=== PATIENT | female | born 1935 | race Caucasian/White ===

== ENCOUNTER 2016-04-18 10:11 | Outpatient (CLI) | payer MEDICARE, OTHER | END 2016-04-18 10:12 | disposition home or self-care (01) | DX: Z13.820 Encounter for screening for osteoporosis (principal); M85.88 Other specified disorders of bone density and structure, other site; Z78.0 Asymptomatic menopausal state ==

== ENCOUNTER 2016-07-01 08:20 | Outpatient (CLI) | payer MEDICARE, OTHER | END 2016-07-01 23:59 | DX: E78.2 Mixed hyperlipidemia (principal); Z79.899 Other long term (current) drug therapy ==

== ENCOUNTER 2016-07-25 09:05 | Outpatient (CLI) | payer MEDICARE, OTHER | END 2016-07-25 09:06 | disposition home or self-care (01) | DX: R47.01 Aphasia (principal); F03.90 Unspecified dementia, unspecified severity, without behavioral disturbance, psychotic disturbance, mood disturbance, and anxiety; I65.22 Occlusion and stenosis of left carotid artery ==

== ENCOUNTER 2016-07-25 09:08 | Outpatient (CLI) | payer MEDICARE, OTHER | END 2016-07-25 09:09 | disposition home or self-care (01) | DX: F03.90 Unspecified dementia, unspecified severity, without behavioral disturbance, psychotic disturbance, mood disturbance, and anxiety (principal); R47.01 Aphasia; J34.89 Other specified disorders of nose and nasal sinuses ==

== ENCOUNTER 2016-07-25 09:24 | Outpatient (CLI) | payer MEDICARE, OTHER | END 2016-07-25 09:25 | disposition home or self-care (01) | DX: D70.9 Neutropenia, unspecified (principal); D63.1 Anemia in chronic kidney disease; R80.9 Proteinuria, unspecified ==

== ENCOUNTER 2016-09-06 16:04 | Outpatient (CLI) | payer MEDICARE, OTHER | END 2016-09-06 16:05 | disposition home or self-care (01) | LOC: LAB.N 16:04 | PROVIDERS: ATTEND Nurse Practitioner Primary Care | DX: F03.90 Unspecified dementia, unspecified severity, without behavioral disturbance, psychotic disturbance, mood disturbance, and anxiety (principal) | CPT/HCPCS: 36415; 82607 ==

== ENCOUNTER 2016-09-19 11:39 | Emergency (ER) | payer MEDICARE, OTHER ==
--- NOTE | 2016-09-19 12:24 | ED Physician Documentation ---
PD HPI CHEST PAIN - Stated complaint Stated Complaint: CHEST PX - Chief complaint Chief Complaint: Cardiac - History obtained from History obtained from: Patient - History of Present Illness Timing - onset: How many days ago (2-3 days of intermittent left chest or shoulder pains, aching and lasts seconds to a minute or two. Random occurrence not associated with position, activity, breathing, eating. Has been left chest at times and left anterior shoulder at times. No feeling of palpitations. No associated dyspnea, lightheaded, nausea, nor pleuritic component.) Timing - onset during: Other (has occurred randomly through the day about 3-4 times each day and lasted just seconds/minute. Has not had it awaken her. Did not feel it with walking around/activity at any point.) Timing - duration: Seconds, Minutes Timing - details: Abrupt onset, Intermittant Quality: Aching Location: Left chest, Left shoulder/arm Radiation: No: Jaw, Neck, Back Improved by: No: Rest Worsened by: No: Exertion, Inspiration, Eating, Movement Associated symptoms: No: Shortness of air, Diaphoresis, Nausea, Feeling faint / dizzy, General Weakness, Palpitations Similar symptoms before: Has not had sx before Recently seen: Not recently seen Review of Systems Constitutional: denies: Fever, Chills Nose: denies: Rhinorrhea / runny nose, Congestion Throat: denies: Sore throat Cardiac: denies: Palpitations, Pedal edema, Calf pain Respiratory: denies: Dyspnea, Cough, Wheezing GI: denies: Abdominal Pain, Nausea, Vomiting, Diarrhea : denies: Dysuria, Frequency Skin: denies: Rash, Lesions Neurologic: denies: Focal weakness, Numbness, Near syncope, Altered mental status, Headache Psychiatric: denies: Insomnia Endocrine: denies: Weight loss Immunocompromised: denies: Immunocompromised PD PAST MEDICAL HISTORY - Past Medical History Past Medical History: Yes Cardiovascular: Congestive heart failure, Hypertension, High cholesterol, Murmur Respiratory: None Neuro: Peripheral neuropathy Endocrine/Autoimmune: None GI: Ulcers, Colon polyps : None HEENT: Chronic sinusitis Psych: None Musculoskeletal: Osteoarthritis Derm: None - Past Surgical History Past Surgical History: Yes General: Appendectomy, Colonoscopy, EGD Ortho: Knee replacement, 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, Oophrectomy Cardiovascular: Other HEENT: Cataracts - Present Medications Home Medications: Ambulatory Orders Medication Instructions Recorded Confirmed Doxazosin [Cardura] 4 mg PO BID 08/09/12 09/19/16 Gabapentin 1,200 mg PO BID 08/09/12 09/19/16 Multivitamin [Multivitamins] 1 each PO DAILY 08/09/12 09/19/16 Polyethylene Glycol 3350 [Miralax] 17 gm PO DAILY PRN 08/09/12 09/19/16 hydrALAZINE [Apresoline] 50 mg PO BID 08/09/12 09/19/16 Allopurinol 100 mg PO DAILY 09/10/12 09/19/16 Acetaminophen [Tylenol] 500 mg PO Q6H PRN 12/31/12 09/19/16 Furosemide [Lasix] 40 mg PO DAILY 04/17/13 09/19/16 DULoxetine [Cymbalta] 20 mg PO DAILY 07/27/16 09/19/16 - Allergies Allergies/Adverse Reactions: Allergies Allergy/AdvReac Type Severity Reaction Status Date / Time amoxicillin trihydrate * AdvReac Rash Verified 09/19/16 11:53 [From Augmentin] niacin AdvReac Rash Verified 09/19/16 11:53 [From Niaspan Extended-Release] potassium clavulanate * AdvReac Rash Verified 09/19/16 11:53 [From Augmentin] - Social History Does the pt smoke?: No Smoking Status: Former smoker Does the pt drink ETOH?: Yes Does the pt have substance abuse?: No - Family History Family history: reports: Non contributory - Immunizations Immunizations are current?: Yes - POLST Patient has POLST: No PD ED PE NORMAL - Vitals Vital signs reviewed: Yes - General General: Alert and oriented X 3, Well developed/nourished, Other (some short term memory deficit but alert and conversant.) - HEENT HEENT: Atraumatic, Pharynx benign - Neck Neck: Supple, no meningeal sign, No adenopathy, No JVD - Cardiac Cardiac: RRR, Other (2/6 murmur left chest to back likely c/w mitral valve; patient says she has had murmur since age 9.) - Respiratory Respiratory: Clear bilaterally - Abdomen Abdomen: Soft, Non tender - Back Back: No CVA TTP - Derm Derm: Normal color, Warm and dry - Extremities Extremities: No deformity, Normal ROM s pain, No edema, No calf tenderness / cord - Neuro Neuro: Alert and oriented X 3, No motor deficit, Normal speech - Psych Psych: Normal mood, Normal affect Results - Vitals Vitals: Vital Signs - 24 hr 09/19/16 09/19/16 09/19/16 11:42 11:45 12:15 Temperature 36.4 C L Heart Rate 57 L 58 L Respiratory 16 18 Rate Blood Pressure 174/60 H 176/62 H Blood Pressure 160/82 H [Right] O2 Saturation 94 98 09/19/16 09/19/16 13:10 14:05 Temperature Heart Rate 57 L 58 L Respiratory 16 16 Rate Blood Pressure 172/61 H 166/56 H Blood Pressure [Right] O2 Saturation 97 Oxygen O2 Source Room air - EKG (time done) 11:49 Rate: Rate (enter#) (55), Jim Rhythm: Sinus bradycardia [place]: Normal Intervals: Normal [place] QRS: Normal Ischemia: Normal ST segments, ST elevation c/w repol. No: ST elevation c/w ischemia, ST depression, T wave inversion - Labs Labs: Laboratory Tests 09/19/16 09/19/16 09/19/16 11:58 11:58 11:58 WBC 3.7 L RBC 3.70 L Hgb 11.8 L Hct 35.9 L MCV 96.8 MCH 31.8 H MCHC 32.8 RDW 15.8 H Plt Count 99 L MPV 10.5 Neut # 2.2 Lymph # 1.1 L Ward # 0.3 Eos # 0.1 Baso # 0.0 Absolute Nucleated RBC 0.00 Nucleated RBCs 0.1 Sodium 140 Potassium 5.9 H Chloride 108 Carbon Dioxide 23 Anion Gap 9.0 BUN 93 H* Creatinine 2.3 H Estimated GFR (MDRD) 20 L Glucose 85 Calcium 10.5 H Total Bilirubin 0.7 AST 43 H ALT 39 Alkaline Phosphatase 70 Troponin I < 0.04 B-Natriuretic Peptide Total Protein 7.2 Albumin 4.4 Globulin 2.8 Albumin/Globulin Ratio 1.6 Lipase 64 H 09/19/16 11:58 WBC RBC Hgb Hct MCV MCH MCHC RDW Plt Count MPV Neut # Lymph # Ward # Eos # Baso # Absolute Nucleated RBC Nucleated RBCs Sodium Potassium Chloride Carbon Dioxide Anion Gap BUN Creatinine Estimated GFR (MDRD) Glucose Calcium Total Bilirubin AST ALT Alkaline Phosphatase Troponin I B-Natriuretic Peptide 123 H Total Protein Albumin Globulin Albumin/Globulin Ratio Lipase - Rads (name of study) chest Radiology: Prelim report reviewed (no acute process) PD MEDICAL DECISION MAKING - ED course Complexity details: reviewed results, considered differential (brief, nonexertional left chest/shoulder pains for the past couple of days. Normal labs. Unclear etiology but not having markers to suggest threatening process. ) , d/w patient Departure - Departure Disposition: 01 Home, Self Care Clinical Impression: Intermittent left-sided chest pain, Chronic kidney disease stage 4 Condition: Stable Record reviewed to determine appropriate education?: Yes Instructions: ED Chest Pain Atypical Unkn Cause Follow-Up: Daina Burnham MD [Primary Care Provider] - Comments: Tylenol 500 mg 4 times daily for pain as needed. Usual medications. Recheck with PMD if symptoms persist. Return to ED if consistent/worse pain. At least one of your blood pressure readings in the ER today was elevated above the normal level. If you have diagnosed high blood pressure in the past, please be sure you are taking your BP medications and eating low salt diet. If you do not have know high BP, then being high today does not mean it is a rat exterminator issue. It might be reactively high to the situation that has you here. You should follow up with your primary care to have the blood pressure checked again in the next few days/week or so to see if it is persistently high. If so, then you may need medication or changes in diet/lifestyle to treat it. Discharge Date/Time: 09/19/16 14:21
[2016-09-19] MEDS ORDERED: ASPIRIN 325 MG TABLET PO STA (12:42)
[2016-09-19] MEDS ORDERED: ASPIRIN 325 MG TABLET PO ONE (12:47)
[2016-09-19 12:59] LABS: BASOPHILS % (AUTO) 0.7 %; EOSINOPHILS # (AUTO) 0.1 10^3/uL (0.0-0.7); EOSINOPHILS % (AUTO) 2.5 %; HCT - HEMATOCRIT 35.9 % (37.0-47.0); HGB - HEMOGLOBIN 11.8 g/dL (12.0-16.0); LYMPHOCYTES # (AUTO) 1.1 10^3/uL (1.5-3.5); LYMPHOCYTES % (AUTO) 29.5 %; MEAN CORPUSCULAR HEMOGLOBIN 31.8 pg (27.0-31.0); MEAN CORPUSCULAR HGB CONC 32.8 g/dL (32.0-36.0); MEAN CORPUSCULAR VOLUME 96.8 fL (81.0-99.0); MEAN PLATELET VOLUME 10.5 fL (7.9-10.8); MONOCYTES # (AUTO) 0.3 10^3/uL (0.0-1.0); MONOCYTES % (AUTO) 8.2 %; NEUTROPHILS # (AUTO) 2.2 10^3/uL (1.5-6.6); NEUTROPHILS % (AUTO) 59.1 %; NUCLEATED RED BLOOD CELLS AUTO 0.1 /100WBC; RED CELL DISTRIBUTION WIDTH 15.8 % (12.0-15.0); UNCORRECTED WHITE BLOOD COUNT 3.7 x10^3/uL; WHITE BLOOD COUNT 3.7 x10^3/uL (4.8-10.8)
[2016-09-19 13:11] LABS: ALBUMIN/GLOBULIN RATIO 1.6 (1.0-2.2); BILIRUBIN,TOTAL 0.7 mg/dL (0.2-1.0); CALCIUM 10.5 mg/dL (8.5-10.3); CREATININE 2.3 mg/dL (0.4-1.0); POTASSIUM 5.9 mmol/L (3.5-5.0); TOTAL PROTEIN 7.2 g/dL (6.7-8.2)
--- NOTE | 2016-09-19 13:28 | XRAY Preliminary Report ---
Exam: XR Chest 2 View PA/LAT IMPRESSION: No acute pulmonary consolidation. [facility] SITE ID: [id number]
--- NOTE | 2016-09-19 13:31 | XRAY Report ---
EXAM: CHEST RADIOGRAPHY EXAM DATE: 09/19/2016 01:00 PM. CLINICAL HISTORY: Intermittent left chest pain for 3-4 days. COMPARISON: Chest x-ray 04/07/2010. TECHNIQUE: 2 views. FINDINGS: Lungs/Pleura: No focal opacities evident. No pleural effusion. No pneumothorax. Normal volumes. Mediastinum: Normal heart size with mild aortic tortuosity. Other: Leftward curvature of the lumbar spine status post lumbar spine surgery. Prominent thoracic os teophytes. IMPRESSION: No acute pulmonary consolidation. [facility] Referring Provider Line: [phone] SITE ID: [id number]
[2016-09-19 14:06] VITALS: BP 166/56
== END 2016-09-19 14:21 | disposition home or self-care (01) ==
LOC: ED 11:39
DX: R07.9 Chest pain, unspecified (principal); I13.0 Hypertensive heart and chronic kidney disease with heart failure and stage 1 through stage 4 chronic kidney disease, or unspecified chronic kidney disease; N18.4 Chronic kidney disease, stage 4 (severe); I50.9 Heart failure, unspecified; R00.1 Bradycardia, unspecified; R01.1 Cardiac murmur, unspecified; Z87.891 Personal history of nicotine dependence
CPT/HCPCS: 36415; 71020; 80053; 83690; 83880; 84484; 85025; 93005; 93010; 99284; A9270

== ENCOUNTER 2016-11-18 10:25 | Emergency (ER) | payer MEDICARE, OTHER ==
--- NOTE | 2016-11-18 12:17 | ED Physician Documentation ---
History of Present Illness - Stated complaint Stated Complaint: NECK PX,LT EAR PX - Chief complaint Chief Complaint: Heent - History obtained from History obtained from: Patient - History of Present Illness Timing: How many weeks ago (2) Pain level max: 5 Pain level now: 5 Improved by: nothing Worsened by: palpation - Additonal information Additional information: Patient is an 81-year-old female who presents to the emergency department complaint of left-sided neck pain that runs along the course of her carotid artery. She states that this has been present for the past 2 weeks, though she is unsure of the timeframe. Her answers alternated from a few days to approximately 1 month. States she has seen her doctor for this and "had several tests". Does not recall what these tests are. States that she hears a whooshing sound in her left ear. States that the pain is worse with palpation, movement does not really affect the pain. Eating and drinking did not affect the pain. Has not been sick recently. No fevers. Has a right-sided carotid endarterectomy in the past. Review of Systems Ten Systems: 10 systems reviewed and negative Constitutional: denies: Fever, Chills Eyes: denies: Decreased vision, Photophobia Ears: denies: Ear pain Nose: denies: Rhinorrhea / runny nose, Congestion Throat: denies: Sore throat Cardiac: denies: Chest pain / pressure Respiratory: denies: Cough GI: denies: Abdominal Pain, Nausea, Vomiting, Diarrhea Skin: denies: Rash Musculoskeletal: denies: Back pain Neurologic: denies: Focal weakness, Numbness, Seizure, Headache, Head injury PD PAST MEDICAL HISTORY - Past Medical History Past Medical History: Yes Cardiovascular: Congestive heart failure, Hypertension, High cholesterol, Murmur Respiratory: None Neuro: Peripheral neuropathy Endocrine/Autoimmune: None GI: Ulcers, Colon polyps : None HEENT: Chronic sinusitis Psych: None Musculoskeletal: Osteoarthritis Derm: None - Past Surgical History Past Surgical History: Yes General: Appendectomy, Colonoscopy, EGD Ortho: Knee replacement, 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, Oophrectomy Cardiovascular: Other HEENT: Cataracts - Present Medications Home Medications: Ambulatory Orders Medication Instructions Recorded Confirmed Doxazosin [Cardura] 4 mg PO BID 08/09/12 11/18/16 Gabapentin 1,200 mg PO BID 08/09/12 11/18/16 Multivitamin [Multivitamins] 1 each PO DAILY 08/09/12 11/18/16 Polyethylene Glycol 3350 [Miralax] 17 gm PO DAILY PRN 08/09/12 11/18/16 hydrALAZINE [Apresoline] 50 mg PO BID 08/09/12 11/18/16 Allopurinol 100 mg PO DAILY 09/10/12 11/18/16 Acetaminophen [Tylenol] 500 mg PO Q6H PRN 12/31/12 11/18/16 Furosemide [Lasix] 40 mg PO DAILY 04/17/13 11/18/16 DULoxetine [Cymbalta] 20 mg PO DAILY 07/27/16 11/18/16 Fludrocortisone [Florinef] 0.1 mg PO DAILY 11/16/16 11/18/16 - Allergies Allergies/Adverse Reactions: Allergies Allergy/AdvReac Type Severity Reaction Status Date / Time amoxicillin trihydrate * AdvReac Rash Verified 11/18/16 10:40 [From Augmentin] niacin AdvReac Rash Verified 11/18/16 10:40 [From Niaspan Extended-Release] potassium clavulanate * AdvReac Rash Verified 11/18/16 10:40 [From Augmentin] - Social History Does the pt smoke?: No Smoking Status: Former smoker Does the pt drink ETOH?: Yes Does the pt have substance abuse?: No - Immunizations Immunizations are current?: Yes - POLST Patient has POLST: No PD ED PE NORMAL - Vitals Vital signs reviewed: Yes - General General: Alert and oriented X 3, No acute distress, Well developed/nourished - HEENT HEENT: PERRL, EOMI, Ears normal, Moist mucous membranes, Pharynx benign - Neck Neck: Supple, no meningeal sign, Other (Tender to palpation along the length of the left carotid artery. This reproduces her pain. She also has some tenderness in the posterior aspect of the sternocleidomastoid muscle. No overlying skin changes. No bruit.) - Cardiac Cardiac: RRR, Strong equal pulses - Respiratory Respiratory: No respiratory distress, Clear bilaterally - Abdomen Abdomen: Soft, Non tender, Non distended - Derm Derm: Warm and dry, No rash - Extremities Extremities: No edema - Neuro Neuro: Alert and oriented X 3, tax services professional 2-12 intact, No motor deficit, No sensory deficit, Normal speech - Psych Psych: Normal mood, Normal affect Results - Vitals Vitals: Vital Signs - 24 hr 11/18/16 11/18/16 10:35 14:17 Temperature 36.1 C L 35.6 C L Heart Rate 69 60 Respiratory 20 16 Rate Blood Pressure 179/70 H 180/78 H O2 Saturation 96 98 Oxygen O2 Source Room air - Rads (name of study) carotid US Radiology: Prelim report reviewed, EMP read contemporaneously, See rad report ( extensive plaque, no change from July 2016. ) PD MEDICAL DECISION MAKING - ED course Complexity details: reviewed old records, reviewed results, re-evaluated patient , considered differential, d/w patient ED course: Patient is an 81-year-old female with mild dementia which makes her a difficult historian. She is complaining of left-sided neck pain for the past several weeks. She was tender over the carotid artery, therefore an ultrasound was performed which reveals no acute abnormalities. MRI is not available today for MRA. She does not have any Raheem syndrome. She is unable to have a CT scan because of her renal function. She is well-appearing, nontoxic. Cranial nerves intact. Symptoms resolved in the emergency department. She would like to go home at this time and has an appointment with her doctor on Monday. She will return sooner if she worsens. Normal examination of the ear. No mastoid tenderness. No temporal artery tenderness. Possible muscular pain over the sternocleidomastoid? No skin changes. Patient counseled regarding signs and symptoms for which I believe and urgent re-evaluation would be necessary. Patient with good understanding of and agreement to plan and is comfortable going home at this time This document was made in part using voice recognition software. While efforts are made to proofread this document, sound alike and grammatical errors may occur. Departure - Departure Disposition: Home, Self Care Clinical Impression: Neck pain on left side Condition: Good Instructions: ED Neck Pain No Trauma Follow-Up: Logan Burnham MD [Primary Care Provider] - 11/22/16 Comments: Return if you worsen. You can take tylenol for the pain. Your doctor may consider and MRA of your neck if your symptoms are worsening. Discharge Date/Time: 11/18/16 14:17
[2016-11-18 14:28] VITALS: BP 180/78
--- NOTE | 2016-11-22 10:13 | Ultrasound Report ---
CAROTID DUPLEX: 11/18/2016 CLINICAL INDICATION: Left neck pain. COMPARISON: 07/25/2016. TECHNIQUE: Real-time sonographic vascular imaging was performed by the water softener service supervisor through the carotid arteries utilizing both color-flow and Doppler spectral analysis. Multiple outreach representative static images were saved for review. Vessel PSV cm/sec 2D Plaque Estimate % ICA/CCA PSV EDV cm/sec % Stenosis RCCA Prox 75 -- RCCA Dist 99 14 RECA 151 -- RT BULB 105 -- 1.0 14 VAISHNAVI Prox 89 -- 0.89 21 VAISHNAVI Mid 92 -- 0.92 22 VAISHNAVI Dist 119 -- 1.20 27 RVA 41 RVA flow direction: Antegrade. Vessel PSV cm/sec 2D Plaque Estimate % ICA/CCA PSV EDV cm/sec % Stenosis LCCA Prox 65 -- LCCA Dist 62 10 LECA 102 -- LFT BULB 48 -- 0.77 6 LICA Prox 115 -- 1.85 10 LICA Mid 112 -- 1.80 19 LICA Dist 90 -- 1.45 20 LVA 122 LVA flow direction: Antegrade. Velocity criteria are extrapolated from diameter data as defined by the Society of Radiologists in Ultrasound Consensus Conference Radiology 2003; 229; 340-346. Degree of Stenosis % ICA PSV cm/sec Plaque Estimate % ICA/CCA RSV Ratio ICA EDV cm/sec Normal < 125 None < 2.0 < 40 <50 < 125 < 50 < 2.0 < 40 50-69 125 - 130 >/= 50 2.0 - 4.0 40 - 100 >/= 70 but less than near occlusion > 230 >/= 50 > 4.0 > 100 Near occlusion High, low, or undetectable Visible lumen Variable Variable Total occlusion Undetectable No detectable lumen Not applicable Not applicable FINDINGS: RIGHT: There is minimal residual plaquing in the right carotid bifurcation, without evidence of a focal hemodynamically significant carotid stenosis. LEFT: There is calcified plaquing in the left carotid bifurcation, without evidence of a focal hemodynamically significant internal carotid stenosis. The vertebral arteries demonstrate antegrade flow bilaterally. IMPRESSION: STABLE BILATERAL PLAQUING, WITH NO EVIDENCE OF A FOCAL HEMODYNAMICALLY SIGNIFICANT CAROTID STENOSIS. MTDD
== END 2016-11-18 14:17 | disposition home or self-care (01) ==
LOC: ED 10:25
DX: M54.2 Cervicalgia (principal); H92.02 Otalgia, left ear; I11.0 Hypertensive heart disease with heart failure; I50.9 Heart failure, unspecified; E78.00 Pure hypercholesterolemia, unspecified; G62.9 Polyneuropathy, unspecified; M19.90 Unspecified osteoarthritis, unspecified site; Z86.010 Personal history of colon polyps; Z87.11 Personal history of peptic ulcer disease; Z87.891 Personal history of nicotine dependence
CPT/HCPCS: 80053; 83690; 85025; 93880; 99283; 99284

== ENCOUNTER 2016-12-02 10:40 | Emergency (ER) | payer MEDICARE, OTHER ==
[2016-12-02] MEDS ORDERED: SODIUM CHLORIDE 0.9% 1,000 ML IV ONE ×2 (11:51→13:43)
[2016-12-02 12:16] LABS: BASOPHILS % (AUTO) 0.5 %; EOSINOPHILS % (AUTO) 1.5 %; HCT - HEMATOCRIT 30.2 % (37.0-47.0); LYMPHOCYTES # (AUTO) 0.7 10^3/uL (1.5-3.5); LYMPHOCYTES % (AUTO) 21.4 %; MEAN CORPUSCULAR HEMOGLOBIN 32.2 pg (27.0-31.0); MEAN CORPUSCULAR HGB CONC 33.2 g/dL (32.0-36.0); MEAN CORPUSCULAR VOLUME 97.1 fL (81.0-99.0); MEAN PLATELET VOLUME 9.1 fL (7.9-10.8); MONOCYTES # (AUTO) 0.3 10^3/uL (0.0-1.0); MONOCYTES % (AUTO) 8.6 %; NEUTROPHILS # (AUTO) 2.1 10^3/uL (1.5-6.6); RED BLOOD COUNT 3.11 10^6/uL (4.20-5.40); RED CELL DISTRIBUTION WIDTH 16.7 % (12.0-15.0); UNCORRECTED WHITE BLOOD COUNT 3.1 x10^3/uL; WHITE BLOOD COUNT 3.1 x10^3/uL (4.8-10.8)
[2016-12-02 12:23] LABS: ALBUMIN/GLOBULIN RATIO 1.5 (1.0-2.2); BILIRUBIN,TOTAL 0.5 mg/dL (0.2-1.0); CALCIUM 9.5 mg/dL (8.5-10.3); CREATININE 2.5 mg/dL (0.4-1.0); POTASSIUM 4.3 mmol/L (3.5-5.0)
--- NOTE | 2016-12-02 13:26 | CT Preliminary Report ---
Exam: CT Head W/O IMPRESSION: 1. No acute intracranial abnormality. 2. Moderate patchy white matter hypodensity throughout the cerebral hemispheres. This is nonspecific but typically secondary to small vessel ischemic change. 3. Intracranial atherosclerotic vascular calcifications. 4. Partial opacification involving peripheral mastoid air cells on the left. This likely is improved compared to recent MRI. [facility] SITE ID: [id number]
--- NOTE | 2016-12-02 13:29 | CT Report ---
EXAM: CT HEAD EXAM DATE: 12/02/2016 12:27 PM. CLINICAL HISTORY: Confusion, with expressive aphasia. COMPARISON: MRI of the brain 07/25/2016. CT scan of the head 09/06/2013. TECHNIQUE: Multiaxial CT images were obtained from the foramen magnum to the vertex. IV contrast: Non e. Reformats: Coronal. In accordance with CT protocol optimization, one or more of the following dose reduction techniques w ere utilized for this exam: automated exposure control, adjustment of mA and/or KV based on patient s ize, or use of iterative reconstructive technique. FINDINGS: Parenchyma: Moderate patchy white matter hypodensity is seen throughout the cerebral hemispheres. Mod erate vascular calcifications are seen involving the cavernous ICA. No intraparenchymal hemorrhage. N o evidence of mass, midline shift, or CT findings of infarction. Trimble-white differentiation is distin ct. Extraaxial Spaces: Normal for age. No subdural or epidural collections identified. Ventricles: No hydrocephalus. Sinuses: Partial opacification is seen involving peripheral mastoid air cells diffusely. Middle ear c avity is clear. Right mastoid air cells and middle ear cavity are clear. Partially visualized paranas al sinuses are clear. Bones: No evidence of fracture or calvarial defect. Other: None. IMPRESSION: 1. No acute intracranial abnormality. 2. Moderate patchy white matter hypodensity throughout the cerebral hemispheres. This is nonspecific but typically secondary to small vessel ischemic change. 3. Intracranial atherosclerotic vascular calcifications. 4. Partial opacification involving peripheral mastoid air cells on the left. This likely is improved compared to recent MRI. [facility] Referring Provider Line: [phone] SITE ID: [id number]
--- NOTE | 2016-12-02 13:38 | ED Physician Documentation ---
History of Present Illness - Stated complaint Stated Complaint: CONFUSED - Chief complaint Chief Complaint: General - History obtained from History obtained from: Patient, Family (Spouse) - Additonal information Additional information: The patient is an 81-year-old female who is brought to the emergency department by her because of increased confusion, that is worse than usual lately. Last night she was unable to operate the stove, and put meat directly on the burner of the stove. This morning she was unable to get out of the car by herself, and did not understand simple instructions. She has had confusion for several months, and has been evaluated by a neurologist for expressive aphasia. She underwent MRI of the brain in July 2016, and it revealed bihemispheric abnormalities consistent with small vessel disease. She had diarrhea earlier in the week, but that has gotten better since her aquatic habitat biologist changed her medication, decreasing her gabapentin and changing her Lasix dosage. Her diarrhea has since resolved. She has had no fever, cough, chest pain, nausea, vomiting, or dysuria. Review of Systems Unable to obtain: Confused, Other ( assists with history and review of systems.) Constitutional: denies: Fever Nose: denies: Congestion Throat: denies: Sore throat Cardiac: denies: Chest pain / pressure Respiratory: denies: Dyspnea, Cough GI: reports: Diarrhea. denies: Abdominal Pain, Nausea, Vomiting : denies: Dysuria Skin: denies: Rash Musculoskeletal: denies: Extremity swelling Neurologic: reports: Generalized weakness, Confused. 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, Oophrectomy Cardiovascular: Other HEENT: Cataracts - Present Medications Home Medications: Ambulatory Orders Medication Instructions Recorded Confirmed Doxazosin [Cardura] 4 mg PO BID 08/09/12 11/18/16 Gabapentin 1,200 mg PO BID 08/09/12 11/18/16 Multivitamin [Multivitamins] 1 each PO DAILY 08/09/12 11/18/16 Polyethylene Glycol 3350 [Miralax] 17 gm PO DAILY PRN 08/09/12 11/18/16 hydrALAZINE [Apresoline] 50 mg PO BID 08/09/12 11/18/16 Allopurinol 100 mg PO DAILY 09/10/12 11/18/16 Acetaminophen [Tylenol] 500 mg PO Q6H PRN 12/31/12 11/18/16 Furosemide [Lasix] 40 mg PO DAILY 04/17/13 11/18/16 DULoxetine [Cymbalta] 20 mg PO DAILY 07/27/16 11/18/16 Fludrocortisone [Florinef] 0.1 mg PO DAILY 11/16/16 11/18/16 - Allergies Allergies/Adverse Reactions: Allergies Allergy/AdvReac Type Severity Reaction Status Date / Time amoxicillin trihydrate * AdvReac Rash Verified 11/18/16 10:40 [From Augmentin] niacin AdvReac Rash Verified 11/18/16 10:40 [From Niaspan Extended-Release] potassium clavulanate * AdvReac Rash Verified 11/18/16 10:40 [From Augmentin] - Social History Does the pt smoke?: No Smoking Status: Former smoker Does the pt drink ETOH?: Yes Does the pt have substance abuse?: No - Immunizations Immunizations are current?: Yes - POLST Patient has POLST: No PD ED PE NORMAL - Vitals Vital signs reviewed: Yes (Diastolic hypotension.) - General General: Well developed/nourished, Other (Sleepy, but easily arousable. Oriented 2.) - HEENT HEENT: Atraumatic, PERRL, EOMI, Pharynx benign, Other (Dry oral mucosa.) - Neck Neck: Supple, no meningeal sign, No adenopathy, No JVD - Cardiac Cardiac: RRR, Other (1/6 systolic murmur.) - Respiratory Respiratory: No respiratory distress, Clear bilaterally - Abdomen Abdomen: Soft, Non tender, No organomegaly - Back Back: No CVA TTP - Derm Derm: No rash - Extremities Extremities: No edema, No calf tenderness / cord - Neuro Neuro: No motor deficit (Oriented x 2, confused with regard to year. Generalized weakness, without focal motor deficit detected. Expressive aphasia , with difficulty finding words to express her thoughts. No ataxia or sensory deficit detected.) Results - Vitals Vitals: Vital Signs - 24 hr 12/02/16 12/02/16 12/02/16 10:46 12:59 15:03 Temperature 36.2 C L Heart Rate 77 73 68 Respiratory 16 16 16 Rate Blood Pressure 116/44 L 143/66 H O2 Saturation 97 98 95 12/02/16 16:09 Temperature Heart Rate 78 Respiratory 16 Rate Blood Pressure 163/64 H O2 Saturation 98 Oxygen O2 Source Room air - Labs Labs: Laboratory Tests 12/02/16 12/02/16 12/02/16 12:00 12:00 15:00 WBC 3.1 L RBC 3.11 L Hgb 10.0 L Hct 30.2 L MCV 97.1 MCH 32.2 H MCHC 33.2 RDW 16.7 H Plt Count 116 L MPV 9.1 Neut # 2.1 Lymph # 0.7 L [place] # 0.3 Eos # 0.0 Baso # 0.0 Absolute Nucleated RBC 0.00 Nucleated RBCs 0.0 Sodium 140 Potassium 4.3 Chloride 110 Carbon Dioxide 24 Anion Gap 6.0 BUN 52 H Creatinine 2.5 H Estimated GFR (MDRD) 18 L Glucose 158 H Calcium 9.5 Total Bilirubin 0.5 AST 33 ALT 24 Alkaline Phosphatase 67 Total Protein 6.0 L Albumin 3.6 Globulin 2.4 Albumin/Globulin Ratio 1.5 Lipase 44 Urine Color YELLOW Urine Clarity CLEAR Urine pH 5.5 Ur Specific [place] 1.020 Urine Protein 100 H Urine Glucose (UA) NEGATIVE Urine Ketones NEGATIVE Urine Occult Blood TRACE-INTA Urine Nitrite NEGATIVE Urine Bilirubin NEGATIVE Urine Urobilinogen 0.2 (NORMAL) Ur Leukocyte Esterase NEGATIVE Urine RBC 0-5 Urine WBC 0-3 Ur Squamous Epith Cells FEW Squamous Urine Bacteria Rare Ur Microscopic Review INDICATED Urine Culture Comments NOT INDICATED - Rads (name of study) Head CT w/o Radiology: Prelim report reviewed, EMP read contemporaneously, See rad report (1 ) No acute intracranial abnormality. 2) Moderate patchy white matter hypodensity throughout the cerebral hemispheres. This is nonspecific but typically secondary to small vessel ischemic change. 3) Intracranial atherosclerotic vascular calcifications. 4) Partial opacification involving peripheral mastoid air cells on the left. This likely is improved compared to recent MRI.) PD MEDICAL DECISION MAKING - ED course Complexity details: reviewed old records, reviewed results, re-evaluated patient , considered differential, d/w patient, d/w family ED course: The patient's presentation is significant for dehydration with mental status changes manifested as confusion and generalized weakness. CT scan of the brain reveals no evidence of acute abnormality, although there is evidence of [place] spheric small vessel disease, which was also revealed on previous MRI from July of this year. Treatment in the emergency department included administration of normal saline 2 L IV. Following this treatment the patient became much more alert, her expressive aphasia markedly improved, and she demonstrates the ability to ambulate with a steady gait and improved strength. Her feels comfortable taking her back home, stating that her mental status and strength has returned nearly to baseline. I discussed with the patient and her the importance of outpatient follow-up, as well as potentially worrisome signs or symptoms that should prompt reevaluation in the emergency department. Departure - Departure Disposition: 01 Home, Self Care Clinical Impression: Confusion with non-focal neuro exam, Dehydration, Chronic kidney disease stage 4 Condition: Stable Instructions: ED Dehydration Follow-Up: Jose Luis Carrington ARNP [Provider Admit Priv/Credential] - Comments: Drink adequate amount of fluids. Follow-up with your primary physician within 1-2 weeks. Call to schedule an appointment. Return to the emergency department if you develop increasing confusion, recurrent dehydration, or otherwise worsening symptoms. Discharge Date/Time: 12/02/16 16:12
[2016-12-02 15:07] LABS: BILIRUBIN,URINE NEGATIVE (NEGATIVE); PH,URINE 5.5 PH (5.0-7.5); UA w/ MICROSCOPIC CHARGE YES
[2016-12-02 15:24] LABS: UR CULTURE IF IND NOT INDICATED; WBC,URINE 0-3 /HPF (0-5)
[2016-12-02 16:11] VITALS: BP 163/64
== END 2016-12-02 16:12 | disposition home or self-care (01) ==
LOC: ED 10:40
DX: E86.0 Dehydration (principal); I13.0 Hypertensive heart and chronic kidney disease with heart failure and stage 1 through stage 4 chronic kidney disease, or unspecified chronic kidney disease; N18.4 Chronic kidney disease, stage 4 (severe); I50.9 Heart failure, unspecified; G62.9 Polyneuropathy, unspecified; Z87.891 Personal history of nicotine dependence
CPT/HCPCS: 36415; 51701; 70450; 80053; 81001; 81003; 83690; 85025; 87086; 99284

== ENCOUNTER 2016-12-13 09:48 | Outpatient (CLI) | payer MEDICARE, OTHER | END 2016-12-13 09:49 | disposition home or self-care (01) | LOC: LAB.N 09:48 | PROVIDERS: ATTEND Internal Medicine Nephrology | DX: N05.9 Unspecified nephritic syndrome with unspecified morphologic changes (principal); R06.2 Wheezing; I11.0 Hypertensive heart disease with heart failure | CPT/HCPCS: 83880 ==

== ENCOUNTER 2017-01-18 08:38 | Outpatient (CLI) | payer MEDICARE, OTHER ==
[2017-01-18 09:44] LABS: CALCIUM 9.6 mg/dL (8.5-10.3); CREATININE 2.1 mg/dL (0.4-1.0); POTASSIUM 5.2 mmol/L (3.5-5.0)
== END 2017-01-18 08:39 | disposition home or self-care (01) ==
LOC: LAB 08:38
PROVIDERS: ATTEND Internal Medicine Nephrology
DX: N05.9 Unspecified nephritic syndrome with unspecified morphologic changes (principal)
CPT/HCPCS: 36415; 80048

== ENCOUNTER 2017-01-31 11:48 | Outpatient (CLI) | payer MEDICARE, OTHER ==
[2017-01-31 19:41] LABS: CALCIUM 9.5 mg/dL (8.5-10.3); CREATININE 1.8 mg/dL (0.4-1.0)
== END 2017-01-31 11:49 | disposition home or self-care (01) ==
LOC: LAB.N 11:48
PROVIDERS: ATTEND Nurse Practitioner Primary Care
DX: I12.9 Hypertensive chronic kidney disease with stage 1 through stage 4 chronic kidney disease, or unspecified chronic kidney disease (principal); N18.4 Chronic kidney disease, stage 4 (severe); Z51.81 Encounter for therapeutic drug level monitoring; Z02.89 Encounter for other administrative examinations
CPT/HCPCS: 36415; 80048

== ENCOUNTER 2017-02-14 09:09 | Inpatient (IN) | payer MEDICARE, OTHER ==
--- NOTE | 2017-02-14 09:20 | ED Physician Documentation ---
History of Present Illness - Stated complaint Stated Complaint: CHEST PX,HIGH BP - Chief complaint Chief Complaint: Cardiac - Additonal information Additional information: hx from pt and pt with severe an dporrly controlled HTN, advanced renal insuff, anemia 2/2 renal insuff (gets procrit) but no hx CAD or CHF was started on nifedipine for HTN about 2 weeks ago but it cause edema so it was dced and her hydralazine was increased instead but the edema did not go away now she has had two days of soa with laying flat so she cannot sleep and associated chest tightness presently chest tightness is 1/10 no fever no cough no abd pain no NVD no blood black BM PMD Puhr, 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 denies: Cough GI: denies: Abdominal Pain, Nausea, Vomiting, Diarrhea, Bloody / black stool Musculoskeletal: reports: Extremity swelling. 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, Oophrectomy Cardiovascular: Other HEENT: Cataracts - Present Medications Home Medications: Ambulatory Orders Medication Instructions Recorded Confirmed Doxazosin [Cardura] 4 mg PO BID 08/09/12 02/14/17 Gabapentin 600 mg PO BID 08/09/12 02/14/17 Multivitamin [Multivitamins] 1 each PO DAILY 08/09/12 02/14/17 Polyethylene Glycol 3350 [Miralax] 17 gm PO DAILY PRN 08/09/12 02/14/17 hydrALAZINE [Apresoline] 50 mg PO BID 08/09/12 02/14/17 Allopurinol 100 mg PO DAILY 09/10/12 02/14/17 DULoxetine [Cymbalta] 20 mg PO DAILY 07/27/16 02/14/17 Acetaminophen 500 mg PO Q6H PRN 02/14/17 02/14/17 Aspirin Chewable [[place] 81 mg PO DAILY 02/14/17 02/14/17 Aspirin] Atorvastatin Calcium 80 mg PO QPM 02/14/17 02/14/17 Docusate Sodium 100 mg PO QPM 02/14/17 02/14/17 Fludrocortisone [Florinef] 0.2 mg PO DAILY 02/14/17 02/14/17 Furosemide [Furosemide] 40 mg PO DAILY 02/14/17 02/14/17 Gabapentin 1,200 mg PO BID 02/14/17 02/14/17 Nifedipine [Nifedipine ER] 30 mg PO QPM 02/14/17 02/14/17 - Allergies Allergies/Adverse Reactions: Allergies Allergy/AdvReac Type Severity Reaction Status Date / Time amoxicillin trihydrate * AdvReac Rash Verified 11/18/16 10:40 [From Augmentin] niacin AdvReac Rash Verified 11/18/16 10:40 [From Niaspan Extended-Release] nifedipine AdvReac Edema Verified 02/14/17 09:17 potassium clavulanate * AdvReac Rash Verified 11/18/16 10:40 [From Augmentin] - Social History Does the pt smoke?: No Smoking Status: Former smoker Does the pt drink ETOH?: Yes Does the pt have substance abuse?: No - Immunizations Immunizations are current?: Yes - POLST Patient has POLST: No PD ED PE NORMAL - Vitals Vital signs reviewed: Yes - Cardiac Cardiac: RRR - Respiratory Respiratory: No respiratory distress - Abdomen Abdomen: Soft, Non tender - Derm Derm: Normal color - Extremities Extremities: Other (3+ edema maco LE and alos edema to upper ext) Results - Vitals Vitals: Vital Signs - 24 hr 02/14/17 02/14/17 02/14/17 09:13 10:07 10:33 Temperature 36.1 C L Heart Rate 78 66 Respiratory 20 14 Rate Blood Pressure 208/58 H 186/55 H O2 Saturation 96 96 Oxygen O2 Source Room air - EKG (time done) 0915 Rate: Rate (enter#) (78) Rhythm: NSR [place]: Normal Intervals: Normal PA Ischemia: Q waves (III V1) Compare to prior EKG: Other (similar to September 2016 EKG) - Labs Labs: Laboratory Tests 02/14/17 02/14/17 02/14/17 09:48 09:48 09:48 WBC 4.3 L RBC 3.47 L Hgb 10.7 L Hct 32.6 L MCV 93.8 MCH 30.8 MCHC 32.8 RDW 17.9 H Plt Count 121 L MPV 9.3 Neut # 2.9 Lymph # 0.9 L [place] # 0.4 Eos # 0.1 Baso # 0.0 Absolute Nucleated RBC 0.00 Nucleated RBC % 0.1 Manual Slide Review Indicated Platelet Estimate DECREASED (<130,000) Platelet Morphology NORMAL APPEARANCE RBC Morph Micro Appear NORMAL APPEARANCE Sodium 141 Potassium 3.8 Chloride 109 Carbon Dioxide 22 Anion Gap 10.0 BUN 38 H Creatinine 1.7 H Estimated GFR (MDRD) 29 L Glucose 121 H Calcium 9.2 Total Bilirubin 0.7 AST 28 ALT 23 Alkaline Phosphatase 88 Troponin I < 0.04 B-Natriuretic Peptide Total Protein 5.7 L Albumin 3.2 Globulin 2.5 Albumin/Globulin Ratio 1.3 Lipase 35 02/14/17 09:48 WBC RBC Hgb Hct MCV MCH MCHC RDW Plt Count MPV Neut # Lymph # [place] # Eos # Baso # Absolute Nucleated RBC Nucleated RBC % Manual Slide Review Platelet Estimate Platelet Morphology RBC Morph Micro Appear Sodium Potassium Chloride Carbon Dioxide Anion Gap BUN Creatinine Estimated GFR (MDRD) Glucose Calcium Total Bilirubin AST ALT Alkaline Phosphatase Troponin I B-Natriuretic Peptide 400 H Total Protein Albumin Globulin Albumin/Globulin Ratio Lipase PD MEDICAL DECISION MAKING - ED course ED course: last echo 2015 showed LVH and EF 70% new onset CHF and chest pain with heart score of 7 gave nitro paste (for CP edema and HTN), asa and a small dose of lasix note pt is on florinef but do not think this process merits a stress dose Departure - Departure Disposition: [facility] DC/Xfer Clinical Impression: Renal insufficiency Chest pain Qualifiers: Chest pain type: unspecified Qualified Code(s): R07.9 - Chest pain, unspecified CHF (congestive heart failure) Qualifiers: Congestive heart failure type: unspecified congestive heart failure type Congestive heart failure chronicity: unspecified congestive heart failure chronicity Qualified Code(s): I50.9 - Heart failure, unspecified Edema Qualifiers: Edema type: unspecified Qualified Code(s): R60.9 - Edema, unspecified Condition: Fair Discharge Date/Time: 02/14/17 12:17
[2017-02-14 09:40] LABS: BASOPHILS % (AUTO) 0.6 %; EOSINOPHILS # (AUTO) 0.1 10^3/uL (0.0-0.7); EOSINOPHILS % (AUTO) 3.1 %; HCT - HEMATOCRIT 32.6 % (37.0-47.0); HGB - HEMOGLOBIN 10.7 g/dL (12.0-16.0); LYMPHOCYTES # (AUTO) 0.9 10^3/uL (1.5-3.5); LYMPHOCYTES % (AUTO) 20.8 %; MEAN CORPUSCULAR HEMOGLOBIN 30.8 pg (27.0-31.0); MEAN CORPUSCULAR HGB CONC 32.8 g/dL (32.0-36.0); MEAN CORPUSCULAR VOLUME 93.8 fL (81.0-99.0); MEAN PLATELET VOLUME 9.3 fL (7.9-10.8); MONOCYTES # (AUTO) 0.4 10^3/uL (0.0-1.0); MONOCYTES % (AUTO) 9.2 %; NEUTROPHILS # (AUTO) 2.9 10^3/uL (1.5-6.6); NEUTROPHILS % (AUTO) 66.3 %; NUCLEATED RED BLOOD CELLS AUTO 0.1 /100WBC; RED BLOOD COUNT 3.47 10^6/uL (4.20-5.40); RED CELL DISTRIBUTION WIDTH 17.9 % (12.0-15.0); UNCORRECTED WHITE BLOOD COUNT 4.3 x10^3/uL; WHITE BLOOD COUNT 4.3 x10^3/uL (4.8-10.8)
[2017-02-14] MEDS ORDERED: NITROGLYCERIN 2% PASTE TOP STA (09:43)
[2017-02-14] MEDS ORDERED: NITROGLYCERIN 2% PASTE TOP ONE (09:56)
[2017-02-14 10:05] LABS: PLATELET ESTIMATE, MANUAL DECREASED (<130,000) (NORMAL); PLATELET MORPHOLOGY NORMAL APPEARANCE (NORMAL)
[2017-02-14 10:06] LABS: ALBUMIN/GLOBULIN RATIO 1.3 (1.0-2.2); BILIRUBIN,TOTAL 0.7 mg/dL (0.2-1.0); CALCIUM 9.2 mg/dL (8.5-10.3); CREATININE 1.7 mg/dL (0.4-1.0); POTASSIUM 3.8 mmol/L (3.5-5.0); TOTAL PROTEIN 5.7 g/dL (6.7-8.2)
--- NOTE | 2017-02-14 10:23 | XRAY Preliminary Report ---
Exam: XR CHEST 1 VIEW IMPRESSION: Poor inspiration. Probable congestive heart failure with bibasilar atelectasis and poten tial airspace disease. [facility] SITE ID: [id number]
[2017-02-14] MEDS ORDERED: FUROSEMIDE 40 MG/4 ML VIAL IVP STA (10:25)
[2017-02-14] MEDS ORDERED: ASPIRIN CHEW 81 MG TABLET PO STA (10:25)
--- NOTE | 2017-02-14 10:25 | XRAY Report ---
EXAM: CHEST RADIOGRAPHY EXAM DATE: 02/14/2017 10:14 AM. CLINICAL HISTORY: Chest pain and orthopnea. COMPARISON: Chest x-ray 09/19/2016. TECHNIQUE: 1 view. FINDINGS: Lungs/Pleura: Hazy bibasilar opacities. No pneumothorax. Diminished lung volumes. Diffuse pulmonary v ascular prominence. Mediastinum: Cardiac silhouette is magnified by AP portable technique. Other: None. IMPRESSION: Poor inspiration. Probable congestive heart failure with bibasilar atelectasis and poten tial airspace disease. [facility] Referring Provider Line: [phone] SITE ID: [id number]
[2017-02-14] MEDS ORDERED: ASPIRIN CHEW 81 MG TABLET ONE (10:34)
[2017-02-14] MEDS ORDERED: FUROSEMIDE 40 MG/4 ML VIAL ONE (10:35)
[2017-02-14] MEDS ORDERED: SODIUM CHLORIDE FLUSH 0.9% 10 ML SYRINGE IVP PRN (11:26)
[2017-02-14] MEDS ORDERED: ACETAMINOPHEN 325 MG TABLET PO PRN (11:26)
[2017-02-14] MEDS ORDERED: ZOLPIDEM 5 MG TABLET PO PRN (11:26)
[2017-02-14] MEDS ORDERED: POLYETHYLENE GLYCOL 3350 17 GM PACKET PO PRN (13:41)
[2017-02-14] MEDS: SODIUM CHLORIDE FLUSH 0.9% 10 ML SYRINGE IVP SCH ×2 (13:52→14:46)
[2017-02-14] MEDS: FUROSEMIDE 40 MG/4 ML VIAL IVP SCH (14:46)
[2017-02-14] MEDS: hydrALAZINE 25 MG TABLET PO SCH ×2 (16:28→21:07)
--- NOTE | 2017-02-14 17:50 | HISTORY & PHYSICAL EXAMINATION ---
DATE OF ADMISSION: 02/14/2017 HISTORY OF PRESENT ILLNESS: This is an 81-year-old white female with a history of chronic renal insufficiency, followed by a unix developer, a history of hypertension, and possibly newly diagnosed Alzheimer's by virtue of occasional loss of words. The patient states she remembers having a stress test many years ago for an unknown reason. She has never had a coronary angiogram. The patient recently had many changes in her medications done for blood pressure control and hyperkalemia, and states that over this past 1 week, she started to retain fluid in the form of leg edema: 1 week ago, her Lasix was discontinued for renal protection, hydralazine 50 b.i.d. was increased to 50 q.i.d., nifedipine 30 mg p.o. daily was started, and Florinef 0.1 mg 2 tablets p.o. daily was started; after the fluid retention, her nifedipine was stopped, and her Lasix was resumed only 2 or 3 days ago, but the leg edema continued. The patient presents with slowly worsening dyspnea on exertion, which she would only notice nocturnally when she would get up from bed to urinate, but she became extremely orthopneic over the last 2 nights with PND. She also describes some kind of chest discomfort anteriorly to the left of her sternum, which would be worse when she was short of breath. There were no exertional daytime anginal symptoms or shortness of breath with activities of daily living. She was compliant with all of her medications and all of these changes as above. Her also gives me part of the history with these details. MEDICATIONS: At home most recently were: 1. Lasix 40 mg p.o. daily. 2. Tylenol p.r.n. pain. 3. MiraLax 17 grams p.o. daily. 4. Multivitamin 1 daily. 5. Atorvastatin 80 mg p.o. at bedtime. 6. Baby aspirin daily. 7. Florinef 0.2 mg p.o. daily. 8. Hydralazine 50 mg p.o. q.i.d. 9. Gabapentin 600 mg p.o. b.i.d. 10. Cymbalta 20 mg p.o. daily. 11. Cardura 4 mg p.o. b.i.d. 12. Allopurinol 100 mg half a tablet p.o. daily. ALLERGIES: 1. AMOXICILLIN. 2. NIACIN. 3. NIFEDIPINE (EDEMA). 4. POTASSIUM (UNKNOWN ALLERGY). FAMILY HISTORY: Negative for cardiac disease or diabetes. SOCIAL HISTORY: The patient is a nonsmoker, who quit smoking over 20 years ago. She drinks rare alcohol. Denies illicit drug use. The patient lives with her . REVIEW OF SYSTEMS: The reports that the patient has had a "loss for words," for which she has started to see a neurologist, and various testing has shown possible early Alzheimer's. The patient is not on treatment for this yet. A CT scan of the head was done in November of 2016, and this actually shows multiple areas of possible ischemic infarcts. The patient denies any recent travel, diarrhea, fever, chills, cough, or sputum production. She has never had angina before these last 2 or 3 days. The patient has received Procrit in the past, ordered by her unix developer when the hemoglobin would indicate its use. Most recently, however, there was no Procrit, but a blood transfusion which was approximately 2 weeks ago. The rest of the comprehensive review of systems is negative except for as above. PHYSICAL EXAMINATION: GENERAL: Reveals a white female in no distress, in bed with the head of the bed elevated. VITAL SIGNS: Blood pressure on presentation was 208/58 and Most recently 214/ 71. Heart rate is 68 and sinus rhythm. She is afebrile. HEENT: Unremarkable. Her oral mucosa is moist. NECK: Shows no JVD in an 80-degree upright position. There are no carotid bruits. LUNGS: Bibasilar crackles. HEART: Sounds are distant. There is no audible murmur. ABDOMEN: Soft. Positive bowel sounds. Nontender. No bruit. EXTREMITIES: Show 2+ edema bilaterally to the knees. There is no clubbing or cyanosis. NEUROLOGIC: Intact. There was no speech hesitation or loss of words. LABORATORY DATA: Sodium 141, potassium 3.8, BUN 38, creatinine 1.7, which is her baseline. Normal liver tests. Troponin not detected at less than 0.04. BNP 400. Lipase normal. No INR was done. White blood count 4.3, hemoglobin 10.7, with a normal MCV. RDW 17.9. Chest x-ray: Mild CHF. EKG: Normal sinus rhythm, poor R-wave progression, no acute changes. IMPRESSION/DIAGNOSES: 1. Congestive heart failure, new onset. 2. Chest pain, new onset 3. Leg edema, which could be cor pulmonale versus left heart failure versus continued side effect from recent nifedipine use versus edema from renal failure (her GFR is not severely depressed, though). 4. Hypertension, poorly controlled. I do not have in records whether she had an evaluation for renal artery stenosis or mineralocorticoid or adrenocorticoid secreting tumors. 5. Possible early dementia. 6. CKD PLAN: Admit the patient to telemetry to rule out dysrhythmia as the cause of her symptoms. Cycle troponins to rule out IN. Obtain an echo to evaluate LV and RV contractility and PA pressure. Start the patient on IV diuretics. Stop the Florinef, which causes sodium retention and thereby fluid retention. Stop the nifedipine (continue with it's elimination). Continue with use of her hydralazine, Cardura, and Lasix for blood pressure control. Continue with baby aspirin. Nitrates will also be used for both blood pressure control and anginal treatment. If her echo and isoenzymes are negative, then proceed to a stress test to rule out cardiac ischemia as the cause for the angina and CHF. 17:9:00 JOB #: [id number] EXT JOB #:[id number] CARLOS
[2017-02-14] MEDS: NITROGLYCERIN 2% PASTE TOP SCH (18:35)
[2017-02-14] MEDS ORDERED: hydrALAZINE 25 MG TABLET PO SCH (21:00)
[2017-02-14] MEDS ORDERED: GABAPENTIN 400 MG CAPSULE PO SCH (21:00)
[2017-02-14] MEDS: GABAPENTIN 300 MG CAPSULE PO SCH (21:06)
[2017-02-14] MEDS: DOCUSATE SODIUM 100 MG CAPSULE PO SCH (21:06)
[2017-02-14] MEDS: ATORVASTATIN 40 MG TABLET PO SCH (21:06)
[2017-02-14] MEDS: HEPARIN 5,000 UNIT/ML VIAL SUBQ SCH (21:07)
[2017-02-15] MEDS: NITROGLYCERIN 2% PASTE TOP SCH ×4 (00:52→18:56)
[2017-02-15 04:44] LABS: BASOPHILS % (AUTO) 0.6 %; EOSINOPHILS # (AUTO) 0.1 10^3/uL (0.0-0.7); EOSINOPHILS % (AUTO) 3.9 %; HCT - HEMATOCRIT 28.3 % (37.0-47.0); HGB - HEMOGLOBIN 9.5 g/dL (12.0-16.0); LYMPHOCYTES # (AUTO) 0.9 10^3/uL (1.5-3.5); LYMPHOCYTES % (AUTO) 27.6 %; MEAN CORPUSCULAR HEMOGLOBIN 31.2 pg (27.0-31.0); MEAN CORPUSCULAR HGB CONC 33.4 g/dL (32.0-36.0); MEAN CORPUSCULAR VOLUME 93.3 fL (81.0-99.0); MEAN PLATELET VOLUME 8.5 fL (7.9-10.8); MONOCYTES # (AUTO) 0.4 10^3/uL (0.0-1.0); MONOCYTES % (AUTO) 11.9 %; NEUTROPHILS # (AUTO) 1.9 10^3/uL (1.5-6.6); NUCLEATED RED BLOOD CELLS AUTO 0.1 /100WBC; RED BLOOD COUNT 3.03 10^6/uL (4.20-5.40); RED CELL DISTRIBUTION WIDTH 17.6 % (12.0-15.0); UNCORRECTED WHITE BLOOD COUNT 3.4 x10^3/uL; WHITE BLOOD COUNT 3.4 x10^3/uL (4.8-10.8)
[2017-02-15 04:58] LABS: CALCIUM 8.7 mg/dL (8.5-10.3); CREATININE 1.9 mg/dL (0.4-1.0); MAGNESIUM 1.7 mg/dL (1.7-2.8); POTASSIUM 3.5 mmol/L (3.5-5.0)
[2017-02-15] MEDS: FUROSEMIDE 40 MG/4 ML VIAL IVP SCH ×2 (06:27→14:28)
[2017-02-15] MEDS: SODIUM CHLORIDE FLUSH 0.9% 10 ML SYRINGE IVP SCH ×3 (06:27→20:57)
[2017-02-15] MEDS: MULTIVITAMIN TABLET PO SCH (08:59)
[2017-02-15] MEDS: hydrALAZINE 25 MG TABLET PO SCH ×4 (08:59→20:57)
[2017-02-15] MEDS: GABAPENTIN 300 MG CAPSULE PO SCH ×2 (08:59→20:56)
[2017-02-15] MEDS: POLYETHYLENE GLYCOL 3350 17 GM PACKET PO SCH (08:59)
[2017-02-15] MEDS: DOXAZOSIN 4 MG TABLET PO SCH ×2 (09:00→20:56)
[2017-02-15] MEDS: DULoxetine 20 MG CAPSULE PO SCH (09:00)
[2017-02-15] MEDS: ALLOPURINOL 100 MG TABLET PO SCH (09:00)
[2017-02-15] MEDS: FAMOTIDINE 20 MG TABLET PO SCH (09:00)
[2017-02-15] MEDS: ASPIRIN CHEW 81 MG TABLET PO SCH (09:00)
[2017-02-15] MEDS: HEPARIN 5,000 UNIT/ML VIAL SUBQ SCH ×2 (09:01→20:57)
[2017-02-15] MEDS ORDERED: REGADENOSON 0.4 MG/5 ML SYRINGE IVP ONE (15:03)
--- NOTE | 2017-02-15 16:22 | Nuclear Medicine Report ---
EXAM: SINGLE-ISOTOPE PHARMACOLOGICAL STRESS TEST WITH REGADENOSON. SINGLE-ISOTOPE AND ONE-DAY REST/STRESS M YOCARDIAL PERFUSION SCANS WITH TOMOGRAPHIC IMAGING, QUANTITATIVE ANALYSIS, WALL MOTION ANALYSIS AND C ALCULATION OF EJECTION FRACTION. EXAM DATE: 02/15/2017 10:26 AM. CLINICAL HISTORY: Chest pain. COMPARISON: None available. TECHNIQUE: After the intravenous administration of 9.7 mCi of Tc-99m sestamibi, a rest myocardial perfusion scan was done with tomography. Motion correction was applied when appropriate. A pharmacological stress was performed with the infusion of 0.4 mg regadenoson per protocol. Accordin g to protocol, 39.6 mCi of Tc-99m sestamibi was injected for stress myocardial perfusion scan. Motion correction was applied when appropriate. Gated tomographic images were obtained for wall motion analysis and computation of left ventricular e jection fraction. FINDINGS: No convincing fixed or reversible perfusion defects. Wall motion analysis demonstrates no focal wall motion abnormality The left ventricular end-diastolic volume is 107 cc. The left ventricular end-systolic volume is 28 c c. The left ventricular ejection fraction is calculated to be 74%. IMPRESSION: 1. No scintigraphic findings to indicate myocardial ischemia. Negative for infarct. 2. Normal left ventricular ejection fraction of 74%. 3. Normal segmental and global wall motion. 4. Normal left ventricular cavity size, no change with stress. [facility] The call report notification system was initiated by Dr. Hubert North at 16:12 hrs on 02/15/17. The above findings were discussed with Dr. Bright by Dr. Hubert North at 16:18 hrs on 02/15/17. Referring Provider Line: [phone] SITE ID: [id number]
--- NOTE | 2017-02-15 17:06 | PROVIDER PROGRESS NOTE ---
Assessment/Plan - Problem List (1) CHF (congestive heart failure) Qualifiers: Congestive heart failure type: diastolic Congestive heart failure chronicity: unspecified congestive heart failure chronicity Qualified Code(s) : I50.30 - Unspecified diastolic (congestive) heart failure Assessment/Plan: Edema and plmonary edema decreasing. Continue present care. Will assess oximetry with ambulation on R.A. No Flurinef should be used. I discussed this with her PCP, Nelsy Carrington today. (2) Chest pain Qualifiers: Chest pain type: unspecified Qualified Code(s): R07.9 - Chest pain, unspecified Assessment/Plan: Pharmaceutical stress test was neg for ischemia or scar by scan, but EKG had changes which would therefore be consistent with LVH strain pattern. Continue with diuresis and watch for excessive tachycardia as up and about. (3) Renal insufficiency Assessment/Plan: Abnormal creat but stable (4) HTN (hypertension) Assessment/Plan: Present increased meds are controlling BP. Will assess with increasing activity. Probable DCh tomorrow. (5) Alzheimer's dementia Assessment/Plan: This was confirmed to me in discussion with her PCP, Nelsy Carrington. No Aricept being used as of yet, for unknown reason. (6) Anemia of renal disease Assessment/Plan: Hgb stable. - Current Meds Current Meds: Current Medications Generic Name Dose Route Start Last Admin Trade Name Freq PRN Reason Stop Dose Admin Allopurinol 100 mg 02/15/17 09:00 02/15/17 09:00 Zyloprim PO 100 mg DAILY ASHLY Administration Aspirin 81 mg 02/15/17 09:00 02/15/17 09:00 [facility] [place] Aspirin PO 81 mg DAILY ASHLY Administration Atorvastatin Calcium 80 mg 02/14/17 21:00 02/14/17 21:06 Lipitor PO 80 mg QPM ASHLY Administration Docusate Sodium 100 mg 02/14/17 21:00 02/14/17 21:06 Colace 100mg Capsule PO 100 mg QPM ASHLY Administration Doxazosin Mesylate 4 mg 02/15/17 09:00 02/15/17 09:00 Cardura PO 4 mg BID ASHLY Administration Duloxetine HCl 20 mg 02/15/17 09:00 02/15/17 09:00 Cymbalta PO 20 mg DAILY ASHLY Administration Famotidine 20 mg 02/15/17 09:00 02/15/17 09:00 Pepcid PO 20 mg DAILY ASHLY Administration Furosemide 40 mg 02/14/17 15:00 02/15/17 14:28 Lasix Inj 40 Mg Vial IVP 40 mg BIDDIURETIC ASHLY Administration Gabapentin 600 mg 02/14/17 21:00 02/15/17 08:59 Neurontin PO 600 mg BID ASHLY Administration Heparin Sodium (Porcine) 5,000 unit 02/14/17 21:00 02/15/17 09:01 SUBQ 5,000 unit BID ASHLY Administration Hydralazine HCl 50 mg 02/14/17 17:00 02/15/17 16:59 Apresoline PO 50 mg QID ASHLY Administration Multivitamins 1 tab 02/15/17 08:00 02/15/17 08:59 Theragran PO 1 tab DAILYWM ASHLY Administration Nitroglycerin 1 inch 02/14/17 19:00 02/15/17 13:18 Nitro-Bid (Pkt) TOP 1 inch Q6H ASHLY Administration Polyethylene Glycol 17 gm 02/15/17 09:00 02/15/17 08:59 Miralax PO 17 gm DAILY ASHLY Administration Sodium Chloride 10 ml 02/14/17 11:26 02/14/17 21:07 Normal Saline Flush 0.9% IVP 10 ml PRN PRN Administration NEEDED PER PROVIDER ORDERS Sodium Chloride 10 ml 02/14/17 14:00 02/15/17 14:28 Normal Saline Flush 0.9% IVP 10 ml Q8HR ASHLY Administration - Lab Result Fish Bone Diagrams: 02/15/17 04:20 02/15/17 04:20 - Additional Planning My Orders: My Active Orders 02/14/17 17:00 hydrALAZINE [Apresoline] 50 mg PO QID 02/14/17 19:00 Nitroglycerin 2% Paste (Pkt) [Nitro-Bid (Pkt)] 1 inch TOP Q6H 02/14/17 21:00 Atorvastatin [Lipitor] 80 mg PO QPM Docusate Sodium 100Mg Capsule [Colace 100Mg Capsule] 100 mg PO QPM Gabapentin [Neurontin] 600 mg PO BID 02/15/17 08:00 Exercise Treadmill Test [XR] Routine Multivitamin [Theragran] 1 tab PO DAILYWM 02/15/17 09:00 Allopurinol [Zyloprim] 100 mg PO DAILY Aspirin Chewable [[place] Aspirin] 81 mg PO DAILY DULoxetine [Cymbalta] 20 mg PO DAILY Doxazosin [Cardura] 4 mg PO BID 02/15/17 13:02 Miscellaenous Nursing Order [RC] QSHIFT 02/16/17 09:00 Oxygen Desat. Study w/Exercise [RC] .ONCE Subjective - Subjective Patient Reports: Feeling Better, Resting Comfortably Nursing Reports: Other (Able to lie supine without SOB) Objective Vital Signs: Vital Signs - 24 hr 02/14/17 02/14/17 02/14/17 18:04 19:01 19:39 Temperature 36.7 C Heart Rate [ 69 Brachial] Respiratory 20 Rate Blood Pressure 206/58 H 186/56 H 187/61 H [Right Brachial artery] O2 Saturation 96 02/14/17 02/15/17 02/15/17 21:00 00:45 04:40 Temperature 37.2 C 37.1 C Heart Rate [ 73 68 75 Brachial] Respiratory 16 16 Rate Blood Pressure 199/64 H 198/63 H 195/63 H [Right Brachial artery] O2 Saturation 96 93 02/15/17 02/15/17 02/15/17 06:35 07:01 08:39 Temperature 37.6 C H Heart Rate [ 72 94 74 Brachial] Respiratory 20 20 Rate Blood Pressure 211/63 H 205/66 H 182/59 H [Right Brachial artery] O2 Saturation 92 95 02/15/17 02/15/17 13:00 15:50 Temperature 36.9 C 37.1 C Heart Rate [ 79 Brachial] Respiratory 20 20 Rate Blood Pressure 173/61 H 187/58 H [Right Brachial artery] O2 Saturation 95 95 Oxygen O2 Source Room air I&O (Last 24 Hrs): Intake and Output Totals x24h 02/13/17 02/14/17 02/15/17 23:59 23:59 23:59 Intake Total 540 1200 Output Total 500 500 Balance 40 700 General: Alert HEENT: Mucous membr. moist/pink Neck: No JVD Neuro: Alert Cardiovascular: Regular rate, No murmurs Respiratory: No respiratory distress Abdomen: Soft Extremities: Other (1+ edema (decreased)) - Results Results: Laboratory Results WBC 3.4 x10^3/uL (4.8-10.8) L 02/15/17 04:20 RBC 3.03 10^6/uL (4.20-5.40) L 02/15/17 04:20 Hgb 9.5 g/dL (12.0-16.0) L 02/15/17 04:20 Hct 28.3 % (37.0-47.0) L 02/15/17 04:20 MCV 93.3 fL (81.0-99.0) 02/15/17 04:20 MCH 31.2 pg (27.0-31.0) H 02/15/17 04:20 MCHC 33.4 g/dL (32.0-36.0) 02/15/17 04:20 RDW 17.6 % (12.0-15.0) H 02/15/17 04:20 Plt Count 103 10^3/uL (130-450) L 02/15/17 04:20 MPV 8.5 fL (7.9-10.8) 02/15/17 04:20 Neut # 1.9 10^3/uL (1.5-6.6) 02/15/17 04:20 Lymph # 0.9 10^3/uL (1.5-3.5) L 02/15/17 04:20 Burt # 0.4 10^3/uL (0.0-1.0) 02/15/17 04:20 Eos # 0.1 10^3/uL (0.0-0.7) 02/15/17 04:20 Baso # 0.0 10^3/uL (0.0-0.1) 02/15/17 04:20 Absolute Nucleated RBC 0.00 x10^3/uL 02/15/17 04:20 Nucleated RBC % 0.1 /100WBC 02/15/17 04:20 Manual Slide Review Indicated 02/14/17 09:48 Platelet Estimate DECREASED (<130,000) (NORMAL) 02/14/17 09:48 Platelet Morphology NORMAL APPEARANCE (NORMAL) 02/14/17 09:48 RBC Morph Micro Appear NORMAL APPEARANCE (NORMAL) 02/14/17 09:48 Sodium 140 mmol/L (135-145) 02/15/17 04:20 Potassium 3.5 mmol/L (3.5-5.0) 02/15/17 04:20 Chloride 108 mmol/L (101-111) 02/15/17 04:20 Carbon Dioxide 25 mmol/L (21-32) 02/15/17 04:20 Anion Gap 7.0 (6-13) 02/15/17 04:20 BUN 41 mg/dL (6-20) H 02/15/17 04:20 Creatinine 1.9 mg/dL (0.4-1.0) H 02/15/17 04:20 Estimated GFR (MDRD) 25 (>89) L 02/15/17 04:20 Glucose 103 mg/dL (70-100) H 02/15/17 04:20 Calcium 8.7 mg/dL (8.5-10.3) 02/15/17 04:20 Magnesium 1.7 mg/dL (1.7-2.8) 02/15/17 04:20 Total Bilirubin 0.7 mg/dL (0.2-1.0) 02/14/17 09:48 AST 28 IU/L (10-42) 02/14/17 09:48 ALT 23 IU/L (10-60) 02/14/17 09:48 Alkaline Phosphatase 88 IU/L (42-121) 02/14/17 09:48 Troponin I < 0.04 ng/mL (<0.49) 02/14/17 21:07 B-Natriuretic Peptide 370 pg/mL (5-100) H 02/15/17 04:20 Total Protein 5.7 g/dL (6.7-8.2) L 02/14/17 09:48 Albumin 3.2 g/dL (3.2-5.5) 02/14/17 09:48 Globulin 2.5 g/dL (2.1-4.2) 02/14/17 09:48 Albumin/Globulin Ratio 1.3 (1.0-2.2) 02/14/17 09:48 Lipase 35 U/L (22-51) 02/14/17 09:48 - Procedures Procedures: Procedures CLOSED ENDOSCOPIC BIOPSY OF LARGE INTESTINE (10/24/14) ENDOSC POLYPECTOMY OF LG INTEST (10/24/14) INSPECTION OF LOWER INTESTINAL TRACT, ENDO (06/26/15) INSPECTION OF UPPER INTESTINAL TRACT, ENDO (06/26/15)
--- NOTE | 2017-02-15 17:27 | CARDIAC PROCEDURE NOTE ---
DATE OF SERVICE: 02/15/2017 00:00:00 After signing informed consent, the patient underwent a Lexiscan nuclear stress test using standard p rocedure. Resting heart rate 65. Resting blood pressure 142/64. Peak heart rate 95. Peak blood pressure 170/50. Resting EKG: Normal sinus rhythm, first degree AV block, otherwise within normal limits. Peak EKG: Normal sinus rhythm with first degree AV block, [address] depressions in leads V4 through V6 with biphasic T-waves in the same leads and 0.[address] depressions in the inferior leads. The patient developed a headache, shortness of breath, and her typical chest pressure which she rated 8/10 at peak. These symptoms resolved spontaneously. IMPRESSION: Abnormal electrocardiogram changes during pharmaceutical stress test. Nuclear images reported separately. JOB #: [id number] EXT JOB #:[id number]
[2017-02-15] MEDS: ATORVASTATIN 40 MG TABLET PO SCH (20:56)
[2017-02-15] MEDS: DOCUSATE SODIUM 100 MG CAPSULE PO SCH (20:57)
[2017-02-15] MEDS ORDERED: LABETALOL 5 MG/1 ML 20 ML MDV IV ONE (22:11)
[2017-02-15] MEDS: NITROGLYCERIN 50 MG/250 ML 50 MG/250 ML BOTTLE IV SCH (22:54)
[2017-02-16] MEDS: FUROSEMIDE 40 MG/4 ML VIAL IVP SCH ×2 (06:32→14:21)
[2017-02-16] MEDS: SODIUM CHLORIDE FLUSH 0.9% 10 ML SYRINGE IVP SCH ×3 (06:32→20:46)
[2017-02-16] MEDS: POLYETHYLENE GLYCOL 3350 17 GM PACKET PO SCH (08:28)
[2017-02-16] MEDS: ASPIRIN CHEW 81 MG TABLET PO SCH (08:28)
[2017-02-16] MEDS: hydrALAZINE 25 MG TABLET PO SCH ×4 (08:28→20:13)
[2017-02-16] MEDS: DULoxetine 20 MG CAPSULE PO SCH (08:28)
[2017-02-16] MEDS: MULTIVITAMIN TABLET PO SCH (08:28)
[2017-02-16] MEDS: ALLOPURINOL 100 MG TABLET PO SCH (08:29)
[2017-02-16] MEDS: FAMOTIDINE 20 MG TABLET PO SCH (08:29)
[2017-02-16] MEDS: DOXAZOSIN 4 MG TABLET PO SCH ×2 (08:29→20:12)
[2017-02-16] MEDS: GABAPENTIN 300 MG CAPSULE PO SCH ×2 (08:29→20:12)
[2017-02-16] MEDS: HEPARIN 5,000 UNIT/ML VIAL SUBQ SCH ×2 (08:36→20:12)
[2017-02-16 09:24] LABS: BASOPHILS % (AUTO) 0.8 %; EOSINOPHILS # (AUTO) 0.1 10^3/uL (0.0-0.7); EOSINOPHILS % (AUTO) 3.9 %; HCT - HEMATOCRIT 25.8 % (37.0-47.0); HGB - HEMOGLOBIN 8.6 g/dL (12.0-16.0); LYMPHOCYTES # (AUTO) 0.7 10^3/uL (1.5-3.5); LYMPHOCYTES % (AUTO) 23.6 %; MEAN CORPUSCULAR HEMOGLOBIN 30.4 pg (27.0-31.0); MEAN CORPUSCULAR HGB CONC 33.3 g/dL (32.0-36.0); MEAN CORPUSCULAR VOLUME 91.6 fL (81.0-99.0); MEAN PLATELET VOLUME 8.5 fL (7.9-10.8); MONOCYTES # (AUTO) 0.3 10^3/uL (0.0-1.0); MONOCYTES % (AUTO) 9.7 %; RED BLOOD COUNT 2.82 10^6/uL (4.20-5.40); RED CELL DISTRIBUTION WIDTH 17.8 % (12.0-15.0); UNCORRECTED WHITE BLOOD COUNT 3.2 x10^3/uL; WHITE BLOOD COUNT 3.2 x10^3/uL (4.8-10.8)
[2017-02-16 09:32] LABS: CALCIUM 8.8 mg/dL (8.5-10.3); MAGNESIUM 1.7 mg/dL (1.7-2.8); POTASSIUM 3.8 mmol/L (3.5-5.0)
--- NOTE | 2017-02-16 15:30 | PROVIDER PROGRESS NOTE ---
Assessment/Plan - Problem List (1) CHF (congestive heart failure) Qualifiers: Congestive heart failure type: diastolic Congestive heart failure chronicity: unspecified congestive heart failure chronicity Qualified Code(s) : I50.30 - Unspecified diastolic (congestive) heart failure Assessment/Plan: Will change iv Lasix from 40 bid to Lasix 80 mg iv daily Continue to monitor (2) Chest pain Qualifiers: Chest pain type: unspecified Qualified Code(s): R07.9 - Chest pain, unspecified Assessment/Plan: Resolved since no longer fluid overloaded (3) Renal insufficiency Assessment/Plan: Elevated creat but stable (4) HTN (hypertension) Assessment/Plan: Pt having spikes of uncontrolled BP despite escalating doses of antihypertensives. Will do Abd arterial Doppler to R/O renal artery stenosis. Will check plasma Renin activity and a 24 hour urine collection for VMA and metanephrines to R/O pheochromocytoma. (5) Alzheimer's dementia Assessment/Plan: Stable and mildly demented - Current Meds Current Meds: Current Medications Generic Name Dose Route Start Last Admin Trade Name Freq PRN Reason Stop Dose Admin Allopurinol 100 mg 02/15/17 09:00 02/16/17 08:29 Zyloprim PO 100 mg DAILY ASHLY Administration Aspirin 81 mg 02/15/17 09:00 02/16/17 08:28 [facility] [place] Aspirin PO 81 mg DAILY ASHLY Administration Atorvastatin Calcium 80 mg 02/14/17 21:00 02/15/17 20:56 Lipitor PO 80 mg QPM ASHLY Administration Docusate Sodium 100 mg 02/14/17 21:00 02/15/17 20:57 Colace 100mg Capsule PO 100 mg QPM ASHLY Administration Doxazosin Mesylate 4 mg 02/15/17 09:00 02/16/17 08:29 Cardura PO 4 mg BID ASHLY Administration Duloxetine HCl 20 mg 02/15/17 09:00 02/16/17 08:28 Cymbalta PO 20 mg DAILY ASHLY Administration Famotidine 20 mg 02/15/17 09:00 02/16/17 08:29 Pepcid PO 20 mg DAILY ASHLY Administration Gabapentin 600 mg 02/14/17 21:00 02/16/17 08:29 Neurontin PO 600 mg BID ASHLY Administration Heparin Sodium (Porcine) 5,000 unit 02/14/17 21:00 02/16/17 08:36 SUBQ 5,000 unit BID ASHLY Administration Hydralazine HCl 50 mg 02/14/17 17:00 02/16/17 14:13 Apresoline PO 50 mg QID ASHLY Administration Nitroglycerin 50 mg in 250 mls @ 1.5 mls/hr 02/15/17 23:00 02/16/17 14:00 Nitroglycerin IV 30 mcg/min .Q72H ASHLY 9 mls/hr Protocol Titration 5 MCG/MIN Multivitamins 1 tab 02/15/17 08:00 02/16/17 08:28 Theragran PO 1 tab DAILYWM ASHLY Administration Polyethylene Glycol 17 gm 02/15/17 09:00 02/16/17 08:28 Miralax PO 17 gm DAILY ASHLY Administration Sodium Chloride 10 ml 02/14/17 11:26 02/14/17 21:07 Normal Saline Flush 0.9% IVP 10 ml PRN PRN Administration NEEDED PER PROVIDER ORDERS Sodium Chloride 10 ml 02/14/17 14:00 02/16/17 14:13 Normal Saline Flush 0.9% IVP 10 ml Q8HR ASHLY Administration - Lab Result Fish Bone Diagrams: 02/16/17 09:16 02/16/17 09:16 - Additional Planning My Orders: My Active Orders 02/16/17 METANEPHRINES FRACTION 24HR UR [REFLAB] Routine 02/16/17 09:00 Oxygen Desat. Study w/Exercise [RC] .ONCE 02/16/17 09:16 ALDOSTERONE/RENIN ACTIVITY [REFLAB] Routine 02/16/17 13:00 Arterial Visceral Complete [US] Routine 02/16/17 15:26 Miscellaenous Nursing Order [RC] QSHIFT 02/16/17 16:00 cloNIDine 0.1 MG PATCH [[id number]] 1 patch TOP Q7D 02/17/17 05:00 BMP - BASIC METABOLIC PANEL [CHEM] DAILYLAB CBC - COMP BLD CT W/AUTO DIFF [HEME] DAILYLAB MAGNESIUM [CHEM] DAILYLAB 02/17/17 09:00 FUROSEMIDE INJ 40mg VIAL [LASIX INJ 40 mg VIAL] 80 mg IVP DAILY Subjective - Subjective Patient Reports: Feeling Better, Resting Comfortably Nursing Reports: Other (Had a headache when BP was elevated, systolic >200, and Pt was started on iv NTG by [facility]) Objective Vital Signs: Vital Signs - 24 hr 02/15/17 02/15/17 02/15/17 15:50 20:49 22:00 Temperature 37.1 C 37.1 C Heart Rate [ 78 Brachial] Respiratory 20 19 Rate Blood Pressure 187/58 H 227/60 H 212/68 H [Right Brachial artery] O2 Saturation 95 94 02/15/17 02/15/17 02/15/17 22:03 23:00 23:30 Temperature Heart Rate [ 65 66 Brachial] Respiratory 11 L 16 Rate Blood Pressure 212/68 H 183/51 H 175/52 H [Right Brachial artery] O2 Saturation 95 91 L 02/16/17 02/16/17 02/16/17 00:45 01:15 01:30 Temperature Heart Rate [ 68 68 Brachial] Respiratory 14 16 Rate Blood Pressure 151/50 H 152/51 H 166/49 H [Right Brachial artery] O2 Saturation 97 98 02/16/17 02/16/17 02/16/17 01:45 02:00 02:15 Temperature Heart Rate [ 62 Brachial] Respiratory 15 15 Rate Blood Pressure 177/53 H 172/56 H 163/50 H [Right Brachial artery] O2 Saturation 97 100 02/16/17 02/16/17 02/16/17 02:30 02:45 03:00 Temperature Heart Rate [ 61 66 66 Brachial] Respiratory 14 16 16 Rate Blood Pressure 155/51 H 165/52 H 165/50 H [Right Brachial artery] O2 Saturation 100 100 100 02/16/17 02/16/17 02/16/17 03:15 03:45 04:00 Temperature Heart Rate [ 67 67 67 Brachial] Respiratory 14 15 14 Rate Blood Pressure 166/53 H 162/52 H 150/50 H [Right Brachial artery] O2 Saturation 99 98 97 02/16/17 02/16/17 02/16/17 04:15 04:30 04:47 Temperature 36.6 C Heart Rate [ 66 68 85 Brachial] Respiratory 13 23 20 Rate Blood Pressure 160/50 H 163/49 H 170/45 H [Right Brachial artery] O2 Saturation 97 97 96 02/16/17 02/16/17 02/16/17 05:00 05:15 05:30 Temperature Heart Rate [ 66 66 66 Brachial] Respiratory 14 14 17 Rate Blood Pressure 161/52 H 159/50 H 140/54 H [Right Brachial artery] O2 Saturation 98 99 98 02/16/17 02/16/17 02/16/17 05:45 06:00 06:15 Temperature Heart Rate [ 64 64 66 Brachial] Respiratory 15 25 H 24 Rate Blood Pressure 154/49 H 149/50 H 162/51 H [Right Brachial artery] O2 Saturation 98 99 98 02/16/17 02/16/17 02/16/17 06:30 06:45 07:00 Temperature Heart Rate [ 73 64 64 Brachial] Respiratory 13 24 13 Rate Blood Pressure 158/52 H 164/53 H 156/53 H [Right Brachial artery] O2 Saturation 99 98 98 02/16/17 02/16/17 02/16/17 07:30 08:00 09:00 Temperature 98.3 C H Heart Rate [ 66 69 71 Brachial] Respiratory 15 18 20 Rate Blood Pressure 161/52 H 164/57 H 142/43 H [Right Brachial artery] O2 Saturation 2 L 96 92 02/16/17 02/16/17 02/16/17 09:10 09:15 09:25 Temperature Heart Rate [ 68 68 67 Brachial] Respiratory 16 22 14 Rate Blood Pressure 137/54 H 146/45 H 150/45 H [Right Brachial artery] O2 Saturation 92 93 96 02/16/17 02/16/17 02/16/17 09:30 10:00 10:15 Temperature 98.2 C H Heart Rate [ 67 71 67 Brachial] Respiratory 18 18 20 Rate Blood Pressure 148/47 H 145/45 H 150/47 H [Right Brachial artery] O2 Saturation 94 93 93 02/16/17 02/16/17 02/16/17 10:30 11:00 12:00 Temperature 36.8 C Heart Rate [ 66 61 71 Brachial] Respiratory 16 15 16 Rate Blood Pressure 153/50 H 159/51 H 154/49 H [Right Brachial artery] O2 Saturation 95 93 93 02/16/17 02/16/17 02/16/17 12:30 13:00 13:30 Temperature Heart Rate [ 67 66 65 Brachial] Respiratory 17 16 15 Rate Blood Pressure 152/50 H 146/46 H 173/58 H [Right Brachial artery] O2 Saturation 92 93 93 02/16/17 02/16/17 02/16/17 14:00 14:30 14:59 Temperature 36.7 C Heart Rate [ 68 73 70 Brachial] Respiratory 16 20 24 Rate Blood Pressure 176/59 H 182/56 H 183/56 H [Right Brachial artery] O2 Saturation 92 93 92 Oxygen O2 Source Room air I&O (Last 24 Hrs): Intake and Output Totals x24h 02/14/17 02/15/17 02/16/17 23:59 23:59 23:59 Intake Total 540 1401.85 265.950 Output Total 500 500 650 Balance 40 901.85 -384.050 General: Alert HEENT: Mucous membr. moist/pink Neck: Supple, No JVD Cardiovascular: Regular rate, No murmurs Respiratory: No respiratory distress Abdomen: Normal bowel sounds, Soft Extremities: Other (1+ edema) - Results Results: Laboratory Results WBC 3.2 x10^3/uL (4.8-10.8) L 02/16/17 09:16 RBC 2.82 10^6/uL (4.20-5.40) L 02/16/17 09:16 Hgb 8.6 g/dL (12.0-16.0) L 02/16/17 09:16 Hct 25.8 % (37.0-47.0) L 02/16/17 09:16 MCV 91.6 fL (81.0-99.0) 02/16/17 09:16 MCH 30.4 pg (27.0-31.0) 02/16/17 09:16 MCHC 33.3 g/dL (32.0-36.0) 02/16/17 09:16 RDW 17.8 % (12.0-15.0) H 02/16/17 09:16 Plt Count 103 10^3/uL (130-450) L 02/16/17 09:16 MPV 8.5 fL (7.9-10.8) 02/16/17 09:16 Neut # 2.0 10^3/uL (1.5-6.6) 02/16/17 09:16 Lymph # 0.7 10^3/uL (1.5-3.5) L 02/16/17 09:16 Hunt # 0.3 10^3/uL (0.0-1.0) 02/16/17 09:16 Eos # 0.1 10^3/uL (0.0-0.7) 02/16/17 09:16 Baso # 0.0 10^3/uL (0.0-0.1) 02/16/17 09:16 Absolute Nucleated RBC 0.00 x10^3/uL 02/16/17 09:16 Nucleated RBC % 0.0 /100WBC 02/16/17 09:16 Manual Slide Review Indicated 02/14/17 09:48 Platelet Estimate DECREASED (<130,000) (NORMAL) 02/14/17 09:48 Platelet Morphology NORMAL APPEARANCE (NORMAL) 02/14/17 09:48 RBC Morph Micro Appear NORMAL APPEARANCE (NORMAL) 02/14/17 09:48 Sodium 141 mmol/L (135-145) 02/16/17 09:16 Potassium 3.8 mmol/L (3.5-5.0) 02/16/17 09:16 Chloride 106 mmol/L (101-111) 02/16/17 09:16 Carbon Dioxide 26 mmol/L (21-32) 02/16/17 09:16 Anion Gap 9.0 (6-13) 02/16/17 09:16 BUN 41 mg/dL (6-20) H 02/16/17 09:16 Creatinine 2.0 mg/dL (0.4-1.0) H 02/16/17 09:16 Estimated GFR (MDRD) 24 (>89) L 02/16/17 09:16 Glucose 183 mg/dL (70-100) H 02/16/17 09:16 Calcium 8.8 mg/dL (8.5-10.3) 02/16/17 09:16 Magnesium 1.7 mg/dL (1.7-2.8) 02/16/17 09:16 Total Bilirubin 0.7 mg/dL (0.2-1.0) 02/14/17 09:48 AST 28 IU/L (10-42) 02/14/17 09:48 ALT 23 IU/L (10-60) 02/14/17 09:48 Alkaline Phosphatase 88 IU/L (42-121) 02/14/17 09:48 Troponin I < 0.04 ng/mL (<0.49) 02/16/17 09:16 B-Natriuretic Peptide 370 pg/mL (5-100) H 02/15/17 04:20 Total Protein 5.7 g/dL (6.7-8.2) L 02/14/17 09:48 Albumin 3.2 g/dL (3.2-5.5) 02/14/17 09:48 Globulin 2.5 g/dL (2.1-4.2) 02/14/17 09:48 Albumin/Globulin Ratio 1.3 (1.0-2.2) 02/14/17 09:48 Lipase 35 U/L (22-51) 02/14/17 09:48 - Procedures Procedures: Procedures CLOSED ENDOSCOPIC BIOPSY OF LARGE INTESTINE (10/24/14) ENDOSC POLYPECTOMY OF LG INTEST (10/24/14) INSPECTION OF LOWER INTESTINAL TRACT, ENDO (06/26/15) INSPECTION OF UPPER INTESTINAL TRACT, ENDO (06/26/15)
[2017-02-16] MEDS ORDERED: cloNIDine 0.1 MG PATCH TOP SCH (16:00)
[2017-02-16] MEDS: DOCUSATE SODIUM 100 MG CAPSULE PO SCH (20:12)
[2017-02-16] MEDS: ATORVASTATIN 40 MG TABLET PO SCH (20:12)
--- NOTE | 2017-02-16 20:16 | Ultrasound Report ---
RENAL ARTERY DUPLEX: 02/16/2017 CLINICAL INDICATION: Hypertension. COMPARISON: Abdominal ultrasound 10/09/2007. TECHNIQUE: Real-time sonographic vascular imaging was performed by the audio visual aide through the renal arteries utilizing both color-flow and Doppler flow analysis. Multiple transportation services representative static images were saved for review. RT KIDNEY LT KIDNEY Size: 10.8 x 7.0 x 6.3 cm Size: 10.8 x 6.0 x 4.9 cm SEGMENTAL ARTERY SEGMENTAL ARTERY PSV RI PSV RI Upper Pole 20 0.78 Upper Pole 21 0.82 Mid Pole 38 0.88 Mid Pole 23 0.76 Lower Pole 30 0.86 Lower Pole 18 0.74 RIGHT RENAL ARTERY LEFT RENAL ARTERY PSV RA/AO PSV RA/AO Origin: --- --- Origin: --- --- Proximal: --- --- Proximal: --- --- Mid: --- --- Mid: --- --- Distal: 166 0.49 Distal: 74 0.31 PROX AORTA PSV: 237 cm/s RRV patent Yes LRV patent Yes CRITERIA FOR CLASSIFICATION OF RENAL ARTERY DISEASE BY DUPLEX SCANNING RENAL ARTERY DIAMETER REDUCTION RENAL ARTERY PSV RAR Normal < 180 cm/sec <3.5 < 60 % >180 cm/sec <3.5 < 60 % >180 cm/sec <3.5 Occlusion (100)% No signal No signal FINDINGS: Right: The right kidney measures 10.8 x 7.0 x 6.3 cm. No hydronephrosis is seen. Resistive indices are elevated, compatible with medical renal disease. The origin, proximal, and mid portions of the right renal artery could not be visualized, due to bowel gas. Velocity and ratio in the distal right renal artery are normal. The right renal vein is patent. Left: The left kidney measures 10.8 x 6.0 x 4.9 cm. There is a heterogeneous, vascular mass, measuring 3.2 x 3.1 x 2.7 cm, in the mid portion of the left kidney, new from previous ultrasound. No hydronephrosis is seen. Resistive indices are elevated, compatible with medical renal disease. The origin, proximal, and mid portions of the left renal artery could not be visualized, due to overlying bowel gas. Velocity and ratio in the distal left renal artery are normal. The left renal vein is patent. Incidental note is made of a small right pleural effusion. IMPRESSION: 1. NONVISUALIZATION OF THE MAJORITY OF BOTH RENAL ARTERIES, DUE TO OVERLYING BOWEL GAS. 2. HETEROGENEOUS, VASCULAR MASS IN THE MID LEFT KIDNEY, SUSPICIOUS FOR NEOPLASM. MTDD
[2017-02-16] MEDS: NITROGLYCERIN 50 MG/250 ML 50 MG/250 ML BOTTLE IV SCH (20:47)
[2017-02-17 05:22] LABS: BASOPHILS % (AUTO) 0.4 %; EOSINOPHILS # (AUTO) 0.1 10^3/uL (0.0-0.7); EOSINOPHILS % (AUTO) 3.6 %; HCT - HEMATOCRIT 26.7 % (37.0-47.0); HGB - HEMOGLOBIN 8.7 g/dL (12.0-16.0); LYMPHOCYTES % (AUTO) 28.3 %; MEAN CORPUSCULAR HEMOGLOBIN 30.5 pg (27.0-31.0); MEAN CORPUSCULAR HGB CONC 32.7 g/dL (32.0-36.0); MEAN CORPUSCULAR VOLUME 93.3 fL (81.0-99.0); MEAN PLATELET VOLUME 8.8 fL (7.9-10.8); MONOCYTES # (AUTO) 0.4 10^3/uL (0.0-1.0); MONOCYTES % (AUTO) 12.8 %; NEUTROPHILS # (AUTO) 1.9 10^3/uL (1.5-6.6); NEUTROPHILS % (AUTO) 54.9 %; RED BLOOD COUNT 2.86 10^6/uL (4.20-5.40); RED CELL DISTRIBUTION WIDTH 17.8 % (12.0-15.0); UNCORRECTED WHITE BLOOD COUNT 3.5 x10^3/uL; WHITE BLOOD COUNT 3.5 x10^3/uL (4.8-10.8)
[2017-02-17 05:30] LABS: CALCIUM 8.5 mg/dL (8.5-10.3); MAGNESIUM 1.9 mg/dL (1.7-2.8)
[2017-02-17] MEDS: SODIUM CHLORIDE FLUSH 0.9% 10 ML SYRINGE IVP SCH ×3 (06:51→20:17)
[2017-02-17] MEDS: ISOSORBIDE MONONITRATE ER 30 MG TABLET PO SCH (08:13)
[2017-02-17] MEDS: MULTIVITAMIN TABLET PO SCH ×2 (08:29→12:08)
[2017-02-17] MEDS: hydrALAZINE 25 MG TABLET PO SCH ×3 (08:30→21:57)
[2017-02-17] MEDS: ALLOPURINOL 100 MG TABLET PO SCH (08:31)
[2017-02-17] MEDS: FAMOTIDINE 20 MG TABLET PO SCH (08:32)
[2017-02-17] MEDS: ASPIRIN CHEW 81 MG TABLET PO SCH (08:32)
[2017-02-17] MEDS: DOXAZOSIN 4 MG TABLET PO SCH ×2 (08:32→20:13)
[2017-02-17] MEDS: DULoxetine 20 MG CAPSULE PO SCH (08:33)
[2017-02-17] MEDS: POLYETHYLENE GLYCOL 3350 17 GM PACKET PO SCH (08:35)
[2017-02-17] MEDS: GABAPENTIN 300 MG CAPSULE PO SCH ×2 (08:39→20:13)
[2017-02-17] MEDS: HEPARIN 5,000 UNIT/ML VIAL SUBQ SCH ×2 (08:51→20:12)
[2017-02-17] MEDS ORDERED: FUROSEMIDE 40 MG/4 ML VIAL IVP SCH (09:00)
--- NOTE | 2017-02-17 12:10 | MRI Preliminary Report ---
Exam: MRI ABDOMEN W/O IMPRESSION: A 2.8 cm predominantly solid left posterolateral mid renal mass. Areas of decreased T2 signal may be related to calcification. Distal shadowing was present on ultrasound prior day. Vascularity was also noted within mass on ultrasound. No macroscopic fat evident to suggest an angiomyolipoma. The mass is worrisome for renal cell carcinoma until proven otherwise. [facility] SITE ID: [id number]
--- NOTE | 2017-02-17 13:31 | MRI Report ---
EXAM: MR ABDOMEN WITHOUT CONTRAST (MR KIDNEYS) EXAM DATE: 02/17/2017 11:00 AM. CLINICAL HISTORY: Tumor on ultrasound left kidney. Rule out pheochromocytoma. COMPARISON: Images from renal arterial Doppler ultrasound prior day. TECHNIQUE: Multiplanar breath-hold T1, T2, and DWI sequences obtained through the kidneys and abdomen on an MR scanner. Images obtained without administration of intravenous contrast due to renal failur e with GFR= 24. Respiratory motion artifacts. FINDINGS: Lung Bases: Unremarkable. Liver: The liver has normal size, morphology and signal. No evidence of mass or biliary dilatation. Gallbladder: The gallbladder is partially distended and appears normal with no wall thickening or sto ne. Pancreas: The pancreas appears normal with no mass or ductal dilatation. Spleen: The spleen appears normal. Kidneys: Right Kidney: 7 mm probable T1 hyperintense lateral right mid renal cyst with protein or hemorrhage. 7 mm lateral right lower renal cyst. No hydronephrosis or suspicious right renal mass. Left Kidney: There are multiple scattered left renal cysts, which include a 2 cm anterior lateral lef t upper renal cyst. As on renal arterial doppler ultrasound from prior day, there is a 2.8 x 2.4 x 2.6 cm posterolateral left mid renal mass. Tiny T2 hyperintense foci within the mass may be from cystic areas or necrosis. Prominent areas of decreased T2 signal may be from calcification. Distal shadowing was noted on prior ultrasound. No macroscopic fat evident. The mass abuts the left renal hilum. No renal vein invasion evident on noncontrast imaging. Adrenals: The adrenal glands appear normal. Bowel: The small bowel and colon appear normal with no inflammation or obstruction. Retroperitoneum: The retroperitoneal structures appear normal with no mass or lymphadenopathy. Other: Convex left lumbar scoliosis. Prior lumbar fusion surgery. IMPRESSION: 1. A 2.8 cm predominantly solid left posterolateral mid renal mass. No IV contrast given due to renal failure with GFR of 24. Areas of decreased T2 signal may be related to calcification. Distal shadowi ng was present on renal Doppler ultrasound prior day. Vascularity was noted within the mass on ultras ound. No macroscopic fat evident to suggest angiomyolipoma. Location and appearance are not typical f or extra-adrenal pheochromocytoma, however pheochromocytoma is not excluded. Arterial hypertension ca n also be associated with renal cell carcinoma. The mass is worrisome for renal cell carcinoma until proven otherwise. Recommend clinical correlation. [facility] Referring Provider Line: [phone] SITE ID: [id number]
[2017-02-17] MEDS ORDERED: cloNIDine 0.3 MG PATCH TOP SCH (17:00)
--- NOTE | 2017-02-17 17:07 | PROVIDER PROGRESS NOTE ---
Assessment/Plan - Problem List (1) CHF (congestive heart failure) Qualifiers: Congestive heart failure type: diastolic Congestive heart failure chronicity: unspecified congestive heart failure chronicity Qualified Code(s) : I50.30 - Unspecified diastolic (congestive) heart failure Assessment/Plan: Stable with no further SOB and minimal leg edema (2) Renal insufficiency Assessment/Plan: Elevated creatinine but stable (3) HTN (hypertension) Assessment/Plan: Workup for secondary causes and very resistant to control HTN started: 24 hour urine collection for catecholamines underway, renal arteries could not be imaged by ultrasound due to abdominal gas but a heterogenous tumor was seen. 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 I discussed these findings and her hospital course with Dr Cuellar in [facility] today. He dvised increasing Clonidine patch dose and outpatient management of the newly found renal tumor. This was discussed with the patient. Will transfer out of ICU. (4) Alzheimer's dementia Assessment/Plan: Stable (5) Anemia of renal disease Assessment/Plan: Stable - Current Meds Current Meds: Current Medications Generic Name Dose Route Start Last Admin Trade Name Freq PRN Reason Stop Dose Admin Allopurinol 100 mg 02/15/17 09:00 02/17/17 08:31 Zyloprim PO 100 mg DAILY ASHLY Administration Aspirin 81 mg 02/15/17 09:00 02/17/17 08:32 St Juan Aspirin PO 81 mg DAILY ASHLY Administration Atorvastatin Calcium 80 mg 02/14/17 21:00 02/16/17 20:12 Lipitor PO 80 mg QPM ASHLY Administration Clonidine HCl 1 patch 02/17/17 17:00 02/17/17 16:24 Syydbqal-Pyw-0 TOP 1 patch Q7D ASHLY Administration Docusate Sodium 100 mg 02/14/17 21:00 02/16/17 20:12 Colace 100mg Capsule PO 100 mg QPM ASHLY Administration Doxazosin Mesylate 4 mg 02/15/17 09:00 02/17/17 08:32 Cardura PO 4 mg BID ASHLY Administration Duloxetine HCl 20 mg 02/15/17 09:00 02/17/17 08:33 Cymbalta PO 20 mg DAILY ASHLY Administration Famotidine 20 mg 02/15/17 09:00 02/17/17 08:32 Pepcid PO 20 mg DAILY ASHLY Administration Gabapentin 600 mg 02/14/17 21:00 02/17/17 08:39 Neurontin PO 600 mg BID ASHLY Administration Heparin Sodium (Porcine) 5,000 unit 02/14/17 21:00 02/17/17 08:51 SUBQ 5,000 unit BID ASHLY Administration Isosorbide Mononitrate 60 mg 02/17/17 08:30 02/17/17 08:13 Imdur PO 60 mg DAILY ASHLY Administration Multivitamins 1 tab 02/15/17 08:00 02/17/17 12:08 Theragran PO 1 tab DAILYWM ASHLY Administration Polyethylene Glycol 17 gm 02/15/17 09:00 02/17/17 08:35 Miralax PO Not Given DAILY ASHLY Sodium Chloride 10 ml 02/14/17 11:26 02/14/17 21:07 Normal Saline Flush 0.9% IVP 10 ml PRN PRN Administration NEEDED PER PROVIDER ORDERS Sodium Chloride 10 ml 02/14/17 14:00 02/17/17 13:19 Normal Saline Flush 0.9% IVP 10 ml Q8HR ASHLY Administration - Lab Result Fish Bone Diagrams: 02/17/17 04:56 02/17/17 04:56 - Additional Planning My Orders: My Active Orders 02/17/17 Urinalysis w/ Micro, Reflex Cult If [UA w/ MICROSCOPIC, CULT IF] [URIN] Routine 02/17/17 08:30 Isosorbide Mononitrate ER [Imdur] 60 mg PO DAILY 02/17/17 16:05 Transfer [Admit \ Transfer \ Status] [RC] .ONCE 02/17/17 17:00 cloNIDine 0.3 MG PATCH [Oyajmjmj-Hqm-3] 1 patch TOP Q7D 02/17/17 22:00 hydrALAZINE [Apresoline] 75 mg PO TID 02/18/17 09:00 Furosemide [Lasix] 80 mg PO DAILY Subjective - Subjective Patient Reports: Resting Comfortably, No Complaints Nursing Reports: No Complaints Objective Vital Signs: Vital Signs - 24 hr 02/16/17 02/16/17 02/16/17 18:00 18:30 19:00 Temperature Heart Rate [ 77 77 74 Monitoring electrodes] Respiratory 20 17 14 Rate Blood Pressure 154/57 H 163/56 H 177/53 H [Right Brachial artery] O2 Saturation 95 93 93 02/16/17 02/16/17 02/16/17 19:34 20:00 20:37 Temperature 36.7 C Heart Rate [ 70 Monitoring electrodes] Respiratory 18 Rate Blood Pressure 171/66 H 176/66 H 188/61 H [Right Brachial artery] O2 Saturation 93 02/16/17 02/16/17 02/16/17 21:00 21:43 22:00 Temperature Heart Rate [ 76 76 Monitoring electrodes] Respiratory 15 17 Rate Blood Pressure 183/61 H 168/62 H 166/55 H [Right Brachial artery] O2 Saturation 94 93 02/16/17 02/17/17 02/17/17 23:00 00:00 01:00 Temperature Heart Rate [ 70 67 73 Monitoring electrodes] Respiratory 14 14 15 Rate Blood Pressure 158/55 H 134/52 H 160/60 H [Right Brachial artery] O2 Saturation 96 97 98 02/17/17 02/17/17 02/17/17 01:30 02:00 02:30 Temperature Heart Rate [ 69 66 69 Monitoring electrodes] Respiratory 13 11 L 20 Rate Blood Pressure 171/58 H 160/54 H 153/57 H [Right Brachial artery] O2 Saturation 96 98 98 02/17/17 02/17/17 02/17/17 03:00 04:00 04:30 Temperature 36.7 C Heart Rate [ 66 68 69 Monitoring electrodes] Respiratory 14 13 14 Rate Blood Pressure 153/55 H 156/47 H 166/53 H [Right Brachial artery] O2 Saturation 98 96 94 02/17/17 02/17/17 02/17/17 05:00 05:30 06:00 Temperature 36.6 C Heart Rate [ 75 69 70 Monitoring electrodes] Respiratory 14 14 14 Rate Blood Pressure 156/55 H 158/60 H 166/57 H [Right Brachial artery] O2 Saturation 96 94 95 02/17/17 02/17/17 02/17/17 06:41 06:45 07:00 Temperature Heart Rate [ 76 75 67 Monitoring electrodes] Respiratory 12 19 12 Rate Blood Pressure 166/63 H 166/55 H 176/64 H [Right Brachial artery] O2 Saturation 95 95 98 02/17/17 02/17/17 02/17/17 08:00 09:00 11:00 Temperature 36.5 C 36.5 C Heart Rate [ 73 66 67 Monitoring electrodes] Respiratory 17 14 12 Rate Blood Pressure 181/59 H 193/63 H 189/63 H [Right Brachial artery] O2 Saturation 99 94 93 02/17/17 02/17/17 02/17/17 12:00 13:00 14:00 Temperature 36.4 C L 36.5 C Heart Rate [ 75 70 70 Monitoring electrodes] Respiratory 13 12 20 Rate Blood Pressure 162/54 H 160/67 H 169/50 H [Right Brachial artery] O2 Saturation 94 94 96 02/17/17 02/17/17 15:00 16:00 Temperature 37.1 C Heart Rate [ 60 63 Monitoring electrodes] Respiratory 15 16 Rate Blood Pressure 178/63 H 190/61 H [Right Brachial artery] O2 Saturation 96 95 Oxygen O2 Source Room air I&O (Last 24 Hrs): Intake and Output Totals x24h 02/15/17 02/16/17 02/17/17 23:59 23:59 23:59 Intake Total 1401.85 373.550 774.60 Output Total 500 1150 1575 Balance 901.85 -776.450 -800.40 General: Alert HEENT: Mucous membr. moist/pink, Other (Pale) Neck: No JVD Neuro: Other (Intermittently poor memory) Cardiovascular: No murmurs Abdomen: Soft Extremities: Other (1+ edema) - Results Results: Laboratory Results WBC 3.5 x10^3/uL (4.8-10.8) L 02/17/17 04:56 RBC 2.86 10^6/uL (4.20-5.40) L 02/17/17 04:56 Hgb 8.7 g/dL (12.0-16.0) L 02/17/17 04:56 Hct 26.7 % (37.0-47.0) L 02/17/17 04:56 MCV 93.3 fL (81.0-99.0) 02/17/17 04:56 MCH 30.5 pg (27.0-31.0) 02/17/17 04:56 MCHC 32.7 g/dL (32.0-36.0) 02/17/17 04:56 RDW 17.8 % (12.0-15.0) H 02/17/17 04:56 Plt Count 107 10^3/uL (130-450) L 02/17/17 04:56 MPV 8.8 fL (7.9-10.8) 02/17/17 04:56 Neut # 1.9 10^3/uL (1.5-6.6) 02/17/17 04:56 Lymph # 1.0 10^3/uL (1.5-3.5) L 02/17/17 04:56 [place] # 0.4 10^3/uL (0.0-1.0) 02/17/17 04:56 Eos # 0.1 10^3/uL (0.0-0.7) 02/17/17 04:56 Baso # 0.0 10^3/uL (0.0-0.1) 02/17/17 04:56 Absolute Nucleated RBC 0.00 x10^3/uL 02/17/17 04:56 Nucleated RBC % 0.0 /100WBC 02/17/17 04:56 Manual Slide Review Indicated 02/14/17 09:48 Platelet Estimate DECREASED (<130,000) (NORMAL) 02/14/17 09:48 Platelet Morphology NORMAL APPEARANCE (NORMAL) 02/14/17 09:48 RBC Morph Micro Appear NORMAL APPEARANCE (NORMAL) 02/14/17 09:48 Sodium 142 mmol/L (135-145) 02/17/17 04:56 Potassium 4.0 mmol/L (3.5-5.0) 02/17/17 04:56 Chloride 105 mmol/L (101-111) 02/17/17 04:56 Carbon Dioxide 28 mmol/L (21-32) 02/17/17 04:56 Anion Gap 9.0 (6-13) 02/17/17 04:56 BUN 41 mg/dL (6-20) H 02/17/17 04:56 Creatinine 2.0 mg/dL (0.4-1.0) H 02/17/17 04:56 Estimated GFR (MDRD) 24 (>89) L 02/17/17 04:56 Glucose 104 mg/dL (70-100) H 02/17/17 04:56 Calcium 8.5 mg/dL (8.5-10.3) 02/17/17 04:56 Magnesium 1.9 mg/dL (1.7-2.8) 02/17/17 04:56 Total Bilirubin 0.7 mg/dL (0.2-1.0) 02/14/17 09:48 AST 28 IU/L (10-42) 02/14/17 09:48 ALT 23 IU/L (10-60) 02/14/17 09:48 Alkaline Phosphatase 88 IU/L (42-121) 02/14/17 09:48 Troponin I < 0.04 ng/mL (<0.49) 02/16/17 09:16 B-Natriuretic Peptide 370 pg/mL (5-100) H 02/15/17 04:20 Total Protein 5.7 g/dL (6.7-8.2) L 02/14/17 09:48 Albumin 3.2 g/dL (3.2-5.5) 02/14/17 09:48 Globulin 2.5 g/dL (2.1-4.2) 02/14/17 09:48 Albumin/Globulin Ratio 1.3 (1.0-2.2) 02/14/17 09:48 Lipase 35 U/L (22-51) 02/14/17 09:48 - Procedures Procedures: Procedures CLOSED ENDOSCOPIC BIOPSY OF LARGE INTESTINE (10/24/14) ENDOSC POLYPECTOMY OF LG INTEST (10/24/14) INSPECTION OF LOWER INTESTINAL TRACT, ENDO (06/26/15) INSPECTION OF UPPER INTESTINAL TRACT, ENDO (06/26/15)
[2017-02-17] MEDS: DOCUSATE SODIUM 100 MG CAPSULE PO SCH (20:13)
[2017-02-17] MEDS: ATORVASTATIN 40 MG TABLET PO SCH (20:14)
[2017-02-18] MEDS: hydrALAZINE 25 MG TABLET PO SCH (05:56)
[2017-02-18] MEDS: SODIUM CHLORIDE FLUSH 0.9% 10 ML SYRINGE IVP SCH (05:57)
[2017-02-18] MEDS: ISOSORBIDE MONONITRATE ER 30 MG TABLET PO SCH (08:19)
[2017-02-18] MEDS: DULoxetine 20 MG CAPSULE PO SCH (08:20)
[2017-02-18] MEDS: GABAPENTIN 300 MG CAPSULE PO SCH (08:20)
[2017-02-18] MEDS: DOXAZOSIN 4 MG TABLET PO SCH (08:20)
[2017-02-18] MEDS: MULTIVITAMIN TABLET PO SCH (08:20)
[2017-02-18] MEDS: POLYETHYLENE GLYCOL 3350 17 GM PACKET PO SCH (08:20)
[2017-02-18] MEDS: ASPIRIN CHEW 81 MG TABLET PO SCH (08:20)
[2017-02-18] MEDS: FAMOTIDINE 20 MG TABLET PO SCH (08:21)
[2017-02-18] MEDS: ALLOPURINOL 100 MG TABLET PO SCH (08:21)
[2017-02-18] MEDS: HEPARIN 5,000 UNIT/ML VIAL SUBQ SCH (08:22)
[2017-02-18] MEDS ORDERED: FUROSEMIDE 40 MG TABLET PO SCH (09:00)
[2017-02-18 09:04] VITALS: BP 140/42
--- NOTE | 2017-02-18 12:01 | Discharge Plan ---
Discharge Plan Disposition: 01 Home, Self Care Prescriptions: cloNIDine 0.3 MG PATCH [Izcfxcwi-Bow-7] 1 patch TOP Q7D #4 patch Furosemide [Lasix] 80 mg PO DAILY #30 tablet hydrALAZINE [Apresoline] 75 mg PO TID #270 tablet Isosorbide Mononitrate ER [Imdur] 60 mg PO DAILY #30 tablet Diet: Low Sodium Activity Restrictions: Activity as Tolerated Shower Restrictions: No Driving Restrictions: Yes (as per Nelsy Carrington (your PCP)) Additional Instructions or Follow Up instructions: See Dr Cuellar in [facility] in 1-2 weeks for BP check and next plans for your kidney tumor. Note the changes in medications: STOP Nifedipine, Flurinef and Cardura START the new Imdur tablet, Clonidine patch, higher dose of Lasix, higher dose of Hydralazine Follow-Up Care: [facility] - Medical (Dr Cuellar) No Smoking: If you smoke, Please STOP! Call for help. Follow-up with: Jose Luis Carrington ARNP [Primary Care Provider] -
--- NOTE | 2017-02-27 19:10 | DISCHARGE SUMMARY ---
DATE OF ADMISSION: 02/14/2017 DATE OF DISCHARGE: 02/18/2017 HISTORY OF PRESENT ILLNESS: This is an 81-year-old white female with a history of chronic renal insuf ficiency, followed by a hand packager, a history of hypertension, and dementia. The patient was admitt ed with complaints of chest pain, dyspnea on exertion, and leg edema that had progressed over about 4 weeks. HOSPITAL COURSE AND DISCHARGE DIAGNOSES: 1. Hypertension. The patient had multiple adjustments in her medications for control of blood pressur e. Florinef was discontinued. Amlodipine was not used (it was recently discontinued as an outpatient) . The hydralazine dose was adjusted. A clonidine patch was started. Her Lasix dose was increased, and Imdur was also started. The patient also had a low-sodium diet and was instructed on fluid and salt restriction. The patient underwent studies for evaluation for pheochromocytoma and renal artery steno sis, and these were negative. However imaging studies did reveal a renal neoplasm (see below). 2. Acute on chronic kidney disease. The patient's admission creatinine was 1.7, which worsened slight ly throughout this hospital stay. At the time of discharge, her creatinine was 2.0. 3. Dementia. According to the , as well as input from her PCP, Nelsy , her memory loss had been stuttering, and she had recently undergone outpatient evaluation for dementia, but had not been started on any medications such as Aricept. The PCP had advised that she no longer drive a car. There was no other workup done here regarding this diagnosis. 4. Renal neoplasm. During the workup for secondary causes of hypertension, the patient underwent an a bdominal ultrasound, which did not visualize renal artery flow, but it was able to see a tumor associ ated with the kidney on the left. Because of this, she underwent an MRI of the abdomen, and this show ed multiple scattered left renal cysts and a mass near the left renal hilum. This was described as be ing either cystic or necrotic, as well as having some calcification. I discussed this finding with he hand packager, Dr. Cuellar, who is aware of this and advised that she have followup with him as an outp atient for further management of this renal tumor. 5. Chest pain. The patient underwent myocardial perfusion scan testing as well as pharmacological str ess testing, and this showed an LVEF of 74% and no areas consistent with myocardial ischemia. It was felt that the patient's chest pain and dyspnea were related to her volume overload. For this reason, her Lasix dose required increase during this hospital stay. CONDITION AT DISCHARGE: Stable. PHYSICAL EXAMINATION AT DISCHARGE: VITAL SIGNS: Blood pressure 140/42, heart rate 81 in sinus rhythm. HEENT: Unremarkable, with moist mucous membranes. NECK: No elevation of JVD. CHEST: Clear. CARDIOVASCULAR: Heart sounds normal. ABDOMEN: Soft. No bruits. EXTREMITIES: Legs with trace to 1+ edema of the shins (whereas at admission, it was 3+ edema to above the knees). MEDICATIONS AT DISCHARGE: 1. Clonidine 0.3 mg patch topically weekly. 2. Furosemide 80 mg p.o. daily. 3. Hydralazine 75 mg p.o. t.i.d. 4. Imdur 30 mg p.o. daily. 5. Tylenol p.r.n. 6. Allopurinol 100 mg p.o. daily. 7. Baby aspirin daily. 8. Lipitor 80 mg p.o. at bedtime. 9. Colace 100 mg p.o. in the evening. 10. Cymbalta 20 mg p.o. daily. 11. Gabapentin 600 mg p.o. b.i.d. 12. Multivitamin daily. 13. MiraLax p.r.n. ALLERGIES (UNKNOWN IF THESE ARE RASH OR SIDE EFFECT-PRODUCING COMPLAINTS): 1. AMOXICILLIN. 2. NIACIN. 3. NIFEDIPINE. 4. POTASSIUM. FOLLOWUP: With her PCP, Nelsy , as well as the hand packager, Dr. Cuellar, in the [facility] here . TIME REQUIRED FOR COMPLETION OF THIS DISCHARGE: 45 minutes. JOB #: [id number] EXT JOB #:[id number]
== END 2017-02-18 13:00 | disposition home or self-care (01) | DRG 292 ==
LOC: ED 09:09 → ICU 11:26
PROVIDERS: ADMIT Internal Medicine; ATTEND Internal Medicine
DX: N28.9 Disorder of kidney and ureter, unspecified (principal); I13.0 Hypertensive heart and chronic kidney disease with heart failure and stage 1 through stage 4 chronic kidney disease, or unspecified chronic kidney disease; I11.0 Hypertensive heart disease with heart failure; I50.9 Heart failure, unspecified; E78.00 Pure hypercholesterolemia, unspecified; G62.9 Polyneuropathy, unspecified; Z87.11 Personal history of peptic ulcer disease; J32.8 Other chronic sinusitis; N17.9 Acute kidney failure, unspecified; I50.30 Unspecified diastolic (congestive) heart failure; N18.9 Chronic kidney disease, unspecified; R07.9 Chest pain, unspecified; D49.512 Neoplasm of unspecified behavior of left kidney; N28.1 Cyst of kidney, acquired; G30.9 Alzheimer's disease, unspecified; F02.80 Dementia in other diseases classified elsewhere, unspecified severity, without behavioral disturbance, psychotic disturbance, mood disturbance, and anxiety; D63.1 Anemia in chronic kidney disease; M19.90 Unspecified osteoarthritis, unspecified site; Z79.82 Long term (current) use of aspirin; Z79.899 Other long term (current) drug therapy; Z96.659 Presence of unspecified artificial knee joint; Z87.891 Personal history of nicotine dependence
CPT/HCPCS: 36415; 71010; 74181; 78452; 80048; 80053; 82088; 83690; 83735; 83835; 83880; 84244; 84484; 85025; 87150; 93005; 93017; 93306; 93975; 96374; 99284

== ENCOUNTER 2017-03-10 11:30 | Outpatient (CLI) | payer MEDICARE, OTHER ==
[2017-03-10 15:28] LABS: BASOPHILS % (AUTO) 0.5 %; EOSINOPHILS # (AUTO) 0.2 10^3/uL (0.0-0.7); EOSINOPHILS % (AUTO) 3.5 %; LYMPHOCYTES # (AUTO) 1.1 10^3/uL (1.5-3.5); LYMPHOCYTES % (AUTO) 23.4 %; MEAN CORPUSCULAR HEMOGLOBIN 31.4 pg (27.0-31.0); MEAN CORPUSCULAR HGB CONC 33.5 g/dL (32.0-36.0); MEAN CORPUSCULAR VOLUME 93.5 fL (81.0-99.0); MEAN PLATELET VOLUME 10.6 fL (7.9-10.8); MONOCYTES # (AUTO) 0.4 10^3/uL (0.0-1.0); MONOCYTES % (AUTO) 8.4 %; NEUTROPHILS # (AUTO) 2.9 10^3/uL (1.5-6.6); NEUTROPHILS % (AUTO) 64.2 %; NUCLEATED RED BLOOD CELLS AUTO 0.2 /100WBC; RED BLOOD COUNT 2.88 10^6/uL (4.20-5.40); RED CELL DISTRIBUTION WIDTH 16.9 % (12.0-15.0); UNCORRECTED WHITE BLOOD COUNT 4.5 x10^3/uL; WHITE BLOOD COUNT 4.5 x10^3/uL (4.8-10.8)
[2017-03-10 17:02] LABS: ALBUMIN/GLOBULIN RATIO 1.3 (1.0-2.2); BILIRUBIN,TOTAL 0.4 mg/dL (0.2-1.0); CALCIUM 9.5 mg/dL (8.5-10.3); CREATININE 2.8 mg/dL (0.4-1.0); POTASSIUM 4.8 mmol/L (3.5-5.0); TOTAL PROTEIN 6.7 g/dL (6.7-8.2)
== END 2017-03-10 11:31 | disposition home or self-care (01) ==
LOC: LAB.R 11:30
PROVIDERS: ATTEND Nurse Practitioner Primary Care
DX: D63.1 Anemia in chronic kidney disease (principal); I50.9 Heart failure, unspecified; N28.89 Other specified disorders of kidney and ureter; N18.4 Chronic kidney disease, stage 4 (severe); E87.5 Hyperkalemia
CPT/HCPCS: 80053; 82728; 83540; 83615; 83880; 84466; 85025; 85027

== ENCOUNTER 2017-05-22 10:00 | Outpatient (CLI) | payer MEDICARE, OTHER | END 2017-05-22 10:01 | disposition home or self-care (01) | LOC: LAB.N 10:00 | PROVIDERS: ATTEND Internal Medicine Nephrology | DX: Z53.9 Procedure and treatment not carried out, unspecified reason (principal); E87.5 Hyperkalemia | CPT/HCPCS: 36415; 84132 ==

== ENCOUNTER 2017-06-06 08:38 | Emergency (ER) | payer MEDICARE, OTHER ==
--- NOTE | 2017-06-06 08:52 | ED Physician Documentation ---
PD HPI DYSPNEA - Stated complaint Stated Complaint: SOA - History obtained from History obtained from: Patient - History of Present Illness Timing - onset: Yesterday Timing - onset during: Rest Timing - duration: Days (1) Timing - details: Gradual onset Inciting event(s): Other (recent medication changes) Improved by: Rest Worsened by: Exertion Associated symptoms: No: Fever, Cough, Hemoptysis, Wheezing, Chest pain / discomfort, Palpitations, Diaphoresis, Bilateral edema, Unilateral edema Similar symptoms before: Diagnosis (CHF) Recently seen: Clinic - Additional information Additional information: 82-year-old female with a history of renovascular hypertension and stage IV renal failure has had some recent adjustments to her medications with an increase in her furosemide and hydralazine. She is having a sensation now that he she needs to stop and take a deep breath and this is not like which she has had before when she has had shortness of breath walking across the room. She does not feel that she is in any in any distress. She is about 5 pounds less than her usual dry weight today. Review of Systems Constitutional: denies: Fever Eyes: denies: Decreased vision Ears: denies: Ear pain Nose: denies: Rhinorrhea / runny nose, Congestion Throat: denies: Sore throat Cardiac: denies: Chest pain / pressure Respiratory: reports: Dyspnea. denies: Cough GI: denies: Abdominal Pain, Nausea, Vomiting : denies: Dysuria, Frequency Skin: denies: Rash Musculoskeletal: denies: Neck pain, Back pain, Extremity pain PD PAST MEDICAL HISTORY - Past Medical History Cardiovascular: Congestive heart failure, Hypertension, High cholesterol, Murmur Respiratory: None Neuro: Peripheral neuropathy Endocrine/Autoimmune: None GI: Ulcers, Colon polyps : Renal insuffiency HEENT: Chronic sinusitis Psych: None Musculoskeletal: Osteoarthritis Derm: None - Past Surgical History Past Surgical History: Yes General: Appendectomy, Colonoscopy, EGD Ortho: Knee replacement, 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, 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 Cardiovascular: Other HEENT: Cataracts - Present Medications Home Medications: Ambulatory Orders Medication Instructions Recorded Confirmed Polyethylene Glycol 3350 [Miralax] 17 gm PO DAILY PRN 08/09/12 05/23/17 DULoxetine [Cymbalta] 20 mg PO DAILY 07/27/16 05/23/17 Aspirin Chewable [[place] 81 mg PO DAILY 02/14/17 05/23/17 Aspirin] Atorvastatin Calcium 80 mg PO QPM 02/14/17 05/23/17 Docusate Sodium 100 mg PO PRN PRN 02/14/17 05/23/17 Acetaminophen [Tylenol] 650 mg PO Q4HR PRN tablet 02/18/17 05/23/17 Isosorbide Mononitrate ER [Imdur] 60 mg PO DAILY #30 tablet 02/18/17 05/23/17 Multivitamin [Theragran] 1 tab PO DAILYWM tablet 02/18/17 05/23/17 cloNIDine 0.3 MG PATCH 1 patch TOP Q7D #4 patch 02/18/17 05/23/17 [Nxmnmfny-Hlm-2] hydrALAZINE [Apresoline] 75 mg PO TID #270 tablet 02/18/17 05/23/17 Allopurinol 50 mg PO DAILY 03/15/17 05/23/17 Furosemide 20 mg PO DAILY 05/09/17 05/23/17 Gabapentin [Neurontin] 300 mg PO DAILY 05/09/17 05/23/17 Nifedipine [Nifedipine ER] 30 mg PO DAILY #20 tablet.er 06/06/17 - Allergies Allergies/Adverse Reactions: Allergies Allergy/AdvReac Type Severity Reaction Status Date / Time amoxicillin trihydrate * AdvReac Rash Verified 06/06/17 08:57 [From Augmentin] niacin AdvReac Rash Verified 06/06/17 08:57 [From Niaspan Extended-Release] nifedipine AdvReac Edema Verified 06/06/17 08:57 potassium clavulanate * AdvReac Rash Verified 06/06/17 08:57 [From Augmentin] - Social History Does the pt smoke?: No Smoking Status: Former smoker Does the pt drink ETOH?: Yes Does the pt have substance abuse?: No - Immunizations Immunizations are current?: Yes - POLST Patient has POLST: No PD ED PE NORMAL - Vitals Vital signs reviewed: Yes (marked hypertension ) - General General: No acute distress, Well developed/nourished - HEENT HEENT: Atraumatic, PERRL, EOMI - Neck Neck: Supple, no meningeal sign, No bony TTP - Cardiac Cardiac: RRR, Other (2/6 holosystolic murmer at LSB) - Respiratory Respiratory: No respiratory distress, Clear bilaterally - Abdomen Abdomen: Soft, Non tender - Back Back: No CVA TTP, No spinal TTP - Derm Derm: Normal color, Warm and dry, No rash - Extremities Extremities: No deformity, No edema - Neuro Neuro: linemarker 2-12 intact, No motor deficit, No sensory deficit, Normal speech Eye Opening: Spontaneous Motor: Obeys Commands Verbal: Oriented GCS Score: 15 - Psych Psych: Normal mood, Normal affect Results - Vitals Vitals: Vital Signs - 24 hr 06/06/17 06/06/17 06/06/17 08:41 11:51 11:57 Temperature 36.6 C Heart Rate 55 L 64 Respiratory 18 16 Rate Blood Pressure 203/62 H 219/65 H 225/65 H O2 Saturation 100 99 06/06/17 06/06/17 15:04 15:53 Temperature Heart Rate 63 69 Respiratory 16 18 Rate Blood Pressure 223/69 H 276/67 H O2 Saturation 97 98 Oxygen O2 Source Room air - EKG (time done) 0849 Rate: Rate (enter#) (54) Intervals: Prolonged SD Compare to prior EKG: Changed from prior EKG (SPT 11--17 the T-waves have become peaked. ) Computer interpretation: Agree with computer - Labs Labs: Laboratory Tests 06/06/17 06/06/17 06/06/17 10:09 10:20 10:20 WBC RBC Hgb Hct MCV MCH MCHC RDW Plt Count MPV Neut # Lymph # [place] # Eos # Baso # Absolute Nucleated RBC Nucleated RBC % Sodium 136 Potassium 5.2 H Chloride 106 Carbon Dioxide 20 L Anion Gap 10.0 BUN 76 H Creatinine 2.3 H Estimated GFR (MDRD) 20 L Glucose 102 H Calcium 10.5 H Total Bilirubin 0.8 AST 32 ALT 20 Alkaline Phosphatase 90 Troponin I < 0.04 Total Protein 7.6 Albumin 4.3 Globulin 3.3 Albumin/Globulin Ratio 1.3 Lipase 78 H Urine Color YELLOW Urine Clarity CLEAR Urine pH 7.0 Ur Specific [place] 1.015 Urine Protein 100 H Urine Glucose (UA) NEGATIVE Urine Ketones NEGATIVE Urine Occult Blood NEGATIVE Urine Nitrite NEGATIVE Urine Bilirubin NEGATIVE Urine Urobilinogen 0.2 (NORMAL) Ur Leukocyte Esterase NEGATIVE Urine RBC 0-5 Urine WBC 0-3 Ur Squamous Epith Cells RARE Squamous Urine Bacteria Rare Ur Microscopic Review INDICATED Urine Culture Comments NOT INDICATED 06/06/17 13:31 WBC 3.8 L RBC 3.40 L Hgb 11.0 L Hct 32.7 L MCV 96.2 MCH 32.4 H MCHC 33.7 RDW 14.4 Plt Count 144 MPV 9.5 Neut # 2.2 Lymph # 1.2 L [place] # 0.3 Eos # 0.1 Baso # 0.0 Absolute Nucleated RBC 0.00 Nucleated RBC % 0.0 Sodium Potassium Chloride Carbon Dioxide Anion Gap BUN Creatinine Estimated GFR (MDRD) Glucose Calcium Total Bilirubin AST ALT Alkaline Phosphatase Troponin I Total Protein Albumin Globulin Albumin/Globulin Ratio Lipase Urine Color Urine Clarity Urine pH Ur Specific [place] Urine Protein Urine Glucose (UA) Urine Ketones Urine Occult Blood Urine Nitrite Urine Bilirubin Urine Urobilinogen Ur Leukocyte Esterase Urine RBC Urine WBC Ur Squamous Epith Cells Urine Bacteria Ur Microscopic Review Urine Culture Comments Procedures - IVC sono (time) 0900 Bedside IVC sono: IVC measures (cm) (0.8), IVC collapsed c insp (cm) (complete) , Dehydration (est 2 liter deficit) 1500 Bedside IVC sono: IVC measures (cm) (1.26), Dehydration (marked improvement) PD MEDICAL DECISION MAKING - ED course Complexity details: reviewed old records, reviewed results, re-evaluated patient , considered differential, d/w patient, d/w family ED course: 82-year-old female with a history of 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 She is dehydrated enough that it is difficult for our ER staff to establish venous access and anesthesia is consulted in the case. They are able to establish a IV and the patient is administered saline with improvement in her symptoms. On initial evaluation I was able to examine her electrocardiogram and found the T waves were peaked and I was concerned that we would find potassium was markedly elevated. This was not the case and the patient's renal function does not appear to have deteriorated significantly although in review of her numbers it does appear that she has had similar issues previously. I discussed with the patient and her the nature of the dehydration and the symptom of the sigh for a breath being different than the shortness of breath associated with failure and the use of the dry weight for determining the amount of Lasix to use. She was down about 5 pounds from her usual dry weight today. Dr. Cuellar is consulted in the case and recommends addition of nifedapineER 30 and the patients chart shows a reaction to this. After investigation we were not able to find the reaction in her chart and she was discharged on the nifedapine. After she left Nelsy Carrington called us back indicating the reaction was cocktail server leg swelling. She will call the patient and make adjustments to her medication as appropriate. Departure - Departure Disposition: 01 Home, Self Care Clinical Impression: Dehydration HTN (hypertension) Qualifiers: Hypertension type: renovascular hypertension Qualified Code(s): I15.0 - Renovascular hypertension Condition: Stable Instructions: Nifedipine extended-release tablets, ED Dehydration Follow-Up: Jose Luis Carrington ARNP [Primary Care Provider] - Winsome Cuellar MD [Provider Admit Priv/Credential] - Prescriptions: Nifedipine [Nifedipine ER] 30 mg PO DAILY #20 tablet.er Discharge Date/Time: 06/06/17 16:16
[2017-06-06] MEDS ORDERED: SODIUM CHLORIDE 0.9% 1,000 ML IV ONE ×2 (09:11→15:31)
[2017-06-06 10:35] LABS: BILIRUBIN,URINE NEGATIVE (NEGATIVE); GLUCOSE, URINE (UA) NEGATIVE (NEGATIVE); KETONES,URINE (UA) NEGATIVE (NEGATIVE); LEUKOCYTE ESTERASE, URINE NEGATIVE (NEGATIVE); NITRITE,URINE NEGATIVE (NEGATIVE); OCCULT BLOOD,URINE NEGATIVE (NEGATIVE); PROTEIN,URINE 100 mg/dL (NEGATIVE); UROBILINOGEN,URINE 0.2 (NORMAL) E.U./dL (NORMAL)
[2017-06-06 10:37] LABS: CLARITY,URINE CLEAR (CLEAR)
[2017-06-06 10:49] LABS: BACTERIA,URINE Rare /HPF (None Seen); RBC,URINE 0-5 /HPF (0-5); SQUAMOUS EPITHELIAL CELL,UR RARE Squamous (<= Few)
[2017-06-06 10:54] LABS: ALBUMIN 4.3 g/dL (3.2-5.5); ALBUMIN/GLOBULIN RATIO 1.3 (1.0-2.2); BILIRUBIN,TOTAL 0.8 mg/dL (0.2-1.0); CALCIUM 10.5 mg/dL (8.5-10.3); CREATININE 2.3 mg/dL (0.4-1.0); TOTAL PROTEIN 7.6 g/dL (6.7-8.2)
[2017-06-06 13:43] LABS: BASOPHILS % (AUTO) 0.5 %; EOSINOPHILS # (AUTO) 0.1 10^3/uL (0.0-0.7); EOSINOPHILS % (AUTO) 1.5 %; LYMPHOCYTES # (AUTO) 1.2 10^3/uL (1.5-3.5); LYMPHOCYTES % (AUTO) 31.5 %; MEAN CORPUSCULAR HEMOGLOBIN 32.4 pg (27.0-31.0); MEAN CORPUSCULAR HGB CONC 33.7 g/dL (32.0-36.0); MEAN CORPUSCULAR VOLUME 96.2 fL (81.0-99.0); MEAN PLATELET VOLUME 9.5 fL (7.9-10.8); MONOCYTES # (AUTO) 0.3 10^3/uL (0.0-1.0); MONOCYTES % (AUTO) 8.3 %; NEUTROPHILS # (AUTO) 2.2 10^3/uL (1.5-6.6); NEUTROPHILS % (AUTO) 58.2 %; PLT - PLATELET COUNT 144 10^3/uL (130-450); RED CELL DISTRIBUTION WIDTH 14.4 % (12.0-15.0); WHITE BLOOD COUNT 3.8 x10^3/uL (4.8-10.8)
[2017-06-06 15:54] VITALS: BP 276/67
== END 2017-06-06 16:16 | disposition home or self-care (01) ==
LOC: ED 08:38
DX: E86.0 Dehydration (principal); I13.0 Hypertensive heart and chronic kidney disease with heart failure and stage 1 through stage 4 chronic kidney disease, or unspecified chronic kidney disease; N18.4 Chronic kidney disease, stage 4 (severe); I50.9 Heart failure, unspecified; I45.81 Long QT syndrome; E78.00 Pure hypercholesterolemia, unspecified; G62.9 Polyneuropathy, unspecified; Z96.659 Presence of unspecified artificial knee joint; Z79.82 Long term (current) use of aspirin
CPT/HCPCS: 36415; 80053; 81001; 81003; 83690; 84484; 85025; 87086; 93005; 96360; 96361; 99284

== ENCOUNTER 2017-06-12 09:17 | Emergency (ER) | payer MEDICARE, OTHER ==
[2017-06-12] MEDS ORDERED: SODIUM CHLORIDE 0.9% 1,000 ML IV ONE (12:07)
--- NOTE | 2017-06-12 12:07 | ED Physician Documentation ---
History of Present Illness - Stated complaint Stated Complaint: R SIDE PX - Chief complaint Chief Complaint: Abd Pain - History obtained from History obtained from: Patient, Family - History of Present Illness Timing: How many days ago (10) - Additonal information Additional information: 82-year-old female does not feel well. The feeling of fullness in her abdomen and has been constipated for about 1 week. In addition she is having some difficulty being up and around with just not feeling right. She was in the emergency department last week with dehydration and was hydrated here in the emergency department and her Lasix was reduced to 20 from 40 mg. She states that today her dry weight was down 132 pounds and when she was seen in the emergency department last week it was 135 pounds in her normal dry weight is 140 pounds Review of Systems Constitutional: reports: Fatigue. denies: Fever, Chills, Myalgias Eyes: denies: Decreased vision Ears: denies: Ear pain Nose: denies: Rhinorrhea / runny nose, Congestion Throat: denies: Sore throat Cardiac: denies: Chest pain / pressure, Palpitations Respiratory: reports: Dyspnea. denies: Cough GI: reports: Abdominal Pain, Constipation. denies: Nausea, Vomiting, Diarrhea : denies: Dysuria, Frequency Skin: denies: Rash Musculoskeletal: denies: Neck pain, Back pain, Extremity pain Neurologic: reports: Generalized weakness. denies: Focal weakness, Numbness PD PAST MEDICAL HISTORY - Past Medical History Cardiovascular: Congestive heart failure, Hypertension, High cholesterol, Murmur Respiratory: None Neuro: Peripheral neuropathy Endocrine/Autoimmune: None GI: Ulcers, Colon polyps : Renal insuffiency HEENT: Chronic sinusitis Psych: None Musculoskeletal: Osteoarthritis Derm: None - Past Surgical History Past Surgical History: Yes General: Appendectomy, Colonoscopy, EGD Ortho: Knee replacement, Spine surgery /PREP COOK: Hysterectomy, Oophrectomy Cardiovascular: Other HEENT: Cataracts - Present Medications Home Medications: Ambulatory Orders Medication Instructions Recorded Confirmed DULoxetine [Cymbalta] 20 mg PO DAILY 07/27/16 05/23/17 Aspirin Chewable [[place] 81 mg PO DAILY 02/14/17 05/23/17 Aspirin] Atorvastatin Calcium 80 mg PO QPM 02/14/17 05/23/17 Docusate Sodium 100 mg PO PRN PRN 02/14/17 05/23/17 Acetaminophen [Tylenol] 650 mg PO Q4HR PRN tablet 02/18/17 05/23/17 Multivitamin [Theragran] 1 tab PO DAILYWM tablet 02/18/17 05/23/17 cloNIDine 0.3 MG PATCH 1 patch TOP Q7D #4 patch 02/18/17 05/23/17 [[id number]] hydrALAZINE [Apresoline] 75 mg PO TID #270 tablet 02/18/17 05/23/17 Allopurinol 50 mg PO DAILY 03/15/17 05/23/17 Furosemide 20 mg PO DAILY 05/09/17 05/23/17 Isosorbide Mononitrate ER [Imdur] 120 mg PO DAILY 06/12/17 06/12/17 - Allergies Allergies/Adverse Reactions: Allergies Allergy/AdvReac Type Severity Reaction Status Date / Time amoxicillin trihydrate * AdvReac Rash Verified 06/06/17 08:57 [From Augmentin] niacin AdvReac Rash Verified 06/06/17 08:57 [From Niaspan Extended-Release] nifedipine AdvReac Edema Verified 06/06/17 08:57 potassium clavulanate * AdvReac Rash Verified 06/06/17 08:57 [From Augmentin] - Social History Does the pt smoke?: No Smoking Status: Never smoker Does the pt drink ETOH?: Yes Does the pt have substance abuse?: No - Immunizations Immunizations are current?: Yes - POLST Patient has POLST: No PD ED PE NORMAL - Vitals Vital signs reviewed: Yes (hypotensive with wide pulse presssure ) - General General: No acute distress, Well developed/nourished - HEENT HEENT: Atraumatic, PERRL, EOMI - Neck Neck: Supple, no meningeal sign, No bony TTP - Cardiac Cardiac: RRR, No murmur - Respiratory Respiratory: No respiratory distress, Clear bilaterally - Abdomen Abdomen: Soft, Non tender - Back Back: No CVA TTP, No spinal TTP - Derm Derm: Normal color, Warm and dry, No rash - Extremities Extremities: No deformity, No edema - Neuro Neuro: hand molder meat 2-12 intact, No motor deficit, No sensory deficit, Normal speech Eye Opening: Spontaneous Motor: Obeys Commands Verbal: Oriented GCS Score: 15 - Psych Psych: Normal mood, Normal affect Results - Vitals Vitals: Vital Signs - 24 hr 06/12/17 06/12/17 06/12/17 09:55 11:19 12:30 Temperature 36.9 C 36 C L Heart Rate 76 69 66 Respiratory 18 14 14 Rate Blood Pressure 118/47 L 156/60 H 158/62 H O2 Saturation 100 99 99 06/12/17 13:36 Temperature 36.2 C L Heart Rate 67 Respiratory 16 Rate Blood Pressure 198/64 H O2 Saturation 99 Oxygen O2 Source Room air - Labs Labs: Laboratory Tests 06/12/17 06/12/17 06/12/17 11:26 12:25 12:25 WBC 5.0 RBC 3.39 L Hgb 10.8 L Hct 32.3 L MCV 95.3 MCH 31.9 H MCHC 33.5 RDW 14.4 Plt Count 150 MPV 9.4 Neut # 3.7 Lymph # 0.9 L [place] # 0.4 Eos # 0.0 Baso # 0.0 Absolute Nucleated RBC 0.00 Nucleated RBC % 0.0 Sodium 135 Potassium 4.6 Chloride 107 Carbon Dioxide 20 L Anion Gap 8.0 BUN 69 H Creatinine 2.6 H Estimated GFR (MDRD) 18 L Glucose 109 H Calcium 9.7 Total Bilirubin 0.7 AST 24 ALT 20 Alkaline Phosphatase 85 Troponin I Total Protein 6.9 Albumin 3.9 Globulin 3.0 Albumin/Globulin Ratio 1.3 Lipase 62 H Urine Color YELLOW Urine Clarity CLEAR Urine pH 5.5 Ur Specific [place] 1.020 Urine Protein >=300 H Urine Glucose (UA) NEGATIVE Urine Ketones NEGATIVE Urine Occult Blood NEGATIVE Urine Nitrite NEGATIVE Urine Bilirubin NEGATIVE Urine Urobilinogen 0.2 (NORMAL) Ur Leukocyte Esterase NEGATIVE Urine RBC 0-5 Urine WBC 0-3 Ur Squamous Epith Cells FEW Squamous Urine Bacteria Rare Urine Casts 3-5 Course Granular Ur Microscopic Review INDICATED Urine Culture Comments NOT INDICATED 06/12/17 12:25 WBC RBC Hgb Hct MCV MCH MCHC RDW Plt Count MPV Neut # Lymph # [place] # Eos # Baso # Absolute Nucleated RBC Nucleated RBC % Sodium Potassium Chloride Carbon Dioxide Anion Gap BUN Creatinine Estimated GFR (MDRD) Glucose Calcium Total Bilirubin AST ALT Alkaline Phosphatase Troponin I < 0.04 Total Protein Albumin Globulin Albumin/Globulin Ratio Lipase Urine Color Urine Clarity Urine pH Ur Specific [place] Urine Protein Urine Glucose (UA) Urine Ketones Urine Occult Blood Urine Nitrite Urine Bilirubin Urine Urobilinogen Ur Leukocyte Esterase Urine RBC Urine WBC Ur Squamous Epith Cells Urine Bacteria Urine Casts Ur Microscopic Review Urine Culture Comments - Rads (name of study) CT abdomen and pelvis without Radiology: Prelim report reviewed (Impression: Diverticulosis without evidence of diverticulitis. A 3 mm calcification along the gallbladder fundal wall. Question gallstone or wall calcification. Prior abdominal MRI and renal artery ultrasound demonstrated a 2.6 cm left renal mass this has not been resected lack by IV contrast limits visualization.), EMP read indepedently, See rad report Procedures - IVC sono (time) 1155 Bedside IVC sono: IVC measures (cm) (0.68), IVC collapsed c insp (cm) (complete) , Significant dehydration PD MEDICAL DECISION MAKING - ED course Complexity details: reviewed old records, reviewed results, re-evaluated patient , considered differential, d/w patient, d/w family ED course: 82 y/o female with hypertension and stage IV renal failure is again below her dry weight, symptomatic with dehydration and taking furosemide. Here in the emergency department she is getting given intravenous fluids and has some improvement.. I recommended the patient stop her Lasix now and measure her weight daily and when she is back up to her usual dry weight to resume at 20 mg per day. She does have excessive stool throughout her abdomen on a CT scan of the abdomen pelvis. Departure - Departure Disposition: 01 Home, Self Care Clinical Impression: Dehydration, Renal insufficiency Constipation Qualifiers: Constipation type: unspecified constipation type Qualified Code(s): K59.00 - Constipation, unspecified Condition: Stable Instructions: ED Constipation, ED Dehydration Follow-Up: Jose Luis Carrington ARNP [Primary Care Provider] - Comments: Today again you are significantly dehydrated. Stop taking your Lasix at 20 mg per day. Measure your daily weight and when your weight approaches 140 pounds start back up on the Lasix at 20 mg per day. Resume your bowel program as previously with the miralax.
[2017-06-12 12:24] LABS: BILIRUBIN,URINE NEGATIVE (NEGATIVE); GLUCOSE, URINE (UA) NEGATIVE (NEGATIVE); KETONES,URINE (UA) NEGATIVE (NEGATIVE); LEUKOCYTE ESTERASE, URINE NEGATIVE (NEGATIVE); NITRITE,URINE NEGATIVE (NEGATIVE); OCCULT BLOOD,URINE NEGATIVE (NEGATIVE); PH,URINE 5.5 PH (5.0-7.5); PROTEIN,URINE >=300 mg/dL (NEGATIVE); UROBILINOGEN,URINE 0.2 (NORMAL) E.U./dL (NORMAL)
[2017-06-12 12:29] LABS: CLARITY,URINE CLEAR (CLEAR)
[2017-06-12 12:30] LABS: BASOPHILS % (AUTO) 0.5 %; HGB - HEMOGLOBIN 10.8 g/dL (12.0-16.0); LYMPHOCYTES # (AUTO) 0.9 10^3/uL (1.5-3.5); MEAN CORPUSCULAR HEMOGLOBIN 31.9 pg (27.0-31.0); MEAN CORPUSCULAR HGB CONC 33.5 g/dL (32.0-36.0); MEAN CORPUSCULAR VOLUME 95.3 fL (81.0-99.0); MEAN PLATELET VOLUME 9.4 fL (7.9-10.8); MONOCYTES # (AUTO) 0.4 10^3/uL (0.0-1.0); MONOCYTES % (AUTO) 7.1 %; NEUTROPHILS # (AUTO) 3.7 10^3/uL (1.5-6.6); NEUTROPHILS % (AUTO) 73.4 %; PLT - PLATELET COUNT 150 10^3/uL (130-450); RED BLOOD COUNT 3.39 10^6/uL (4.20-5.40); RED CELL DISTRIBUTION WIDTH 14.4 % (12.0-15.0)
[2017-06-12 12:30] LABS: BACTERIA,URINE Rare /HPF (None Seen); CASTS, URINE 3-5 Course Granular /LPF; RBC,URINE 0-5 /HPF (0-5); SQUAMOUS EPITHELIAL CELL,UR FEW Squamous (<= Few)
[2017-06-12 12:45] LABS: ALBUMIN 3.9 g/dL (3.2-5.5); ALBUMIN/GLOBULIN RATIO 1.3 (1.0-2.2); BILIRUBIN,TOTAL 0.7 mg/dL (0.2-1.0); CALCIUM 9.7 mg/dL (8.5-10.3); CREATININE 2.6 mg/dL (0.4-1.0); TOTAL PROTEIN 6.9 g/dL (6.7-8.2)
--- NOTE | 2017-06-12 14:02 | CT Preliminary Report ---
Exam: CT ABDOMEN/PELVIS W/O IMPRESSION: Diverticulosis without evidence for diverticulitis. A 3 mm calcification along gallbladder fundal wall. Question gallstone or wall calcification. Prior abdominal MRI and renal artery ultrasound demonstrated a 2.6 cm left renal mass. If this has no t been resected, lack of IV contrast limits visualization. [facility] SITE ID: [id number]
--- NOTE | 2017-06-12 14:10 | CT Report ---
EXAM: CT ABDOMEN AND PELVIS WITHOUT CONTRAST EXAM DATE: 06/12/2017 01:38 PM. CLINICAL HISTORY: Right-sided pain. COMPARISONS: Renal arterial Doppler ultrasound 02/16/2017 and abdominal MRI without IV contrast 02/17. TECHNIQUE: Routine helical CT imaging was performed through the abdomen and pelvis. IV contrast: None . Enteric contrast: No. Reconstructions: Coronal and sagittal. In accordance with CT protocol optimization, one or more of the following dose reduction techniques w ere utilized for this exam: automated exposure control, adjustment of mA and/or KV based on patient s ize, or use of iterative reconstructive technique. FINDINGS: Lung Bases: Unremarkable. Liver: Normal. No masses. Gallbladder/Bile Ducts: 3 mm calcification within gallbladder fundus or wall. Spleen: Elongated posterior splenic calcification compatible with scarring. Pancreas: Normal. Adrenal Glands: Normal. Kidneys: 6 mm hyperdense exophytic lateral left renal cyst. 1.6 cm exophytic anterior left upper renal cyst. Lack of IV contrast limits evaluation of the kidneys . No hydronephrosis. Peritoneal Cavity/Bowel: Diverticulosis. No focal inflammation. The appendix is well visualized and n ormal. Pelvic Organs: Prior hysterectomy. Vasculature: No abdominal aortic aneurysm. Extensive atherosclerotic arterial calcifications. Bones: Prior posterior L2-S1 fusion. Multilevel lumbar spine degenerative changes. Convex left thorac olumbar scoliosis. Other: None. IMPRESSION: 1. Diverticulosis. No evidence for diverticulitis. 2. 3 mm calcification along gallbladder fundal wall. Question gallstone or wall calcification. 3. Prior abdominal MRI and renal arterial Doppler ultrasound demonstrated a 2.6 cm left renal mass. I f this has not been resected, lack of IV contrast would limit visualization on present CT. [facility] Referring Provider Line: [phone] SITE ID: [id number]
[2017-06-12 15:31] VITALS: BP 168/73
== END 2017-06-12 15:40 | disposition home or self-care (01) ==
LOC: ED 09:17
DX: E86.0 Dehydration (principal); N18.4 Chronic kidney disease, stage 4 (severe); K59.00 Constipation, unspecified; I50.9 Heart failure, unspecified; I13.0 Hypertensive heart and chronic kidney disease with heart failure and stage 1 through stage 4 chronic kidney disease, or unspecified chronic kidney disease; Z79.82 Long term (current) use of aspirin; Z79.899 Other long term (current) drug therapy
CPT/HCPCS: 36415; 74176; 80053; 81001; 81003; 83690; 84484; 85025; 87086; 96360; 96361; 99283; 99284

== ENCOUNTER 2017-06-19 08:12 | Outpatient (CLI) | payer MEDICARE, OTHER | END 2017-06-19 23:59 | disposition home or self-care (01) | LOC: LAB.N 08:12 | PROVIDERS: ATTEND Internal Medicine Nephrology | DX: E87.5 Hyperkalemia (principal) | CPT/HCPCS: 36415; 84132 ==

== ENCOUNTER 2017-07-03 08:18 | Outpatient (CLI) | payer MEDICARE, OTHER ==
[2017-07-03 12:38] LABS: CALCIUM 9.4 mg/dL (8.5-10.3); CREATININE 1.6 mg/dL (0.4-1.0)
== END 2017-07-03 08:19 | disposition home or self-care (01) ==
LOC: LAB.N 08:18
PROVIDERS: ATTEND Internal Medicine Nephrology
DX: N05.9 Unspecified nephritic syndrome with unspecified morphologic changes (principal)
CPT/HCPCS: 36415; 80048

== ENCOUNTER 2017-08-29 08:18 | Outpatient (CLI) | payer MEDICARE, OTHER ==
[2017-08-29 12:52] LABS: CALCIUM 9.5 mg/dL (8.5-10.3)
== END 2017-08-29 08:19 ==
LOC: LAB.N 08:18
PROVIDERS: ATTEND Internal Medicine Nephrology
DX: N05.9 Unspecified nephritic syndrome with unspecified morphologic changes (principal)
CPT/HCPCS: 36415; 80048

== ENCOUNTER 2017-10-16 07:51 | Outpatient (CLI) | payer MEDICARE, OTHER ==
[2017-10-16 13:07] LABS: BASOPHILS % (AUTO) 0.5 %; EOSINOPHILS # (AUTO) 0.1 10^3/uL (0.0-0.7); HGB - HEMOGLOBIN 10.4 g/dL (12.0-16.0); LYMPHOCYTES # (AUTO) 0.7 10^3/uL (1.5-3.5); LYMPHOCYTES % (AUTO) 18.4 %; MEAN CORPUSCULAR HEMOGLOBIN 32.5 pg (27.0-31.0); MEAN CORPUSCULAR HGB CONC 31.7 g/dL (32.0-36.0); MEAN CORPUSCULAR VOLUME 102.5 fL (81.0-99.0); MEAN PLATELET VOLUME 9.8 fL (7.9-10.8); MONOCYTES # (AUTO) 0.2 10^3/uL (0.0-1.0); MONOCYTES % (AUTO) 5.6 %; NEUTROPHILS # (AUTO) 2.6 10^3/uL (1.5-6.6); NEUTROPHILS % (AUTO) 73.5 %; PLT - PLATELET COUNT 129 10^3/uL (130-450); RED BLOOD COUNT 3.21 10^6/uL (4.20-5.40); RED CELL DISTRIBUTION WIDTH 19.2 % (12.0-15.0); WHITE BLOOD COUNT 3.6 x10^3/uL (4.8-10.8)
[2017-10-16 13:25] LABS: HB2 TOTAL 11.6 g/dL; HEMOGLOBIN A1C 0.33 g/dL; HEMOGLOBIN A1C % 4.8 % (4.6-6.2)
[2017-10-16 13:44] LABS: ALBUMIN 3.6 g/dL (3.2-5.5); ALBUMIN/GLOBULIN RATIO 1.1 (1.0-2.2); ALKALINE PHOSPHATASE 91 IU/L (42-121); ALT ALANINE AMINOTRANSFERASE 16 IU/L (10-60); AST ASPARTATE AMINOTRANSFERASE 26 IU/L (10-42); BILIRUBIN,TOTAL 0.6 mg/dL (0.2-1.0); BUN - BLOOD UREA NITROGEN 63 mg/dL (6-20); CALCIUM 9.4 mg/dL (8.5-10.3); CARBON DIOXIDE - CO2 18 mmol/L (21-32); CHLORIDE 112 mmol/L (101-111); CHOLESTEROL 179 mg/dL; CRP - C-REACTIVE PROTEIN < 1.0 mg/dL (0-1.0); GFR - MDRD 24 (>89); GLUCOSE 93 mg/dL (70-100); HDL CHOLESTEROL 59 mg/dL; LDL CHOLESTEROL,CALCULATED 88 mg/dL; LDL/HDL RATIO 1.5 (<4.4); SODIUM 137 mmol/L (135-145); VLDL CHOLESTEROL 32 mg/dL
[2017-10-17 14:47] LABS: HIV AG/AB 4TH GEN NON-REACTIVE (NON-REACTIVE)
== END 2017-10-16 07:52 ==
LOC: LAB.N 07:51
PROVIDERS: ATTEND Nurse Practitioner Primary Care
DX: D46.9 Myelodysplastic syndrome, unspecified (principal); R63.4 Abnormal weight loss; I50.9 Heart failure, unspecified; N18.4 Chronic kidney disease, stage 4 (severe); D63.1 Anemia in chronic kidney disease; E78.5 Hyperlipidemia, unspecified
CPT/HCPCS: 36415; 80053; 80061; 83036; 84443; 85025; 86140; G0475; 83721; 87389

== ENCOUNTER 2017-10-16 13:23 | Outpatient (CLI) | payer MEDICARE, OTHER ==
--- NOTE | 2017-10-16 14:28 | XRAY Report ---
Procedure Date: 10/16/2017 Accession Number: [id number] / [id number] Procedure: XRN - Chest 2 View X-Ray CPT Code: 00713 FULL RESULT: EXAM: Chest 2 View X-Ray DATE: 10/16/2017 1:40 PM CLINICAL HISTORY: UNINTENTIONAL WEIGHT LOSS COMPARISON: 02/14/2017 TECHNIQUE: 2 views. FINDINGS: Lungs/Pleura: No focal opacities evident. No pneumothorax or pleural effusion. Normal volumes. Mediastinum: Heart and mediastinal contours are unremarkable. Other: None. IMPRESSION: Normal 2-view chest radiography. Resolution of previously seen congestive failure. [facility]
== END 2017-10-16 13:24 | disposition home or self-care (01) ==
LOC: DI.N 13:23
PROVIDERS: ATTEND Nurse Practitioner Primary Care
DX: R63.4 Abnormal weight loss (principal)
CPT/HCPCS: 71046

== ENCOUNTER 2017-11-02 16:46 | Outpatient (CLI) | payer MEDICARE, OTHER ==
--- NOTE | 2017-11-03 09:12 | Ultrasound Report ---
Procedure Date: 11/02/2017 Accession Number: [id number] / [id number] Procedure: US - Retroperitoneal CPT Code: FULL RESULT: EXAM: Retroperitoneal DATE: 11/02/2017 6:16 PM CLINICAL HISTORY: LT RENAL MASS COMPARISON: 02/16/[address] abdomen pelvis 06/12/2017. TECHNIQUE: Real-time scanning was performed with static images obtained. FINDINGS: Right Kidney: 10.7 cm. Multiple subcentimeter simple cysts are identified. The renal cortex appears somewhat echogenic which can be seen with medical renal disease. Parenchymal flow appears preserved by color Doppler. Left Kidney: 10.4 cm. Redemonstration of a 3.3 x 2.7 x 2.7 cm heterogeneous solid vascular renal mass suspicious for neoplasm. Multiple cysts are also seen the largest of which in the superior pole measures up to 2 cm. Parenchymal flow is preserved by color Doppler. Renal cortex appears mildly echogenic which can be seen with medical renal disease. Bladder: Bilateral jets seen. The prevoid bladder volume was 369 cc. The postvoid bladder volume was 19 cc. IMPRESSION: The known suspicious renal mass measures up to 3.3 cm in the left kidney. Phone conversation with provider Charissa at 9:00 AM reveals that the patient already has an upcoming scheduled appointment with urology for evaluation of this mass. [facility]
== END 2017-11-02 16:47 | disposition home or self-care (01) ==
LOC: DI 16:46
PROVIDERS: ATTEND Nurse Practitioner Primary Care
DX: N28.89 Other specified disorders of kidney and ureter (principal)
CPT/HCPCS: 76770

== ENCOUNTER 2017-12-28 08:00 | Outpatient (CLI) | payer MEDICARE, OTHER ==
[2017-12-28 13:20] LABS: CALCIUM 9.5 mg/dL (8.5-10.3); CREATININE 2.1 mg/dL (0.4-1.0)
== END 2017-12-28 08:01 ==
LOC: LAB.N 08:00
PROVIDERS: ATTEND Internal Medicine Nephrology
DX: N05.9 Unspecified nephritic syndrome with unspecified morphologic changes (principal)
CPT/HCPCS: 36415; 80048

== ENCOUNTER 2018-01-18 07:38 | Outpatient (CLI) | payer MEDICARE, OTHER ==
[2018-01-18 12:52] LABS: CALCIUM 9.5 mg/dL (8.5-10.3); CREATININE 2.2 mg/dL (0.4-1.0)
== END 2018-01-18 07:39 | disposition home or self-care (01) ==
LOC: LAB.N 07:38
PROVIDERS: ATTEND Internal Medicine Nephrology
DX: N05.9 Unspecified nephritic syndrome with unspecified morphologic changes (principal); I50.32 Chronic diastolic (congestive) heart failure
CPT/HCPCS: 36415; 80048; 83880

== ENCOUNTER 2018-02-06 07:58 | Outpatient (CLI) | payer MEDICARE, OTHER ==
--- NOTE | 2018-02-06 12:33 | Ultrasound Report ---
Reason: RENAL ARTERY STENOSIS, HYPERTENSION Procedure Date: 02/06/2018 Accession Number: [id number] / [id number] Procedure: US - Arterial Visceral Complete CPT Code: FULL RESULT: EXAM: RENAL ARTERY DOPPLER ULTRASOUND EXAM DATE: 02/06/2018 09:19 AM. CLINICAL HISTORY: RENAL ARTERY STENOSIS, HYPERTENSION. COMPARISON: 02/06/2018 9:32 AM. TECHNIQUE: Real-time sonographic vascular imaging was performed by the electronics production supervisor through the renal arterial system with a linear transducer utilizing color-flow, Doppler flow, and spectral analysis. Multiple parts sales representative static images were saved for review. FINDINGS: Brisk expected arterial waveforms are preserved throughout the examination. The reportedly known solid vascular renal mass is seen in the left kidney, which measures up to 2.9 cm. Multiple bilateral renal cysts are also identified. Right Kidney: 11.5 x 5.6 x 5.3 cm. Right Segmental Artery: Upper pole: PSV 24 cm/sec, RI 0.78. Mid pole: PSV 26 cm/sec, RI 0.78. Lower pole: PSV 17 cm/sec, RI 0.80. Right Renal Artery: Origin: PSV 189 cm/sec, RA/AO 0.82. Proximal: PSV 186 cm/sec, RA/AO 0.81. Mid: PSV 186 cm/sec, RA/AO 0.81. Distal: PSV 74 cm/sec, RA/AO 0.3. Aorta PSV: 230 cm/sec. RRV Patent: Yes. Left Kidney: 10.8 x 5.3 x 4.6 cm. Left Segmental Artery: Upper pole: PSV 21 cm/sec, RI 0.84. Mid pole: PSV 16 cm/sec, RI 0.77. Lower pole: PSV 15 cm/sec, RI 0.80. Left Renal Artery: Origin: PSV 83 cm/sec, RA/AO 0.36. Proximal: PSV 199 cm/sec, RA/AO 0.87. Mid: PSV 186 cm/sec, RA/AO 0.81. Distal: PSV 143 cm/sec, RA/AO 0.62. LRV Patent: Yes. IMPRESSION: No evidence of renal artery stenosis. CRITERIA FOR CLASSIFICATION OF RENAL ARTERY (RA) DISEASE BY DUPLEX SCANNING: RA Diameter Reduction/ RA PSV/ RAR: Normal, < 180 cm/sec, < 3.5 < 60%, >= 180 cm/sec, < 3.5 >= 60%, >= 180 cm/sec, >= 3.5 Total Occlusion: Undetectable; Not applicable [facility]
== END 2018-02-06 07:59 | disposition home or self-care (01) ==
LOC: DI 07:58
PROVIDERS: ATTEND Internal Medicine Nephrology
DX: I70.1 Atherosclerosis of renal artery (principal); I10 Essential (primary) hypertension
CPT/HCPCS: 93975

== ENCOUNTER 2018-02-19 15:05 | Outpatient (CLI) | payer MEDICARE, OTHER ==
[2018-02-19 15:54] LABS: ALBUMIN 3.3 g/dL (3.2-5.5); ALBUMIN/GLOBULIN RATIO 1.1 (1.0-2.2); BILIRUBIN,TOTAL 0.6 mg/dL (0.2-1.0); CALCIUM 8.5 mg/dL (8.5-10.3); CREATININE 3.1 mg/dL (0.4-1.0); TOTAL PROTEIN 6.3 g/dL (6.7-8.2)
[2018-02-19 16:18] LABS: BASOPHILS % (AUTO) 0.7 %; EOSINOPHILS % (AUTO) 1.9 %; HGB - HEMOGLOBIN 8.7 g/dL (12.0-16.0); LYMPHOCYTES % (AUTO) 17.7 %; MEAN CORPUSCULAR HEMOGLOBIN 31.7 pg (27.0-31.0); MEAN CORPUSCULAR HGB CONC 31.8 g/dL (32.0-36.0); MEAN CORPUSCULAR VOLUME 99.9 fL (81.0-99.0); MEAN PLATELET VOLUME 9.5 fL (7.9-10.8); MONOCYTES % (AUTO) 8.1 %; NEUTROPHILS % (AUTO) 71.6 %; PLT - PLATELET COUNT 145 10^3/uL (130-450); RED BLOOD COUNT 2.75 10^6/uL (4.20-5.40); WHITE BLOOD COUNT 2.3 x10^3/uL (4.8-10.8)
[2018-02-19 16:20] LABS: ABNORMAL LYMPHS % (MANUAL) 0 %
[2018-02-19 16:35] LABS: BAND NEUTROPHILS % (MANUAL) 4 %; BASOPHILS % (MANUAL) 1 %; DIFFERENTIAL COMMENT MANUAL DIFFERENTIAL; LYMPHOCYTES # (MANUAL) 0.4 10^3/uL (1.5-3.5); LYMPHOCYTES % (MANUAL) 18 %; MONOCYTES # (MANUAL) 0.2 10^3/uL (0.0-1.0); NEUTROPHILS # (MANUAL) 1.7 10^3/uL (1.5-6.6); NEUTROPHILS % (MANUAL) 69 %; PLATELET ESTIMATE, MANUAL NORMAL (130-450,000) (NORMAL); PLATELET MORPHOLOGY NORMAL APPEARANCE (NORMAL); RBC MORPHOLOGY (MULTIPLE) 1+ ANISOCYTOSIS (NORMAL)
== END 2018-02-19 15:06 ==
LOC: LAB.R 15:05
PROVIDERS: ATTEND Nurse Practitioner Primary Care
DX: N18.4 Chronic kidney disease, stage 4 (severe) (principal); D63.8 Anemia in other chronic diseases classified elsewhere
CPT/HCPCS: 80053; 85025

== ENCOUNTER 2018-02-26 08:00 | Outpatient (CLI) | payer MEDICARE, OTHER ==
[2018-02-26 20:56] LABS: CREATININE 4.6 mg/dL (0.4-1.0)
== END 2018-02-26 08:01 | disposition home or self-care (01) ==
LOC: LAB.R 08:00
PROVIDERS: ATTEND Nurse Practitioner Primary Care
DX: E87.5 Hyperkalemia (principal); N18.4 Chronic kidney disease, stage 4 (severe)
CPT/HCPCS: 82565; 84132; 84520

== ENCOUNTER 2018-03-05 08:00 | Outpatient (CLI) | payer MEDICARE, OTHER ==
[2018-03-05 16:04] LABS: ALBUMIN 3.5 g/dL (3.2-5.5); BILIRUBIN,TOTAL 0.6 mg/dL (0.2-1.0); CALCIUM 8.7 mg/dL (8.5-10.3); CREATININE 5.3 mg/dL (0.4-1.0); TOTAL PROTEIN 6.9 g/dL (6.7-8.2)
== END 2018-03-05 08:01 | disposition home or self-care (01) ==
LOC: LAB.N 08:00
PROVIDERS: ATTEND Nurse Practitioner Primary Care
DX: N18.5 Chronic kidney disease, stage 5 (principal)
CPT/HCPCS: 36415; 80053

== ENCOUNTER 2018-03-12 08:45 | Outpatient (CLI) | payer MEDICARE, OTHER ==
[2018-03-12 13:31] LABS: CALCIUM 8.9 mg/dL (8.5-10.3); CREATININE 6.8 mg/dL (0.4-1.0)
== END 2018-03-12 08:46 | disposition home or self-care (01) ==
LOC: LAB.N 08:45
PROVIDERS: ATTEND Internal Medicine Nephrology
DX: N05.9 Unspecified nephritic syndrome with unspecified morphologic changes (principal); I50.32 Chronic diastolic (congestive) heart failure
CPT/HCPCS: 36415; 80048; 83880

== ENCOUNTER 2018-05-09 10:25 | Emergency (ER) | payer MEDICARE, OTHER ==
[2018-05-09] MEDS ORDERED: MORPHINE 2 MG/ML CARPUJECT IM STA (11:16)
[2018-05-09 11:38] LABS: BASOPHILS % (AUTO) 0.6 %; EOSINOPHILS % (AUTO) 0.3 %; HGB - HEMOGLOBIN 12.2 g/dL (12.0-16.0); LYMPHOCYTES # (AUTO) 0.4 10^3/uL (1.5-3.5); LYMPHOCYTES % (AUTO) 11.1 %; MEAN CORPUSCULAR HEMOGLOBIN 34.4 pg (27.0-31.0); MEAN CORPUSCULAR HGB CONC 32.7 g/dL (32.0-36.0); MEAN CORPUSCULAR VOLUME 105.2 fL (81.0-99.0); MEAN PLATELET VOLUME 8.7 fL (7.9-10.8); MONOCYTES # (AUTO) 0.4 10^3/uL (0.0-1.0); MONOCYTES % (AUTO) 9.4 %; NEUTROPHILS % (AUTO) 78.6 %; PLT - PLATELET COUNT 109 10^3/uL (130-450); RED BLOOD COUNT 3.54 10^6/uL (4.20-5.40); RED CELL DISTRIBUTION WIDTH 19.4 % (12.0-15.0); WHITE BLOOD COUNT 3.8 x10^3/uL (4.8-10.8)
[2018-05-09 11:50] LABS: BILIRUBIN,URINE NEGATIVE (NEGATIVE); GLUCOSE, URINE (UA) 100 mg/dL (NEGATIVE); KETONES,URINE (UA) NEGATIVE (NEGATIVE); LEUKOCYTE ESTERASE, URINE NEGATIVE (NEGATIVE); NITRITE,URINE NEGATIVE (NEGATIVE); OCCULT BLOOD,URINE LARGE (NEGATIVE); PH,URINE 8.5 PH (5.0-7.5); PROTEIN,URINE >=300 mg/dL (NEGATIVE); UROBILINOGEN,URINE 0.2 (NORMAL) E.U./dL (NORMAL)
[2018-05-09 11:52] LABS: CLARITY,URINE CLEAR (CLEAR)
[2018-05-09 11:59] LABS: BACTERIA,URINE Rare /HPF (None Seen); RBC,URINE TNTC /HPF (0-5); SQUAMOUS EPITHELIAL CELL,UR RARE Squamous (<= Few)
[2018-05-09 12:03] LABS: ALBUMIN 3.2 g/dL (3.2-5.5); ALBUMIN/GLOBULIN RATIO 1.2 (1.0-2.2); BILIRUBIN,TOTAL 0.6 mg/dL (0.2-1.0); CALCIUM 8.7 mg/dL (8.5-10.3); TOTAL PROTEIN 5.9 g/dL (6.7-8.2)
--- NOTE | 2018-05-09 12:14 | XRAY Report ---
Reason: Low back pain Procedure Date: 05/09/2018 Accession Number: [id number] / [id number] Procedure: XR - Lumbar Spine 2 View CPT Code: FULL RESULT: EXAM: LUMBOSACRAL SPINE RADIOGRAPHY EXAM DATE: 05/09/2018 12:01 PM. CLINICAL HISTORY: Low back pain. COMPARISONS: XR LUMBOSACRAL SPINE 4 VIEWS 11/02/2006 12:27 PM. TECHNIQUE: 3 views. FINDINGS: There has been interval fusion with unilateral pedicle screws and interconnecting rods span L2 through S1 with interbody grafts and no osseous fusion as yet. There is now a thoracolumbar S-shaped scoliosis with the thoracic dextroconvex curvature incompletely imaged, centered approximately at T8 with following levoconvex lumbar curvature centered about L1-L2. Evaluation of the lateral radiograph is complicated by limiting motion artifacts. There is apparent anterolisthesis of L4 on L5 of approximately 5 mm, stable to improved compared to prior. Aortic calcifications are noted. IMPRESSION: Lumbar spinal fusion hardware as described. [facility]
--- NOTE | 2018-05-09 13:06 | CT Report ---
Reason: left flank pain Procedure Date: 05/09/2018 Accession Number: [id number] / [id number] Procedure: CT - Abdomen/Pelvis W/O CPT Code: FULL RESULT: EXAM: CT ABDOMEN AND PELVIS (CT KUB) EXAM DATE: 05/09/2018 12:43 PM. CLINICAL HISTORY: Left flank pain. COMPARISONS: ABDOMEN/PELVIS W/O 06/12/2017 1:33 PM. TECHNIQUE: Routine axial helical CT imaging was performed through the abdomen and pelvis without IV contrast. Reconstructions: Coronal and sagittal. In accordance with CT protocol optimization, one or more of the following dose reduction techniques were utilized for this exam: automated exposure control, adjustment of mA and/or KV based on patient size, or use of iterative reconstructive technique. FINDINGS: Lung Bases: Dependent changes. Right Kidney/Ureter: No stones or hydronephrosis. Mild perinephric fat stranding, symmetric to the contralateral side. Left Kidney/Ureter: A nonobstructing 5 mm left renal calculus versus vascular calcification is noted. There is no hydronephrosis. There is mild perinephric fat stranding, symmetric to the contralateral side. Other Solid Organs: Noncontrast images of the solid organs are grossly unremarkable with stable hyperdensity in the spleen compared to June 2017. Gallbladder/Bile Ducts: Unremarkable. Peritoneal Cavity: No free fluid, free air or cristopher adenopathy. Bowel is grossly unremarkable with the exception of diverticulosis in the sigmoid distribution. Pelvic Organs: No bladder stones or wall thickening. Noncontrast images of the visualized pelvic organs are unremarkable. Vasculature: Atherosclerotic without overt aneurysm. Other: None. IMPRESSION: No urinary tract stones or obstruction. [facility]
[2018-05-09] MEDS ORDERED: HYDROmorphone 1 MG/ML CARPUJECT IM STA (13:49)
--- NOTE | 2018-05-09 13:49 | ED Physician Documentation ---
PD HPI BACK PAIN - Stated complaint Stated Complaint: BACK PX - Chief complaint Chief Complaint: Back Pain - History obtained from History obtained from: Patient, Family () - History of Present Illness Timing - onset: Chronic (but worse since yesterday.) Quality: Pain Worsened by: Movement Similar symptoms before: Treatment (S/P lumbar fusion.) Recently seen: Clinic (Dialysis yesterday.) - Additional information Additional information: The patient is an 83-year-old female who presents with pain in her lower back and both legs, more on the left than the right. She has chronic back pain, and is status post lumbar fusion, but her pain has been worse than usual since yesterday. She has a history of chronic renal failure, on dialysis, and had a longer session of dialysis than usual yesterday. She denies fever, abdominal pain, dysuria or urinary incontinence, numbness or weakness. She denies any recent traumatic injury. Review of Systems Constitutional: denies: Fever Nose: denies: Congestion Cardiac: denies: Chest pain / pressure Respiratory: denies: Dyspnea, Cough GI: denies: Abdominal Pain, Nausea, Vomiting : denies: Dysuria, Incontinent Skin: denies: Rash Musculoskeletal: reports: Back pain, Extremity pain (Left leg more than right.), Extremity swelling (chronically.) Neurologic: denies: Focal weakness, Numbness, Headache PD PAST MEDICAL HISTORY - Past Medical History Cardiovascular: Congestive heart failure, Hypertension, High cholesterol, Murmur Respiratory: None Endocrine/Autoimmune: None GI: Ulcers, Colon polyps : Renal insuffiency HEENT: Chronic sinusitis Psych: None Musculoskeletal: Osteoarthritis Derm: None - Past Surgical History Past Surgical History: Yes General: Appendectomy, Colonoscopy, EGD Ortho: Knee replacement, 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, 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 Cardiovascular: Other HEENT: Cataracts - Present Medications Home Medications: Ambulatory Orders Medication Instructions Recorded Confirmed DULoxetine [Cymbalta] 20 mg PO DAILY 07/27/16 02/21/18 Aspirin Chewable [[place] 81 mg PO DAILY 02/14/17 05/09/18 Aspirin] Atorvastatin Calcium 80 mg PO QPM 02/14/17 05/09/18 Acetaminophen [Tylenol] 650 mg PO Q4HR PRN tablet 02/18/17 02/21/18 Multivitamin [Theragran] 1 tab PO DAILYWM tablet 02/18/17 05/09/18 cloNIDine 0.3 MG PATCH 1 patch TOP Q7D #4 patch 02/18/17 05/09/18 [[id number]] Allopurinol 150 mg PO DAILY 03/15/17 05/09/18 hydrALAZINE [Apresoline] 100 mg PO QID 07/18/17 05/09/18 Chlorthalidone 25 mg PO DAILY 10/31/17 02/21/18 Polyethylene Glycol 3350 [Miralax] 17 gm PO DAILY PRN 10/31/17 02/21/18 Calcium Carbonate [Tums (Calcium 1 tab PO TID 05/09/18 05/09/18 Carbonate 500mg)] Carvedilol 12.5 mg PO BID 05/09/18 05/09/18 Cyclophosphamide 50 mg PO DAILY PM 05/09/18 05/09/18 Doxazosin Mesylate 2 mg PO BID 05/09/18 05/09/18 Folic Acid 5 mg PO DAILY 05/09/18 05/09/18 Furosemide 80 mg PO BID 05/09/18 05/09/18 Lisinopril 40 mg PO BID 05/09/18 05/09/18 Nifedipine [Nifedipine ER] 90 mg PO DAILY PM 05/09/18 05/09/18 Oxycodone HCl/Acetaminophen 1 - 2 each PO Q6H PRN #14 tablet 05/09/18 [Percocet 5-325 mg Tablet] predniSONE [Prednisone] 20 mg PO DAILY 05/09/18 05/09/18 - Allergies Allergies/Adverse Reactions: Allergies Allergy/AdvReac Type Severity Reaction Status Date / Time amoxicillin trihydrate * AdvReac Rash Verified 05/09/18 10:42 [From Augmentin] niacin AdvReac Rash Verified 05/09/18 10:42 [From Niaspan Extended-Release] nifedipine AdvReac Edema Verified 05/09/18 10:42 potassium clavulanate * AdvReac Rash Verified 05/09/18 10:42 [From Augmentin] - Social History Does the pt smoke?: No Smoking Status: Never smoker Does the pt drink ETOH?: Yes Does the pt have substance abuse?: No - Immunizations Immunizations are current?: Yes - POLST Patient has POLST: No PD ED PE NORMAL - Vitals Vital signs reviewed: Yes (Systolic hypertension.) - General General: Alert and oriented X 3, Well developed/nourished - HEENT HEENT: Atraumatic, Moist mucous membranes - Neck Neck: No bony TTP, No JVD - Cardiac Cardiac: RRR - Respiratory Respiratory: No respiratory distress, Clear bilaterally - Abdomen Abdomen: Soft, Non tender - Back Back: No CVA TTP, No spinal TTP - Derm Derm: No rash - Extremities Extremities: No calf tenderness / cord, Other (Lower extremity edema bilaterally. Straight leg raise test is positive on the left at 20 elevation; negative on the right.) - Neuro Neuro: Alert and oriented X 3, No motor deficit, Normal speech Results - Vitals Vitals: Vital Signs - 24 hr 05/09/18 05/09/18 05/09/18 10:36 12:56 15:00 Temperature 36.7 C Heart Rate 58 L 63 63 Respiratory 16 16 16 Rate Blood Pressure 219/59 H 207/55 H 179/87 H O2 Saturation 99 96 96 Oxygen O2 Source Room air - Labs Labs: Laboratory Tests 05/09/18 05/09/18 05/09/18 11:31 11:31 11:40 WBC 3.8 L RBC 3.54 L Hgb 12.2 Hct 37.2 MCV 105.2 H MCH 34.4 H MCHC 32.7 RDW 19.4 H Plt Count 109 L MPV 8.7 Neut # (Auto) 3.0 Lymph # (Auto) 0.4 L [place] # (Auto) 0.4 Eos # (Auto) 0.0 Baso # (Auto) 0.0 Absolute Nucleated RBC 0.00 Nucleated RBC % 0.0 Sodium 139 Potassium 4.5 Chloride 93 L Carbon Dioxide 32 Anion Gap 14.0 H BUN 39 H Creatinine 4.0 H Estimated GFR (MDRD) 11 L Glucose 178 H Calcium 8.7 Total Bilirubin 0.6 AST 21 ALT 13 Alkaline Phosphatase 81 Total Protein 5.9 L Albumin 3.2 Globulin 2.7 Albumin/Globulin Ratio 1.2 Lipase 63 H Urine Color YELLOW Urine Clarity CLEAR Urine pH 8.5 H Ur Specific [place] 1.020 Urine Protein >=300 H Urine Glucose (UA) 100 H Urine Ketones NEGATIVE Urine Occult Blood LARGE H Urine Nitrite NEGATIVE Urine Bilirubin NEGATIVE Urine Urobilinogen 0.2 (NORMAL) Ur Leukocyte Esterase NEGATIVE Urine RBC TNTC H Urine WBC 0-3 Ur Squamous Epith Cells RARE Squamous Urine Bacteria Rare Ur Microscopic Review INDICATED Urine Culture Comments NOT INDICATED - Rads (name of study) LS spine Radiology: Prelim report reviewed, EMP read contemporaneously, See rad report (Lumbar spinal fusion hardware. No acute findings.) CT abd/pelvis w/o Radiology: Prelim report reviewed, EMP read contemporaneously, See rad report (No urinary tract stones or obstruction.) PD MEDICAL DECISION MAKING - ED course Complexity details: reviewed old records, reviewed results, re-evaluated patient, considered differential, d/w patient, d/w family ED course: The patient's presentation is significant for acute exacerbation of chronic low back pain, with left-sided sciatica. X-rays of lumbosacral spine revealed intact hardware from lumbar fusion, with no acute findings. Because of microscopic hematuria, a CT scan of the abdomen and pelvis performed, revealing no evidence of renal calculus or hydronephrosis. Her presentation does not suggest epidural abscess or pyelonephritis. Treatment in the emergency department included administration of morphine 4 mg IM, which did not change her symptoms. Hydromorphone 1 mg is administered IM, which provided slight improvement. She demonstrated ability to ambulate. She is being discharged with prescription for Percocet, 14 tablets. I discussed with her and her symptomatic treatment, outpatient follow-up, as well as potentially worrisome signs or symptoms that should prompt reevaluation in the emergency department. Departure - Departure Disposition: 01 Home, Self Care Clinical Impression: Back pain Qualifiers: Back pain location: low back pain Chronicity: acute Back pain laterality: left Sciatica presence: with sciatica Sciatica laterality: sciatica of left side Qualified Code(s): M54.42 - Lumbago with sciatica, left side Condition: Stable Instructions: ED Sciatica Follow-Up: Jose Luis Carrington ARNP [Primary Care Provider] - Prescriptions: Oxycodone HCl/Acetaminophen [Percocet 5-325 mg Tablet] 1 - 2 each PO Q6H PRN #14 tablet PRN Reason: pain Comments: Apply ice pack to your lower back intermittently for the next 2 or 3 days. You can use Percocet as prescribed if needed for pain. Let pain be your guide to activity level. Follow-up with your primary physician within 1-2 weeks. Call to schedule an appointment. Return to the emergency department if you develop increasing pain, numbness or weakness, urinary incontinence, or otherwise worsening symptoms. Discharge Date/Time: 05/09/18 15:05
[2018-05-09 15:13] VITALS: BP 179/87
== END 2018-05-09 15:05 | disposition home or self-care (01) ==
LOC: ED 10:25
DX: M54.42 Lumbago with sciatica, left side (principal); G89.29 Other chronic pain; Z98.1 Arthrodesis status; I11.0 Hypertensive heart disease with heart failure; I50.9 Heart failure, unspecified; E78.00 Pure hypercholesterolemia, unspecified; Z96.659 Presence of unspecified artificial knee joint; Z79.82 Long term (current) use of aspirin
CPT/HCPCS: 36415; 72100; 74176; 80053; 81001; 83690; 85025; 96372; 99283; J1170; 81003; 87086

== ENCOUNTER 2018-05-12 15:25 | Emergency (ER) | payer MEDICARE, OTHER ==
--- NOTE | 2018-05-12 15:40 | ED Physician Documentation ---
PD HPI BACK PAIN - Stated complaint Stated Complaint: BACK PX - Chief complaint Chief Complaint: Back Pain - History obtained from History obtained from: Patient, Family - History of Present Illness Timing - onset: How many weeks ago (2) Timing - duration: Weeks (2 weeks of left lower back pain radiating to left leg. No noted fall nor injury. Pain worse the past 5-6 days. Increased with ROM; improved with rest. Seen 4-5 days ago here for same and had lumbar xray and then KUB CT without acute findings. Rx Percocet which has not helped, per .) Timing - details: Gradual onset, Waxing and waning Location: Lower, Left Quality: Pain, Sharp. No: Spasm Associated symptoms: No: Fever, Weakness, Numbness, Incontinent of urine Worsened by: Movement (but still hurts even when rested), Twisting, Palpation (left lower back) Contributing factors: Twisting. No: Trauma Recently seen: Emergency Dept (seen few days ago in ER with xray and CT to eval for cause of the pain.) Review of Systems Constitutional: denies: Fever, Chills GI: denies: Abdominal Pain, Vomiting, Diarrhea Skin: denies: Rash, Lesions Musculoskeletal: reports: Back pain. 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 Cardiovascular: Other HEENT: Cataracts - Present Medications Home Medications: Ambulatory Orders Medication Instructions Recorded Confirmed DULoxetine [Cymbalta] 20 mg PO DAILY 07/27/16 02/21/18 Aspirin Chewable [[place] 81 mg PO DAILY 02/14/17 05/09/18 Aspirin] Atorvastatin Calcium 80 mg PO QPM 02/14/17 05/09/18 Acetaminophen [Tylenol] 650 mg PO Q4HR PRN tablet 02/18/17 02/21/18 Multivitamin [Theragran] 1 tab PO DAILYWM tablet 02/18/17 05/09/18 cloNIDine 0.3 MG PATCH 1 patch TOP Q7D #4 patch 02/18/17 05/09/18 [[id number]] Allopurinol 150 mg PO DAILY 03/15/17 05/09/18 hydrALAZINE [Apresoline] 100 mg PO QID 07/18/17 05/09/18 Chlorthalidone 25 mg PO DAILY 10/31/17 02/21/18 Polyethylene Glycol 3350 [Miralax] 17 gm PO DAILY PRN 10/31/17 02/21/18 Calcium Carbonate [Tums (Calcium 1 tab PO TID 05/09/18 05/09/18 Carbonate 500mg)] Carvedilol 12.5 mg PO BID 05/09/18 05/09/18 Cyclophosphamide 50 mg PO DAILY PM 05/09/18 05/09/18 Doxazosin Mesylate 2 mg PO BID 05/09/18 05/09/18 Folic Acid 5 mg PO DAILY 05/09/18 05/09/18 Furosemide 80 mg PO BID 05/09/18 05/09/18 Lisinopril 40 mg PO BID 05/09/18 05/09/18 Nifedipine [Nifedipine ER] 90 mg PO DAILY PM 05/09/18 05/09/18 Oxycodone HCl/Acetaminophen 1 - 2 each PO Q6H PRN #14 tablet 05/09/18 [Percocet 5-325 mg Tablet] predniSONE [Prednisone] 20 mg PO DAILY 05/09/18 05/09/18 Gabapentin [Neurontin] 100 mg PO BID #10 capsule 05/12/18 Lidocaine Patch 5% [Lidoderm Patch] 1 patch TOP DAILY PRN #10 patch 05/12/18 Morphine Sulfate 7.5 mg PO Q8H PRN #10 tablet 05/12/18 - Allergies Allergies/Adverse Reactions: Allergies Allergy/AdvReac Type Severity Reaction Status Date / Time amoxicillin trihydrate * AdvReac Rash Verified 05/09/18 10:42 [From Augmentin] niacin AdvReac Rash Verified 05/09/18 10:42 [From Niaspan Extended-Release] nifedipine AdvReac Edema Verified 05/09/18 10:42 potassium clavulanate * AdvReac Rash Verified 05/12/18 15:35 [From Augmentin] - Social History Does the pt smoke?: No Smoking Status: Never smoker Does the pt drink ETOH?: Yes Does the pt have substance abuse?: No - Immunizations Immunizations are current?: Yes - POLST Patient has POLST: No PD ED PE NORMAL - Vitals Vital signs reviewed: Yes - General General: Alert and oriented X 3, Well developed/nourished, Other (sitting somewhat stiffly for low back. Guarded left lower back ROM. ) - Abdomen Abdomen: Normal bowel sounds, Soft, Non tender, Non distended - Female Female : Deferred - Rectal Rectal: Deferred - Back Back: No CVA TTP, No spinal TTP (tender left lateral lumbar muscles.No rash nor sores. ) - Derm Derm: Normal color, Warm and dry, No rash - Neuro Neuro: No motor deficit, No sensory deficit, Other (1+ DTRs at both knees. ) Results - Vitals Vitals: Vital Signs - 24 hr 05/12/18 05/12/18 05/12/18 15:32 15:55 17:29 Temperature 36.3 C L 36.5 C 36.3 C L Heart Rate 65 64 64 Respiratory 16 12 12 Rate Blood Pressure 221/61 H 217/47 H 221/60 H O2 Saturation 98 98 96 Oxygen O2 Source Room air PD MEDICAL DECISION MAKING - ED course Complexity details: reviewed old records (recent ED visit), reviewed results, considered differential (seems musculoskeletal pain without fever nor focal weakness. Recent CT/xray of area and UA. ), d/w patient (Seems musculoskeletal and had recent CT showing not stone and no apparent fxs/etc.) Departure - Departure Disposition: 01 Home, Self Care Clinical Impression: Acute low back pain Qualifiers: Back pain laterality: left Sciatica presence: with sciatica Sciatica laterality: sciatica of left side Qualified Code(s): M54.42 - Lumbago with sciatica, left side Condition: Stable Record reviewed to determine appropriate education?: Yes Instructions: ED Low Back Pain Injury Follow-Up: Jose Luis Carrington ARNP [Primary Care Provider] - Winsome Cuellar MD [Provider Admit Priv/Credential] - Prescriptions: Gabapentin [Neurontin] 100 mg PO BID #10 capsule Lidocaine Patch 5% [Lidoderm Patch] 1 patch TOP DAILY PRN #10 patch PRN Reason: pain Morphine Sulfate 7.5 mg PO Q8H PRN #10 tablet PRN Reason: Pain Comments: Use the Lidocaine patch daily over the area that hurts. Gabapentin low dose twice daily for the next 5 days. Add Morphine pain medication three times daily (has more consistent/lasting effect than the prior Percocet medication). Follow up with Dr. Cuellar this coming week. Discharge Date/Time: 05/12/18 17:34
[2018-05-12] MEDS ORDERED: HYDROmorphone 2 MG/ML VIAL IM STA (16:18)
[2018-05-12] MEDS ORDERED: KETOROLAC 30 MG/ML VIAL IM STA (16:18)
[2018-05-12] MEDS ORDERED: LIDOCAINE PATCH 5% TOP STA (16:18)
[2018-05-12 17:30] VITALS: BP 221/60
== END 2018-05-12 17:34 | disposition home or self-care (01) ==
LOC: ED 15:25
DX: M54.42 Lumbago with sciatica, left side (principal); I11.0 Hypertensive heart disease with heart failure; I50.9 Heart failure, unspecified; Z96.659 Presence of unspecified artificial knee joint; Z99.2 Dependence on renal dialysis; Z79.82 Long term (current) use of aspirin
CPT/HCPCS: 96372; 99283; A9270; J1170

== ENCOUNTER 2018-06-25 09:08 | Emergency (ER) | payer MEDICARE, OTHER ==
--- NOTE | 2018-06-25 09:35 | ED Physician Documentation ---
History of Present Illness - Stated complaint Stated Complaint: COUGH - Chief complaint Chief Complaint: Resp - History obtained from History obtained from: Patient, Family - History of Present Illness Pain level max: 0 - Additonal information Additional information: History mostly obtained from chart review as patient and unable to provide significant history. Patient does have known dementia and is extremely difficult to interview and otherwise a poor historian. She denies any particular complaints and cannot further isolate what is been going on. Unsure as to last dialysis or compliance with medications. Patient's states that she has generally not been feeling well and noted a cough, but is otherwise unable to provide further history. 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, 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 Cardiovascular: Other HEENT: Cataracts - Present Medications Home Medications: Ambulatory Orders Medication Instructions Recorded Confirmed RX: DULoxetine [Cymbalta] 20 mg PO DAILY 07/27/16 02/21/18 RX: Aspirin Chewable [[place] 81 mg PO DAILY 02/14/17 05/09/18 Aspirin] RX: Atorvastatin Calcium 80 mg PO QPM 02/14/17 05/09/18 RX: Acetaminophen [Tylenol] 650 mg PO Q4HR PRN tablet 02/18/17 02/21/18 RX: Multivitamin [Theragran] 1 tab PO DAILYWM tablet 02/18/17 05/09/18 RX: cloNIDine 0.3 MG PATCH 1 patch TOP Q7D #4 patch 02/18/17 05/09/18 [[id number]] RX: Allopurinol 150 mg PO DAILY 03/15/17 05/09/18 RX: hydrALAZINE [Apresoline] 100 mg PO QID 07/18/17 05/09/18 Polyethylene Glycol 3350 [Miralax] 17 gm PO DAILY PRN 10/31/17 02/21/18 RX: Chlorthalidone 25 mg PO DAILY 10/31/17 02/21/18 Calcium Carbonate [Tums (Calcium 1 tab PO TID 05/09/18 05/09/18 Carbonate 500mg)] Nifedipine [Nifedipine ER] 90 mg PO DAILY PM 05/09/18 05/09/18 Oxycodone HCl/Acetaminophen 1 - 2 each PO Q6H PRN #14 tablet 05/09/18 [Percocet 5-325 mg Tablet] RX: Carvedilol 12.5 mg PO BID 05/09/18 05/09/18 RX: Cyclophosphamide 50 mg PO DAILY PM 05/09/18 05/09/18 RX: Doxazosin Mesylate 2 mg PO BID 05/09/18 05/09/18 RX: Folic Acid 5 mg PO DAILY 05/09/18 05/09/18 RX: Furosemide 80 mg PO BID 05/09/18 05/09/18 RX: Lisinopril 40 mg PO BID 05/09/18 05/09/18 predniSONE [Prednisone] 20 mg PO DAILY 05/09/18 05/09/18 Lidocaine Patch 5% [Lidoderm Patch] 1 patch TOP DAILY PRN #10 patch 05/12/18 RX: Gabapentin [Neurontin] 100 mg PO BID #10 capsule 05/12/18 RX: Morphine Sulfate 7.5 mg PO Q8H PRN #10 tablet 05/12/18 - Allergies Allergies/Adverse Reactions: Allergies Allergy/AdvReac Type Severity Reaction Status Date / Time amoxicillin trihydrate * AdvReac Rash Verified 05/09/18 10:42 [From Augmentin] niacin AdvReac Rash Verified 05/09/18 10:42 [From Niaspan Extended-Release] nifedipine AdvReac Edema Verified 05/09/18 10:42 potassium clavulanate * AdvReac Rash Verified 05/12/18 15:35 [From Augmentin] - Social History Does the pt smoke?: No Smoking Status: Never smoker Does the pt drink ETOH?: Yes Does the pt have substance abuse?: No - Immunizations Immunizations are current?: Yes - POLST Patient has POLST: No PD ED PE NORMAL - General General: Other (Mild respiratory distress alleviated by placement of oxygen, verbal, but unable to provide significant history, warm to the touch. Otherwise well-developed and nourished appearing.) - HEENT HEENT: Atraumatic, Other (No rhinorrhea noted. Pharynx benign, dry mucous membranes.) - Cardiac Cardiac: No murmur, Other (Slightly tachycardic. Distal pulses intact. Appropriate capillary reflex.) - Respiratory Respiratory: Other (Mild respiratory distress With dry cough present. No wheezi ng, but crackles throughout. Poor air movement also throughout.) - Abdomen Abdomen: Soft, Non tender, Non distended - Derm Derm: Normal color, Warm and dry, No rash, Other (Dialysis port in place without surrounding signs of infection or complication) - Extremities Extremities: Other (1+ pitting pedal edema) - Neuro Neuro: No: Alert and oriented X 3 - Psych Psych: No: Normal mood, Normal affect Results - Vitals Vitals: Vital Signs - 24 hr 06/25/18 06/25/18 06/25/18 09:18 09:41 09:56 Temperature 37.4 C Heart Rate 111 H 100 Respiratory 28 H 32 H 25 H Rate Blood Pressure 232/83 H 187/65 H 224/74 H O2 Saturation 70 L 91 L 97 06/25/18 06/25/18 06/25/18 10:29 10:30 11:00 Temperature Heart Rate 99 97 83 Respiratory 35 H 38 H 32 H Rate Blood Pressure 187/65 H 182/63 H 172/63 H O2 Saturation 94 98 99 06/25/18 06/25/18 06/25/18 11:30 12:00 12:30 Temperature Heart Rate 80 78 78 Respiratory 33 H 26 H 24 Rate Blood Pressure 169/62 H 148/47 H 147/58 H O2 Saturation 100 100 100 06/25/18 13:00 Temperature Heart Rate 75 Respiratory 25 H Rate Blood Pressure 149/51 H O2 Saturation 100 Oxygen O2 Source Nasal cannula Oxygen Flow Rate 4 - EKG (time done) 1017 Rate: Rate (enter#) (98) Rhythm: NSR, Other (PVCs) Ischemia: Non specific changes - Labs Labs: Laboratory Tests 06/25/18 06/25/18 06/25/18 09:55 09:55 09:55 WBC 10.9 H RBC 2.91 L Hgb 9.8 L Hct 30.5 L MCV 104.9 H MCH 33.8 H MCHC 32.2 RDW 18.8 H Plt Count 162 MPV 9.3 Neut # (Auto) 10.0 H Lymph # (Auto) 0.6 L [place] # (Auto) 0.3 Eos # (Auto) 0.0 Baso # (Auto) 0.0 Absolute Nucleated RBC 0.00 Nucleated RBC % 0.0 Manual Slide Review Indicated RBC Morph Micro Appear 3+ ANISOCYTOSIS PT 13.1 H INR 1.2 APTT 28.5 Sodium 143 Potassium 5.7 H Chloride 99 L Carbon Dioxide 32 Anion Gap 12.0 BUN 60 H Creatinine 4.1 H Estimated GFR (MDRD) 10 L Glucose 88 Lactic Acid Calcium 9.2 Total Bilirubin 1.1 H AST 71 H ALT 34 Alkaline Phosphatase 131 H Troponin I Total Protein 6.8 Albumin 3.2 Globulin 3.6 Albumin/Globulin Ratio 0.9 L Lipase 56 H Influenza A (Rapid) Influenza B (Rapid) 06/25/18 06/25/18 06/25/18 09:55 10:06 11:04 WBC RBC Hgb Hct MCV MCH MCHC RDW Plt Count MPV Neut # (Auto) Lymph # (Auto) [place] # (Auto) Eos # (Auto) Baso # (Auto) Absolute Nucleated RBC Nucleated RBC % Manual Slide Review RBC Morph Micro Appear PT INR APTT Sodium Potassium Chloride Carbon Dioxide Anion Gap BUN Creatinine Estimated GFR (MDRD) Glucose Lactic Acid 0.9 Calcium Total Bilirubin AST ALT Alkaline Phosphatase Troponin I 0.04 Total Protein Albumin Globulin Albumin/Globulin Ratio Lipase Influenza A (Rapid) Negative Influenza B (Rapid) Negative PD MEDICAL DECISION MAKING - ED course Complexity details: reviewed old records, reviewed results, re-evaluated patient, considered differential, d/w patient, d/w family, d/w medical cost consultant ED course: Most concerning for complications related to patient's underlying disease processes including CHF, hypertension, end-stage renal disease, which appears to be occurring due to renal artery stenosis per chart review, as well as need for dialysis. It is extremely difficult to obtain any history from patient or family. Given patient's appearance, had initial concern for possible sepsis of unknown source. Septic workup started including obtaining access, fluid bolus, labs including cultures, urine and stool cultures also ordered. However, given patient's respiratory status and known dialysis upon chart review, did slow down fluids and eventually stop as chest x-ray revealed likely fluid overload versus opacity. Patient remained afebrile in the ED and had no significant leukocytosis and lab work otherwise only indicated her underlying disease process and need for dialysis. Influenza testing negative. Upon settling in ED, blood pressure is also significantly improved and did not require intervention and do not feel patient was likely experiencing hypertensive urgency or emergency, but reflective of her known renal disease and need for dialysis. Able to contact patient's abstract manager who cooperated the difficulty in obtaining history with patient and endorsed likely noncompliance. His request was to send patient to [facility] and preparations were made for transfer. Did not feel patient required further intervention such as antibiotics at this time. Patient transferred without complication. Departure - Departure Disposition: 02 Transfer Acute Care Hosp Clinical Impression: Hypoxia, Dialysis complication Condition: Fair Discharge Date/Time: 06/25/18 14:45
[2018-06-25] MEDS ORDERED: SODIUM CHLORIDE 0.9% 1,700 ML IV ONE (09:42)
[2018-06-25 10:19] LABS: BASOPHILS % (AUTO) 0.3 %; HGB - HEMOGLOBIN 9.8 g/dL (12.0-16.0); LYMPHOCYTES # (AUTO) 0.6 10^3/uL (1.5-3.5); LYMPHOCYTES % (AUTO) 5.4 %; MEAN CORPUSCULAR HEMOGLOBIN 33.8 pg (27.0-31.0); MEAN CORPUSCULAR HGB CONC 32.2 g/dL (32.0-36.0); MEAN CORPUSCULAR VOLUME 104.9 fL (81.0-99.0); MEAN PLATELET VOLUME 9.3 fL (7.9-10.8); MONOCYTES # (AUTO) 0.3 10^3/uL (0.0-1.0); MONOCYTES % (AUTO) 2.8 %; NEUTROPHILS % (AUTO) 91.5 %; PLT - PLATELET COUNT 162 10^3/uL (130-450); RED BLOOD COUNT 2.91 10^6/uL (4.20-5.40); RED CELL DISTRIBUTION WIDTH 18.8 % (12.0-15.0); WHITE BLOOD COUNT 10.9 x10^3/uL (4.8-10.8)
[2018-06-25 10:35] LABS: ALBUMIN 3.2 g/dL (3.2-5.5); ALBUMIN/GLOBULIN RATIO 0.9 (1.0-2.2); BILIRUBIN,TOTAL 1.1 mg/dL (0.2-1.0); CALCIUM 9.2 mg/dL (8.5-10.3); CREATININE 4.1 mg/dL (0.4-1.0); INR 1.2 (0.8-1.2); PT - PROTHROMBIN TIME 13.1 secs (9.9-12.6); TOTAL PROTEIN 6.8 g/dL (6.7-8.2)
[2018-06-25 10:43] LABS: PARTIAL THROMBOPLASTIN TIME 28.5 secs (24.9-33.3)
--- NOTE | 2018-06-25 10:53 | XRAY Report ---
Reason: chest pain Procedure Date: 06/25/2018 Accession Number: [id number] / [id number] Procedure: XR - Chest 1 View X-Ray CPT Code: 41397 FULL RESULT: EXAM: CHEST RADIOGRAPHY EXAM DATE: 06/25/2018 10:28 AM. CLINICAL HISTORY: Chest pain. COMPARISON: CHEST 2 VIEW 10/16/2017 1:46 PM. TECHNIQUE: 1 view. FINDINGS: Lungs/Pleura: New diffuse patchy pulmonary opacities bilaterally, greater in the lateral right lower lung zone, new mild bilateral perihilar opacities with mild new interstitial thickening, new bilateral small pleural effusions evident. No pneumothorax. Mediastinum: Within exam limitations, the cardiomediastinal contour is normal. Other: The tip of the right internal jugular double-lumen catheter is located in the lower third SVC. IMPRESSION: 1. New bilateral pulmonary opacities without significant cardiomegaly, suggesting interval new fluid overload or acute pulmonary edema versus acute nonspecific bilateral infiltrate. 2. New right internal jugular double-lumen catheter, unremarkable. RADIA
[2018-06-25 11:08] LABS: RBC MORPHOLOGY (MULTIPLE) 3+ ANISOCYTOSIS (NORMAL)
[2018-06-25 13:25] VITALS: BP 149/51
== END 2018-06-25 14:45 | disposition short-term general hospital (02) ==
LOC: ED 09:08
DX: R09.02 Hypoxemia (principal); T80.90XA Unspecified complication following infusion and therapeutic injection, initial encounter; F03.90 Unspecified dementia, unspecified severity, without behavioral disturbance, psychotic disturbance, mood disturbance, and anxiety; I50.9 Heart failure, unspecified; N18.6 End stage renal disease; Z99.2 Dependence on renal dialysis; I12.0 Hypertensive chronic kidney disease with stage 5 chronic kidney disease or end stage renal disease
CPT/HCPCS: 36415; 71045; 80053; 83605; 83690; 84484; 85025; 85610; 85730; 87040; 87275; 87276; 93005; 96360; 99285

== ENCOUNTER 2018-06-25 14:46 | Outpatient (CLI) | payer MEDICARE, OTHER | END 2018-06-25 14:47 | disposition short-term general hospital (02) | LOC: EMS 14:46 | PROVIDERS: ATTEND Surgery | DX: R09.02 Hypoxemia (principal); Z99.2 Dependence on renal dialysis; Z74.01 Bed confinement status | CPT/HCPCS: A0425; A0428 ==